=== PATIENT | male | born 1975 | race Two or more races ===

== ENCOUNTER 2023-06-09 07:21 | Inpatient (IN) | payer BC, OTHER ==
[2023-06-09] MEDS ORDERED: VANCOMYCIN PREMIX 1.75 GM 1,750 MG/350 ML PIGGYBACK IVPB ONE (08:20)
[2023-06-09] MEDS ORDERED: IMIPENEM/CILASTATIN SODIUM 500 MG in SODIUM CHLORIDE 100 ML IV ONE (08:21)
[2023-06-09 10:06] LABS: BASO % 0.5 % (0-2.0); EOS % 0.7 % (0-4.5); HEMATOCRIT 17.7 % (35.4-49); LYMPH % 12.8 % (8-40); MCH 27.6 pg (25.7-33.7); MCHC 35.7 g/dl (32.0-35.9); MEAN CELL VOLUME 77.2 fl (80-96); MEAN PLT VOLUME 7.9 fl (7.5-11.1); MONO % 6.1 % (3.8-10.2); NEUT % 79.9 % (42.8-82.8); PLATELET COUNT 166 10^3/uL (134-434); RBC 2.29 M/mm3 (4.00-5.60); RDW 20.8 % (11.9-15.9); WHITE BLOOD COUNT 8.1 K/mm3 (4.0-10.0)
[2023-06-09 10:11] LABS: HEMOGLOBIN 6.3 GM/dL (11.7-16.9)
[2023-06-09 10:13] LABS: INR 1.22 (0.83-1.09); PROTHROMBIN TIME (PATIENT) 14.1 SEC (9.7-13.0)
[2023-06-09 10:19] LABS: RETICULOCYTES 0.24 % (0.5-1.5)
[2023-06-09 10:46] LABS: ANISOCYTOSIS 3+; MACROCYTOSIS 0
[2023-06-09 10:49] LABS: POTASSIUM 4.4 mmol/L (3.5-5.1)
[2023-06-09 10:54] LABS: ALBUMIN 2.9 g/dl (3.4-5.0); BLOOD UREA NITROGEN 29.8 mg/dL (7-18); CALCIUM 8.6 mg/dL (8.5-10.1)
[2023-06-09 10:56] LABS: ERYTHROCYTE SEDIMENTATION RATE 105 mm/hr (0-20)
[2023-06-09 10:57] LABS: CREATININE 1.2 mg/dL (0.55-1.3)
[2023-06-09 10:58] LABS: TOT PROT 5.9 g/dl (6.4-8.2)
[2023-06-09 10:59] LABS: BILIRUBIN,TOTAL 1.8 mg/dL (0.2-1)
[2023-06-09 12:19] LABS: BILIRUBIN,DIRECT 0.5 mg/dL (0.0-0.2)
[2023-06-09] MEDS: CEFEPIME 1 GM in DEXTROSE 5%-WATER - 50 ML IVPB SCH (17:45)
[2023-06-09] MEDS ORDERED: CEFEPIME 1 GM/100 ML BAG IVPB ONE (17:46)
[2023-06-09] MEDS ORDERED: ACETAMINOPHEN 325 MG TABLET (FP) PO ONE (20:30)
[2023-06-09] MEDS ORDERED: ACETAMINOPHEN 325 MG TABLET (FP) ONE (20:45)
[2023-06-09 23:57] VITALS: BMI 27.8
[2023-06-10] MEDS: CEFEPIME 1 GM in DEXTROSE 5%-WATER - 50 ML IVPB SCH ×3 (01:53→21:32)
[2023-06-10] MEDS: INSULIN SLIDING SCALE (NOVOLOG) 1 VIAL SQ SCH ×3 (06:34→18:32)
[2023-06-10 08:42] LABS: BASO % 0.8 % (0-2.0); EOS % 1.3 % (0-4.5); LYMPH % 14.4 % (8-40); MCHC 36.9 g/dl (32.0-35.9); MONO % 6.5 % (3.8-10.2); PLATELET COUNT 148 10^3/uL (134-434); RBC 2.49 M/mm3 (4.00-5.60); RDW 20.3 % (11.9-15.9)
[2023-06-10 08:52] LABS: POTASSIUM 4.6 mmol/L (3.5-5.1)
[2023-06-10 08:57] LABS: BLOOD UREA NITROGEN 29.2 mg/dL (7-18); CALCIUM 8.3 mg/dL (8.5-10.1)
[2023-06-10 09:01] LABS: CREATININE 1.1 mg/dL (0.55-1.3)
[2023-06-10] MEDS ORDERED: VANCOMYCIN 1 GRAM (PRE-DOCKED) 1,000 MG/250 ML BAG IVPB SCH (10:00)
[2023-06-10 10:25] LABS: ALBUMIN 2.6 g/dl (3.4-5.0)
[2023-06-10 10:27] LABS: BILIRUBIN,DIRECT 0.4 mg/dL (0.0-0.2)
[2023-06-10 10:29] LABS: BILIRUBIN,TOTAL 1.2 mg/dL (0.2-1); TOT PROT 5.5 g/dl (6.4-8.2)
[2023-06-10] MEDS: ACETAMINOPHEN 1000 MG/100 ML BAG IVPB PRN (11:22)
[2023-06-10] MEDS: SODIUM CHLORIDE 0.45% 1,000 ML IV SCH (11:24)
[2023-06-10] MEDS ORDERED: INSULIN (NOVOLOG) ASPART 100 UNITS/ML 10ML VIAL ONE (12:28)
[2023-06-10 12:50] LABS: BILIRUBIN,DIRECT 0.4 mg/dL (0.0-0.2)
[2023-06-10 12:52] LABS: BILIRUBIN,TOTAL 1.8 mg/dL (0.2-1)
[2023-06-10] MEDS ORDERED: BISACODYL 5 MG TABLET.DR (FP) PO ONE (16:00)
[2023-06-10] MEDS: VANCOMYCIN/WATER FOR INJ (PEG) 1,000 MG/200 ML BAG IVPB SCH ×2 (16:55→23:08)
[2023-06-10] MEDS ORDERED: PEG 3350/NA SULF BICARB CL/KCL 4000 ML SOLN.RECON PO ONE (17:00)
[2023-06-10 17:26] LABS: EPI CELLS 2 /uL (0-25.1); HYALINE CASTS 1 /uL (0-3.1); PH,URINE 5.5 (5.0-8.0); URINE APPEARANCE CLEAR; URINE BACTERIA 0 /uL (0-1359); URINE BILIRUBIN NEGATIVE (NEGATIVE); URINE COLOR YELLOW; URINE GLUCOSE (UA) NEGATIVE (NEGATIVE); URINE KETONE NEGATIVE (NEGATIVE); URINE LEUK ESTERASE NEGATIVE (NEGATIVE); URINE NITRITE NEGATIVE (NEGATIVE); URINE PROTEIN 3+ (NEGATIVE); URINE RBC 50 /uL (0-23.9); URINE UROBILINOGEN 0.2 mg/dL (0.2-1.0); URINE WBC 10 /uL (0-25.8)
[2023-06-10 22:21] LABS: HEMATOCRIT 21.5 % (35.4-49); HEMOGLOBIN 7.7 GM/dL (11.7-16.9); MCH 27.6 pg (25.7-33.7); MCHC 35.7 g/dl (32.0-35.9); MEAN CELL VOLUME 77.3 fl (80-96); MEAN PLT VOLUME 7.9 fl (7.5-11.1); PLATELET COUNT 147 10^3/uL (134-434); RBC 2.78 M/mm3 (4.00-5.60); RDW 19.8 % (11.9-15.9); WHITE BLOOD COUNT 6.7 K/mm3 (4.0-10.0)
[2023-06-11] MEDS ORDERED: MELATONIN 5 MG TABLETS PO ONE (01:25)
[2023-06-11] MEDS: ACETAMINOPHEN 1000 MG/100 ML BAG IVPB PRN (01:44)
[2023-06-11] MEDS: CEFEPIME 1 GM in DEXTROSE 5%-WATER - 50 ML IVPB SCH ×3 (01:48→17:19)
[2023-06-11] MEDS ORDERED: INSULIN (NOVOLOG) ASPART 100 UNITS/ML 10ML VIAL ONE ×3 (06:41→17:08)
[2023-06-11] MEDS: INSULIN SLIDING SCALE (NOVOLOG) 1 VIAL SQ SCH ×3 (06:42→17:19)
[2023-06-11 12:41] LABS: BASO % 0.8 % (0-2.0); EOS % 1.4 % (0-4.5); HEMATOCRIT 24.6 % (35.4-49); HEMOGLOBIN 8.6 GM/dL (11.7-16.9); LYMPH % 11.1 % (8-40); MEAN CELL VOLUME 77.1 fl (80-96); MEAN PLT VOLUME 7.8 fl (7.5-11.1); NEUT % 81.7 % (42.8-82.8); PLATELET COUNT 162 10^3/uL (134-434); RBC 3.19 M/mm3 (4.00-5.60); RDW 19.5 % (11.9-15.9); WHITE BLOOD COUNT 8.1 K/mm3 (4.0-10.0)
[2023-06-11] MEDS: COLLAGENASE CLOSTRIDIUM HIST. 30 GRAMS TUBE TP SCH (12:55)
[2023-06-11] MEDS: SODIUM CHLORIDE 0.45% 1,000 ML IV SCH ×2 (12:56→17:26)
[2023-06-11] MEDS: VANCOMYCIN/WATER FOR INJ (PEG) 1,000 MG/200 ML BAG IVPB SCH ×2 (12:57→23:04)
[2023-06-11 13:15] LABS: POTASSIUM 4.3 mmol/L (3.5-5.1)
[2023-06-11 13:19] LABS: CALCIUM 7.9 mg/dL (8.5-10.1)
[2023-06-11 13:20] LABS: ALBUMIN 2.5 g/dl (3.4-5.0); BLOOD UREA NITROGEN 20.5 mg/dL (7-18)
[2023-06-11 13:24] LABS: BILIRUBIN,TOTAL 3.5 mg/dL (0.2-1); CREATININE 0.8 mg/dL (0.55-1.3); TOT PROT 5.2 g/dl (6.4-8.2)
[2023-06-11 15:24] LABS: BILIRUBIN,DIRECT 0.5 mg/dL (0.0-0.2)
[2023-06-12] MEDS: CEFEPIME 1 GM in DEXTROSE 5%-WATER - 50 ML IVPB SCH ×3 (01:45→17:48)
[2023-06-12] MEDS: INSULIN SLIDING SCALE (NOVOLOG) 1 VIAL SQ SCH ×3 (06:26→17:16)
[2023-06-12 09:03] LABS: BASO % 0.8 % (0-2.0); HEMATOCRIT 24.2 % (35.4-49); HEMOGLOBIN 8.8 GM/dL (11.7-16.9); LYMPH % 14.7 % (8-40); MCH 27.5 pg (25.7-33.7); MCHC 36.3 g/dl (32.0-35.9); MEAN CELL VOLUME 75.9 fl (80-96); MONO % 7.3 % (3.8-10.2); NEUT % 74.2 % (42.8-82.8); PLATELET COUNT 166 10^3/uL (134-434); RBC 3.19 M/mm3 (4.00-5.60); RDW 19.8 % (11.9-15.9); WHITE BLOOD COUNT 7.4 K/mm3 (4.0-10.0)
[2023-06-12 09:47] LABS: POTASSIUM 4.2 mmol/L (3.5-5.1)
[2023-06-12 10:19] LABS: CALCIUM 8.1 mg/dL (8.5-10.1)
[2023-06-12 10:35] LABS: CREATININE 0.9 mg/dL (0.55-1.3)
[2023-06-12] MEDS: MULTIVITAMINS THER W-MINERALS COMBO TABLET (FP) PO SCH (10:57)
[2023-06-12] MEDS: VANCOMYCIN/WATER FOR INJ (PEG) 1,000 MG/200 ML BAG IVPB SCH ×2 (10:57→23:35)
[2023-06-12] MEDS: COLLAGENASE CLOSTRIDIUM HIST. 30 GRAMS TUBE TP SCH (10:57)
[2023-06-12] MEDS: SODIUM CHLORIDE 0.45% 1,000 ML IV SCH (11:25)
[2023-06-12] MEDS ORDERED: INSULIN (NOVOLOG) ASPART 100 UNITS/ML 10ML VIAL ONE (12:20)
[2023-06-12] MEDS ORDERED: ACETAMINOPHEN 1000 MG/100 ML BAG IVPB ONE (21:41)
[2023-06-13] MEDS: SODIUM CHLORIDE 0.45% 1,000 ML IV SCH ×3 (02:29→16:57)
[2023-06-13] MEDS: CEFEPIME 1 GM in DEXTROSE 5%-WATER - 50 ML IVPB SCH ×3 (02:30→18:26)
[2023-06-13] MEDS: INSULIN SLIDING SCALE (NOVOLOG) 1 VIAL SQ SCH ×3 (06:19→17:34)
[2023-06-13] MEDS: MULTIVITAMINS THER W-MINERALS COMBO TABLET (FP) PO SCH (11:06)
[2023-06-13] MEDS: VANCOMYCIN/WATER FOR INJ (PEG) 1,000 MG/200 ML BAG IVPB SCH ×2 (11:07→23:48)
[2023-06-13] MEDS: COLLAGENASE CLOSTRIDIUM HIST. 30 GRAMS TUBE TP SCH (11:09)
[2023-06-13] MEDS ORDERED: BISACODYL 5 MG TABLET.DR (FP) PO ONE (16:00)
[2023-06-13] MEDS ORDERED: PEG 3350/NA SULF BICARB CL/KCL 4000 ML SOLN.RECON PO ONE (17:00)
[2023-06-14] MEDS: CEFEPIME 1 GM in DEXTROSE 5%-WATER - 50 ML IVPB SCH ×3 (01:32→17:00)
[2023-06-14] MEDS: INSULIN SLIDING SCALE (NOVOLOG) 1 VIAL SQ SCH ×3 (06:24→17:03)
[2023-06-14] MEDS: SODIUM CHLORIDE 0.45% 1,000 ML IV SCH ×3 (07:10→19:02)
[2023-06-14 10:17] LABS: BASO % 1.4 % (0-2.0); EOS % 2.1 % (0-4.5); HEMATOCRIT 26.6 % (35.4-49); HEMOGLOBIN 9.7 GM/dL (11.7-16.9); LYMPH % 12.8 % (8-40); MCH 28.3 pg (25.7-33.7); MCHC 36.3 g/dl (32.0-35.9); MEAN CELL VOLUME 77.9 fl (80-96); MEAN PLT VOLUME 8.2 fl (7.5-11.1); MONO % 4.8 % (3.8-10.2); NEUT % 78.9 % (42.8-82.8); PLATELET COUNT 195 10^3/uL (134-434); RBC 3.42 M/mm3 (4.00-5.60); RDW 20.9 % (11.9-15.9); WHITE BLOOD COUNT 9.9 K/mm3 (4.0-10.0)
[2023-06-14] MEDS: COLLAGENASE CLOSTRIDIUM HIST. 30 GRAMS TUBE TP SCH (10:24)
[2023-06-14] MEDS: MULTIVITAMINS THER W-MINERALS COMBO TABLET (FP) PO SCH ×2 (10:26→19:03)
[2023-06-14 10:36] LABS: CALCIUM 8.5 mg/dL (8.5-10.1)
[2023-06-14 10:37] LABS: BLOOD UREA NITROGEN 15.2 mg/dL (7-18)
[2023-06-14 10:38] LABS: CREATININE 0.8 mg/dL (0.55-1.3)
[2023-06-14 10:47] LABS: BILIRUBIN,DIRECT 0.6 mg/dL (0.0-0.2)
[2023-06-14 10:48] LABS: BILIRUBIN,TOTAL 2.8 mg/dL (0.2-1)
[2023-06-14] MEDS ORDERED: ACETAMINOPHEN 1000 MG/100 ML BAG IVPB ONE (11:00)
[2023-06-14] MEDS: VANCOMYCIN/WATER FOR INJ (PEG) 1,000 MG/200 ML BAG IVPB SCH ×2 (12:25→23:00)
[2023-06-14] MEDS ORDERED: INSULIN (NOVOLOG) ASPART 100 UNITS/ML 10ML VIAL ONE (16:56)
[2023-06-14] MEDS ORDERED: ONDANSETRON 4 MG/2 ML VIAL IVPUSH ONE (18:49)
[2023-06-15] MEDS: CEFEPIME 1 GM in DEXTROSE 5%-WATER - 50 ML IVPB SCH ×2 (02:40→10:51)
[2023-06-15] MEDS: INSULIN SLIDING SCALE (NOVOLOG) 1 VIAL SQ SCH ×3 (08:02→17:42)
[2023-06-15 09:33] LABS: BASO % 1.2 % (0-2.0); HEMATOCRIT 26.2 % (35.4-49); HEMOGLOBIN 9.3 GM/dL (11.7-16.9); LYMPH % 11.6 % (8-40); MCH 27.8 pg (25.7-33.7); MCHC 35.6 g/dl (32.0-35.9); MEAN CELL VOLUME 78.2 fl (80-96); MEAN PLT VOLUME 7.9 fl (7.5-11.1); MONO % 5.7 % (3.8-10.2); NEUT % 79.5 % (42.8-82.8); PLATELET COUNT 193 10^3/uL (134-434); RBC 3.35 M/mm3 (4.00-5.60); RDW 20.9 % (11.9-15.9); WHITE BLOOD COUNT 7.7 K/mm3 (4.0-10.0)
[2023-06-15 09:57] LABS: POTASSIUM 3.7 mmol/L (3.5-5.1)
[2023-06-15 10:01] LABS: BLOOD UREA NITROGEN 16.3 mg/dL (7-18); CALCIUM 8.4 mg/dL (8.5-10.1)
[2023-06-15 10:04] LABS: CREATININE 0.9 mg/dL (0.55-1.3)
[2023-06-15 10:06] LABS: TOT PROT 5.8 g/dl (6.4-8.2)
[2023-06-15 10:38] LABS: BILIRUBIN,TOTAL 2.1 mg/dL (0.2-1)
[2023-06-15] MEDS: MULTIVITAMINS THER W-MINERALS COMBO TABLET (FP) PO SCH (10:54)
[2023-06-15] MEDS: COLLAGENASE CLOSTRIDIUM HIST. 30 GRAMS TUBE TP SCH (10:54)
[2023-06-15] MEDS: PANTOPRAZOLE 40 MG TABLET PO SCH (10:54)
[2023-06-15] MEDS: VANCOMYCIN/WATER FOR INJ (PEG) 1,000 MG/200 ML BAG IVPB SCH ×2 (12:12→23:16)
[2023-06-15] MEDS: SODIUM CHLORIDE 0.45% 1,000 ML IV SCH (12:18)
[2023-06-16] MEDS: INSULIN SLIDING SCALE (NOVOLOG) 1 VIAL SQ SCH ×3 (07:08→18:33)
[2023-06-16] MEDS ORDERED: INSULIN (NOVOLOG) ASPART 100 UNITS/ML 10ML VIAL ONE ×2 (07:26→19:52)
[2023-06-16] MEDS: MULTIVITAMINS THER W-MINERALS COMBO TABLET (FP) PO SCH (10:21)
[2023-06-16] MEDS: PANTOPRAZOLE 40 MG TABLET PO SCH (10:21)
[2023-06-16] MEDS ORDERED: PROPOFOL 20 ML ONE (11:45)
[2023-06-16] MEDS ORDERED: FENTANYL CITRATE/PF 50 MCG/ML VIAL ONE (11:45)
[2023-06-16] MEDS ORDERED: MIDAZOLAM HCL 2 MG/2 ML SINGLE DOSE VIAL ONE ×2 (11:46→12:42)
[2023-06-16] MEDS ORDERED: LIDOCAINE HCL 2% (20ML MULTI-DOSE VIAL) ONE (12:14)
[2023-06-16] MEDS ORDERED: BUPIVACAINE HCL/PF 0.5% (5MG/ML) 10 ML VIAL ONE (12:14)
[2023-06-16] MEDS ORDERED: LIDOCAINE HCL 2% (50ML VIAL) INF ONE (12:40)
[2023-06-16] MEDS ORDERED: VANCOMYCIN 1,000 MG VIAL (RESTRICTED TO ID ONLY) ONE (13:00)
[2023-06-16] MEDS ORDERED: BUPIVACAINE HCL/PF 0.5% (5 MG/ML) 30 ML VIAL IJ ONE (13:07)
[2023-06-16] MEDS: SODIUM CHLORIDE 0.45% 1,000 ML IV SCH (13:20)
[2023-06-16] MEDS ORDERED: LACTATED RINGERS SOLUTION 1,000 ML IV SCH (13:30)
[2023-06-16] MEDS: COLLAGENASE CLOSTRIDIUM HIST. 30 GRAMS TUBE TP SCH (15:17)
[2023-06-16] MEDS: VANCOMYCIN/WATER FOR INJ (PEG) 1,000 MG/200 ML BAG IVPB SCH (18:32)
[2023-06-17] MEDS: VANCOMYCIN/WATER FOR INJ (PEG) 1,000 MG/200 ML BAG IVPB SCH ×3 (00:08→22:46)
[2023-06-17] MEDS: INSULIN SLIDING SCALE (NOVOLOG) 1 VIAL SQ SCH ×3 (06:55→17:41)
[2023-06-17 08:49] LABS: POTASSIUM 4.1 mmol/L (3.5-5.1)
[2023-06-17 08:49] LABS: BASO % 1.2 % (0-2.0); EOS % 1.9 % (0-4.5); HEMATOCRIT 26.3 % (35.4-49); HEMOGLOBIN 9.5 GM/dL (11.7-16.9); LYMPH % 10.8 % (8-40); MCH 28.1 pg (25.7-33.7); MEAN CELL VOLUME 77.9 fl (80-96); MEAN PLT VOLUME 7.8 fl (7.5-11.1); MONO % 6.8 % (3.8-10.2); NEUT % 79.3 % (42.8-82.8); PLATELET COUNT 200 10^3/uL (134-434); RBC 3.38 M/mm3 (4.00-5.60); RDW 21.7 % (11.9-15.9); WHITE BLOOD COUNT 9.8 K/mm3 (4.0-10.0)
[2023-06-17 08:51] LABS: CALCIUM 8.3 mg/dL (8.5-10.1)
[2023-06-17 08:52] LABS: ALBUMIN 3.1 g/dl (3.4-5.0); BLOOD UREA NITROGEN 18.3 mg/dL (7-18)
[2023-06-17 08:59] LABS: BILIRUBIN,TOTAL 2.4 mg/dL (0.2-1); TOT PROT 6.3 g/dl (6.4-8.2)
[2023-06-17] MEDS: SODIUM CHLORIDE 0.45% 1,000 ML IV SCH (09:52)
[2023-06-17] MEDS: MULTIVITAMINS THER W-MINERALS COMBO TABLET (FP) PO SCH (10:41)
[2023-06-17] MEDS: PANTOPRAZOLE 40 MG TABLET PO SCH (10:41)
[2023-06-17] MEDS ORDERED: ONDANSETRON *ODT* 4 MG TABLET SL PRN (11:43)
[2023-06-17] MEDS ORDERED: ACETAMINOPHEN 325 MG TABLET (FP) PO ONE (19:46)
[2023-06-17] MEDS ORDERED: INSULIN (NOVOLOG) ASPART 100 UNITS/ML 10ML VIAL ONE (21:10)
[2023-06-17] MEDS: INSULIN (LEVEMIR) 100 UNITS/ML UNITS SQ SCH (21:49)
[2023-06-18] MEDS: INSULIN SLIDING SCALE (NOVOLOG) 1 VIAL SQ SCH ×3 (06:14→17:06)
[2023-06-18] MEDS: MULTIVITAMINS THER W-MINERALS COMBO TABLET (FP) PO SCH (10:17)
[2023-06-18] MEDS: PANTOPRAZOLE 40 MG TABLET PO SCH (10:17)
[2023-06-18] MEDS: VANCOMYCIN/WATER FOR INJ (PEG) 1,000 MG/200 ML BAG IVPB SCH ×2 (11:05→23:37)
[2023-06-18] MEDS ORDERED: traMADol HCL 50 MG TABLET PO PRN (11:22)
[2023-06-18] MEDS: CEFEPIME 1 GM in DEXTROSE 5%-WATER 100 ML IVPB SCH ×2 (11:55→17:51)
[2023-06-18] MEDS ORDERED: FENTANYL CITRATE/PF 50 MCG/ML VIAL ONE (12:52)
[2023-06-18] MEDS ORDERED: SODIUM CHLORIDE 500 ML IV SCH (13:15)
[2023-06-18] MEDS ORDERED: FENTANYL CITRATE/PF 50 MCG/ML VIAL IVPUSH ONE ×2 (13:20→13:30)
[2023-06-18] MEDS ORDERED: INSULIN (NOVOLOG) ASPART 100 UNITS/ML 10ML VIAL ONE (16:58)
[2023-06-18] MEDS: INSULIN (LEVEMIR) 100 UNITS/ML UNITS SQ SCH (22:48)
[2023-06-19] MEDS: CEFEPIME 1 GM in DEXTROSE 5%-WATER 100 ML IVPB SCH ×2 (02:12→10:23)
[2023-06-19] MEDS: INSULIN SLIDING SCALE (NOVOLOG) 1 VIAL SQ SCH ×3 (07:01→17:22)
[2023-06-19] MEDS: PANTOPRAZOLE 40 MG TABLET PO SCH (10:23)
[2023-06-19] MEDS: MULTIVITAMINS THER W-MINERALS COMBO TABLET (FP) PO SCH (10:23)
[2023-06-19] MEDS: VANCOMYCIN/WATER FOR INJ (PEG) 1,000 MG/200 ML BAG IVPB SCH (13:50)
[2023-06-19] MEDS: INSULIN (LEVEMIR) 100 UNITS/ML UNITS SQ SCH (22:44)
[2023-06-20] MEDS: INSULIN SLIDING SCALE (NOVOLOG) 1 VIAL SQ SCH ×3 (07:28→17:14)
[2023-06-20] MEDS: PANTOPRAZOLE 40 MG TABLET PO SCH (09:20)
[2023-06-20] MEDS: MULTIVITAMINS THER W-MINERALS COMBO TABLET (FP) PO SCH (09:20)
[2023-06-20] MEDS: HEPARIN NA (PORCINE) 5,000 UNITS/ML 1ML VIAL SQ SCH ×2 (12:32→22:20)
[2023-06-20] MEDS: INSULIN (LEVEMIR) 100 UNITS/ML UNITS SQ SCH (22:20)
[2023-06-21] MEDS: INSULIN SLIDING SCALE (NOVOLOG) 1 VIAL SQ SCH ×2 (07:27→12:23)
[2023-06-21] MEDS: PANTOPRAZOLE 40 MG TABLET PO SCH (10:17)
[2023-06-21] MEDS: MULTIVITAMINS THER W-MINERALS COMBO TABLET (FP) PO SCH (10:17)
[2023-06-21] MEDS: HEPARIN NA (PORCINE) 5,000 UNITS/ML 1ML VIAL SQ SCH (10:17)
[2023-06-21 10:28] VITALS: BP 134/66; PULSE 77; RESP 18; TEMP 97.9
[2023-06-21] MEDS ORDERED: INSULIN (NOVOLOG) ASPART 100 UNITS/ML 10ML VIAL ONE (12:20)
== END 2023-06-21 15:32 | disposition home or self-care (01) | DRG 617 ==
LOC: JER 07:21 → JERBED 11:29 → J8W 22:06
PROVIDERS: ADMIT Internal Medicine; ATTEND Internal Medicine
PROC: 30233N1 Transfusion of Nonautologous Red Blood Cells into Peripheral Vein, Percutaneous Approach (ICD-10-PCS; 2023-06-09)
PROC: 0DB98ZX Excision of Duodenum, Via Natural or Artificial Opening Endoscopic, Diagnostic (ICD-10-PCS; 2023-06-14)
PROC: 0DB58ZX Excision of Esophagus, Via Natural or Artificial Opening Endoscopic, Diagnostic (ICD-10-PCS; 2023-06-14)
PROC: 0DBN8ZX Excision of Sigmoid Colon, Via Natural or Artificial Opening Endoscopic, Diagnostic (ICD-10-PCS; 2023-06-14)
PROC: 0DBP8ZX Excision of Rectum, Via Natural or Artificial Opening Endoscopic, Diagnostic (ICD-10-PCS; 2023-06-14)
PROC: 0Y6Q0Z1 Detachment at Left 1st Toe, High, Open Approach (ICD-10-PCS; principal; 2023-06-16 12:00)
PROC: 07BH3ZX Excision of Right Inguinal Lymphatic, Percutaneous Approach, Diagnostic (ICD-10-PCS; 2023-06-17)
PROC: 07DR3ZX Extraction of Iliac Bone Marrow, Percutaneous Approach, Diagnostic (ICD-10-PCS; 2023-06-18)
DX: E11.69 Type 2 diabetes mellitus with other specified complication (principal); M86.172 Other acute osteomyelitis, left ankle and foot; E11.621 Type 2 diabetes mellitus with foot ulcer; L97.529 Non-pressure chronic ulcer of other part of left foot with unspecified severity; L03.032 Cellulitis of left toe; Z88.0 Allergy status to penicillin; D64.9 Anemia, unspecified; D55.0 Anemia due to glucose-6-phosphate dehydrogenase [G6PD] deficiency; E11.65 Type 2 diabetes mellitus with hyperglycemia; K44.9 Diaphragmatic hernia without obstruction or gangrene; K64.8 Other hemorrhoids; K57.90 Diverticulosis of intestine, part unspecified, without perforation or abscess without bleeding; K63.5 Polyp of colon; K62.1 Rectal polyp; K21.00 Gastro-esophageal reflux disease with esophagitis, without bleeding
CPT/HCPCS: 20225; 36415; 36430; 38505; 71045-TC-FY; 71250-TC; 73630-TC-LT; 73723-LT; 74176-TC; 76705-TC; 80048; 80053; 80076; 81003; 82247; 82248; 82550; 82728; 82955; 82962; 83010; 83021; 83036; 83051; 83540; 83550; 83615; 84155; 84165; 85025; 85027; 85041; 85045; 85610; 85651; 85660; 86140; 86704; 86803; 86850; 86880; 86900; 86901; 86922; 87040; 87070; 87075; 87086; 87205; 87340; 87517; 88300-TC; 88305-TC; 88311-TC; 93005; 93010; 93970-TC; 94760; 99285-25; G0480; J1644; J3370; P9058

== ENCOUNTER 2023-07-21 07:27 | Inpatient (IN) | payer BC, OTHER ==
[2023-07-21 07:35] VITALS: BMI 31.6
[2023-07-21 09:54] LABS: EOS % 0.8 % (0-4.5); HEMATOCRIT 25.2 % (35.4-49); HEMOGLOBIN 9.1 GM/dL (11.7-16.9); LYMPH % 10.9 % (8-40); MCH 28.8 pg (25.7-33.7); MCHC 36.2 g/dl (32.0-35.9); MEAN CELL VOLUME 79.6 fl (80-96); MEAN PLT VOLUME 7.8 fl (7.5-11.1); NEUT % 80.3 % (42.8-82.8); PLATELET COUNT 187 10^3/uL (134-434); RBC 3.17 M/mm3 (4.00-5.60); RDW 20.8 % (11.9-15.9); WHITE BLOOD COUNT 8.9 K/mm3 (4.0-10.0)
[2023-07-21 09:56] LABS: EPI CELLS 1 /uL (0-25.1); HYALINE CASTS 0 /uL (0-3.1); PH,URINE 5.5 (5.0-8.0); URINE APPEARANCE CLEAR; URINE BACTERIA 5 /uL (0-1359); URINE BILIRUBIN NEGATIVE (NEGATIVE); URINE COLOR YELLOW; URINE GLUCOSE (UA) NEGATIVE (NEGATIVE); URINE KETONE NEGATIVE (NEGATIVE); URINE LEUK ESTERASE NEGATIVE (NEGATIVE); URINE NITRITE NEGATIVE (NEGATIVE); URINE PROTEIN 3+ (NEGATIVE); URINE RBC 161 /uL (0-23.9); URINE WBC 7 /uL (0-25.8)
[2023-07-21 09:57] LABS: INR 1.22 (0.83-1.09); PROTHROMBIN TIME (PATIENT) 14.1 SEC (9.7-13.0)
[2023-07-21 10:00] LABS: ACTIVATED PTT 34.3 SECONDS (25.2-36.5)
[2023-07-21 10:17] LABS: ANISOCYTOSIS 2+; MACROCYTOSIS 1+
[2023-07-21 10:19] LABS: POTASSIUM 4.4 mmol/L (3.5-5.1)
[2023-07-21 10:21] LABS: ALBUMIN 3.2 g/dl (3.4-5.0); BLOOD UREA NITROGEN 23.8 mg/dL (7-18); CALCIUM 8.4 mg/dL (8.5-10.1)
[2023-07-21 10:25] LABS: CREATININE 1.1 mg/dL (0.55-1.3)
[2023-07-21 10:26] LABS: BILIRUBIN,TOTAL 2.4 mg/dL (0.2-1); TOT PROT 6.2 g/dl (6.4-8.2)
[2023-07-21] MEDS ORDERED: FUROSEMIDE 40 MG/4 ML INJECTABLE VIAL IVPUSH ONE (10:47)
[2023-07-21] MEDS ORDERED: CEFTRIAXONE 1,000 MG in DEXTROSE 5%-WATER - 50 ML IVPB ONE (10:47)
[2023-07-21] MEDS ORDERED: AZITHROMYCIN 250 MG TABLET PO ONE (10:48)
[2023-07-21] MEDS ORDERED: FUROSEMIDE 40 MG/4 ML INJECTABLE VIAL ONE (11:14)
[2023-07-21] MEDS ORDERED: CEFTRIAXONE 1 GM/50 ML BAG ONE (11:16)
[2023-07-21] MEDS ORDERED: AZITHROMYCIN 500 MG TABLET ONE (11:40)
[2023-07-21 11:45] LABS: BILIRUBIN,DIRECT 0.8 mg/dL (0.0-0.2)
[2023-07-21] MEDS ORDERED: ACETAMINOPHEN 1000 MG/100 ML BAG IVPB PRN (14:23)
[2023-07-21] MEDS ORDERED: TRIMETHOBENZAMIDE HCL 200MG/2ML INJ IM PRN (14:24)
[2023-07-21] MEDS ORDERED: ACETAMINOPHEN INJECTION 100 ML IVPB ONE (16:28)
[2023-07-22] MEDS: FUROSEMIDE 40 MG/4 ML INJECTABLE VIAL IVPUSH SCH ×2 (05:32→13:28)
[2023-07-22 08:28] LABS: BASO % 1.2 % (0-2.0); HEMATOCRIT 27.8 % (35.4-49); LYMPH % 14.7 % (8-40); MCH 28.6 pg (25.7-33.7); MEAN CELL VOLUME 79.4 fl (80-96); MEAN PLT VOLUME 7.9 fl (7.5-11.1); MONO % 6.9 % (3.8-10.2); NEUT % 76.2 % (42.8-82.8); PLATELET COUNT 206 10^3/uL (134-434); RDW 20.7 % (11.9-15.9)
[2023-07-22 09:02] LABS: ALBUMIN 3.1 g/dl (3.4-5.0); BLOOD UREA NITROGEN 28.2 mg/dL (7-18); CALCIUM 8.5 mg/dL (8.5-10.1)
[2023-07-22 09:06] LABS: CREATININE 1.2 mg/dL (0.55-1.3)
[2023-07-22 09:07] LABS: BILIRUBIN,TOTAL 2.1 mg/dL (0.2-1)
[2023-07-22 09:08] LABS: TOT PROT 6.2 g/dl (6.4-8.2)
[2023-07-22] MEDS ORDERED: AZITHROMYCIN IVPB 500 MG/250 ML BAG IVPB SCH (10:00)
[2023-07-22] MEDS: PANTOPRAZOLE 40 MG TABLET PO SCH (17:02)
[2023-07-22] MEDS: LISINOPRIL 5 MG TABLET PO SCH (17:03)
[2023-07-23] MEDS: FUROSEMIDE 40 MG/4 ML INJECTABLE VIAL IVPUSH SCH ×2 (05:42→13:52)
[2023-07-23 09:27] LABS: BASO % 0.7 % (0-2.0); EOS % 0.7 % (0-4.5); HEMATOCRIT 25.7 % (35.4-49); HEMOGLOBIN 9.3 GM/dL (11.7-16.9); LYMPH % 12.8 % (8-40); MCH 28.6 pg (25.7-33.7); MCHC 36.3 g/dl (32.0-35.9); MEAN CELL VOLUME 78.7 fl (80-96); MEAN PLT VOLUME 7.9 fl (7.5-11.1); NEUT % 78.8 % (42.8-82.8); PLATELET COUNT 183 10^3/uL (134-434); RBC 3.26 M/mm3 (4.00-5.60); RDW 20.1 % (11.9-15.9); WHITE BLOOD COUNT 7.5 K/mm3 (4.0-10.0)
[2023-07-23 09:56] LABS: ALBUMIN 3.2 g/dl (3.4-5.0); BLOOD UREA NITROGEN 25.3 mg/dL (7-18); CREATININE 1.2 mg/dL (0.55-1.3)
[2023-07-23 09:58] LABS: BILIRUBIN,TOTAL 2.4 mg/dL (0.2-1); CALCIUM 8.9 mg/dL (8.5-10.1)
[2023-07-23] MEDS: PANTOPRAZOLE 40 MG TABLET PO SCH (10:17)
[2023-07-23] MEDS: LISINOPRIL 5 MG TABLET PO SCH (10:17)
[2023-07-23 21:06] LABS: ANTIGLOMERULAR BASEMENT MEN.AB <0.2 units (0.0-0.9)
[2023-07-24] MEDS ORDERED: FUROSEMIDE 40 MG TABLET (FP) PO ONE (06:00)
[2023-07-24] MEDS: FUROSEMIDE 40 MG/4 ML INJECTABLE VIAL IVPUSH SCH ×2 (06:39→18:13)
[2023-07-24] MEDS: PANTOPRAZOLE 40 MG TABLET PO SCH (09:02)
[2023-07-24] MEDS: metoPROLOL SUCCINATE 25 MG TAB.SR.24H (FP) PO SCH (09:02)
[2023-07-24] MEDS ORDERED: ALBUTEROL SO4 2.5/IPRATROPIUM 0.5 INH SOL 3 ML VIAL.NEB. NEB PRN (09:32)
[2023-07-24] MEDS: INSULIN ASPART SLIDING SCALE (NOVOLOG) 1 VIAL SQ SCH ×2 (11:33→16:35)
[2023-07-24] MEDS: INSULIN (LEVEMIR) 100 UNITS/ML UNITS SQ SCH (21:25)
[2023-07-25] MEDS: FUROSEMIDE 40 MG/4 ML INJECTABLE VIAL IVPUSH SCH ×2 (05:55→13:14)
[2023-07-25] MEDS: INSULIN ASPART SLIDING SCALE (NOVOLOG) 1 VIAL SQ SCH ×3 (06:40→16:56)
[2023-07-25] MEDS: metoPROLOL SUCCINATE 25 MG TAB.SR.24H (FP) PO SCH (09:25)
[2023-07-25] MEDS: PANTOPRAZOLE 40 MG TABLET PO SCH (09:25)
[2023-07-25] MEDS: SACUBITRIL/VALSARTAN 24 MG-26 MG TABLET PO SCH ×2 (09:25→21:25)
[2023-07-25] MEDS ORDERED: INSULIN ASPART SLIDING SCALE (NOVOLOG) 1 VIAL SQ ONE (11:31)
[2023-07-25] MEDS: INSULIN (LEVEMIR) 100 UNITS/ML UNITS SQ SCH (21:25)
[2023-07-26] MEDS: INSULIN ASPART SLIDING SCALE (NOVOLOG) 1 VIAL SQ SCH ×3 (05:59→17:10)
[2023-07-26] MEDS: FUROSEMIDE 40 MG/4 ML INJECTABLE VIAL IVPUSH SCH ×2 (05:59→13:56)
[2023-07-26] MEDS ORDERED: INSULIN (LEVEMIR) 100 UNITS/ML UNITS SQ ONE (07:19)
[2023-07-26] MEDS ORDERED: INSULIN ASPART SLIDING SCALE (NOVOLOG) 1 VIAL SQ ONE (07:19)
[2023-07-26] MEDS: SACUBITRIL/VALSARTAN 24 MG-26 MG TABLET PO SCH ×2 (09:10→21:34)
[2023-07-26] MEDS: PANTOPRAZOLE 40 MG TABLET PO SCH (09:11)
[2023-07-26] MEDS: metoPROLOL SUCCINATE 25 MG TAB.SR.24H (FP) PO SCH (09:11)
[2023-07-26 09:23] LABS: BASO % 1.1 % (0-2.0); EOS % 1.5 % (0-4.5); HEMATOCRIT 26.8 % (35.4-49); HEMOGLOBIN 9.5 GM/dL (11.7-16.9); LYMPH % 14.6 % (8-40); MCH 27.8 pg (25.7-33.7); MCHC 35.5 g/dl (32.0-35.9); MEAN CELL VOLUME 78.4 fl (80-96); MONO % 5.9 % (3.8-10.2); NEUT % 76.9 % (42.8-82.8); PLATELET COUNT 216 10^3/uL (134-434); RBC 3.41 M/mm3 (4.00-5.60); RDW 20.7 % (11.9-15.9); WHITE BLOOD COUNT 8.4 K/mm3 (4.0-10.0)
[2023-07-26 09:40] LABS: POTASSIUM 4.5 mmol/L (3.5-5.1)
[2023-07-26 09:43] LABS: CALCIUM 8.3 mg/dL (8.5-10.1)
[2023-07-26 09:44] LABS: ALBUMIN 3.2 g/dl (3.4-5.0); BLOOD UREA NITROGEN 36.4 mg/dL (7-18)
[2023-07-26 09:47] LABS: CREATININE 1.2 mg/dL (0.55-1.3)
[2023-07-26 09:48] LABS: TOT PROT 6.2 g/dl (6.4-8.2)
[2023-07-26 09:49] LABS: BILIRUBIN,TOTAL 2.3 mg/dL (0.2-1)
[2023-07-26] MEDS ORDERED: FENTANYL CITRATE/PF 50 MCG/ML VIAL ONE (10:36)
[2023-07-26] MEDS ORDERED: MIDAZOLAM HCL 2 MG/2 ML SINGLE DOSE VIAL ONE (10:36)
[2023-07-26] MEDS ORDERED: SODIUM CHLORIDE 500 ML IV ONE (11:30)
[2023-07-26] MEDS ORDERED: FENTANYL CITRATE/PF 50 MCG/ML VIAL IVPUSH ONE (11:48)
[2023-07-26] MEDS ORDERED: MIDAZOLAM HCL 2 MG/2 ML SINGLE DOSE VIAL IVPUSH ONE (11:48)
[2023-07-26 12:49] LABS: ANISOCYTOSIS 2+; MACROCYTOSIS 0
[2023-07-26 16:08] LABS: ATYPICAL pANCA <1:20 titer (Neg:<1:20); C-ANCA <1:20 titer (Neg:<1:20)
[2023-07-26 16:08] LABS: ATYPICAL pANCA <1:20 titer (Neg:<1:20); C-ANCA <1:20 titer (Neg:<1:20)
[2023-07-26] MEDS: INSULIN (LEVEMIR) 100 UNITS/ML UNITS SQ SCH (21:39)
[2023-07-27] MEDS: FUROSEMIDE 40 MG/4 ML INJECTABLE VIAL IVPUSH SCH ×2 (06:18→13:01)
[2023-07-27] MEDS: INSULIN ASPART SLIDING SCALE (NOVOLOG) 1 VIAL SQ SCH ×3 (06:23→16:58)
[2023-07-27 08:49] LABS: HEMATOCRIT 30.4 % (35.4-49); HEMOGLOBIN 10.6 GM/dL (11.7-16.9); MCH 27.5 pg (25.7-33.7); MCHC 34.9 g/dl (32.0-35.9); MEAN CELL VOLUME 78.6 fl (80-96); PLATELET COUNT 271 10^3/uL (134-434); RBC 3.87 M/mm3 (4.00-5.60); RDW 20.8 % (11.9-15.9)
[2023-07-27] MEDS: PANTOPRAZOLE 40 MG TABLET PO SCH (09:03)
[2023-07-27] MEDS: SACUBITRIL/VALSARTAN 24 MG-26 MG TABLET PO SCH ×2 (09:03→21:24)
[2023-07-27] MEDS: metoPROLOL SUCCINATE 25 MG TAB.SR.24H (FP) PO SCH (09:03)
[2023-07-27 09:12] LABS: CALCIUM 8.8 mg/dL (8.5-10.1)
[2023-07-27 09:13] LABS: ALBUMIN 3.4 g/dl (3.4-5.0); BLOOD UREA NITROGEN 32.9 mg/dL (7-18)
[2023-07-27 09:16] LABS: CREATININE 1.2 mg/dL (0.55-1.3)
[2023-07-27 09:18] LABS: BILIRUBIN,TOTAL 2.7 mg/dL (0.2-1); TOT PROT 6.7 g/dl (6.4-8.2)
[2023-07-27] MEDS: INSULIN (LEVEMIR) 100 UNITS/ML UNITS SQ SCH (21:30)
[2023-07-28] MEDS: FUROSEMIDE 40 MG/4 ML INJECTABLE VIAL IVPUSH SCH ×2 (06:09→13:06)
[2023-07-28] MEDS: INSULIN ASPART SLIDING SCALE (NOVOLOG) 1 VIAL SQ SCH ×3 (06:15→16:39)
[2023-07-28] MEDS ORDERED: REGADENOSON 0.4 MG/5 ML PRE-FILLED SYRINGE IVPUSH ONE ×2 (09:29→10:00)
[2023-07-28] MEDS ORDERED: AMINOPHYLLINE 250 MG/10 ML VIAL IVPUSH ONE (11:25)
[2023-07-28] MEDS ORDERED: AMINOPHYLLINE 250 MG/10 ML VIAL ONE (11:48)
[2023-07-28] MEDS: PANTOPRAZOLE 40 MG TABLET PO SCH (12:32)
[2023-07-28] MEDS: SACUBITRIL/VALSARTAN 24 MG-26 MG TABLET PO SCH ×2 (12:32→21:28)
[2023-07-28] MEDS: metoPROLOL SUCCINATE 25 MG TAB.SR.24H (FP) PO SCH (12:33)
[2023-07-28] MEDS: INSULIN (LEVEMIR) 100 UNITS/ML UNITS SQ SCH (21:27)
[2023-07-29] MEDS: FUROSEMIDE 40 MG/4 ML INJECTABLE VIAL IVPUSH SCH ×2 (06:11→13:24)
[2023-07-29] MEDS: INSULIN ASPART SLIDING SCALE (NOVOLOG) 1 VIAL SQ SCH ×3 (06:11→16:54)
[2023-07-29 08:40] LABS: HEMATOCRIT 23.2 % (35.4-49); HEMOGLOBIN 8.6 GM/dL (11.7-16.9); MCH 28.5 pg (25.7-33.7); MCHC 37.3 g/dl (32.0-35.9); MEAN CELL VOLUME 76.5 fl (80-96); PLATELET COUNT 198 10^3/uL (134-434); RBC 3.03 M/mm3 (4.00-5.60); RDW 20.8 % (11.9-15.9); WHITE BLOOD COUNT 7.8 K/mm3 (4.0-10.0)
[2023-07-29 09:18] LABS: POTASSIUM 4.3 mmol/L (3.5-5.1)
[2023-07-29 09:20] LABS: BLOOD UREA NITROGEN 39.2 mg/dL (7-18); CALCIUM 8.4 mg/dL (8.5-10.1)
[2023-07-29 09:23] LABS: CREATININE 1.2 mg/dL (0.55-1.3)
[2023-07-29 09:25] LABS: TOT PROT 5.9 g/dl (6.4-8.2)
[2023-07-29 09:26] LABS: BILIRUBIN,TOTAL 3.6 mg/dL (0.2-1)
[2023-07-29] MEDS: SACUBITRIL/VALSARTAN 24 MG-26 MG TABLET PO SCH ×2 (09:53→21:24)
[2023-07-29] MEDS: PANTOPRAZOLE 40 MG TABLET PO SCH (09:54)
[2023-07-29] MEDS: metoPROLOL SUCCINATE 25 MG TAB.SR.24H (FP) PO SCH (09:54)
[2023-07-29] MEDS ORDERED: BUPIVACAINE HCL/PF 0.5% (5MG/ML) 10 ML VIAL ONE ×2 (13:03→13:09)
[2023-07-29] MEDS ORDERED: ceFAZolin 2 GRAM PREMIX BAG IVPB ONE (14:12)
[2023-07-29] MEDS ORDERED: PROPOFOL 20 ML ONE ×2 (14:52→16:02)
[2023-07-29] MEDS ORDERED: LIDOCAINE HCL/PF 2% SDV 5ML VIAL ONE (14:52)
[2023-07-29] MEDS ORDERED: MIDAZOLAM HCL 2 MG/2 ML SINGLE DOSE VIAL ONE (14:52)
[2023-07-29] MEDS ORDERED: ceFAZolin SODIUM 1 GM VIAL ONE (16:12)
[2023-07-29] MEDS ORDERED: LIDOCAINE HCL 1%, 10 MG/ML (50 mL VIAL) INF ONE ×2 (16:32)
[2023-07-29] MEDS ORDERED: BUPIVACAINE HCL/PF 0.5% (5MG/ML) 10 ML VIAL IJ ONE ×2 (16:32)
[2023-07-29] MEDS ORDERED: LACTATED RINGERS SOLUTION 1,000 ML IV SCH (17:00)
[2023-07-29] MEDS ORDERED: TRIMETHOBENZAMIDE HCL 200MG/2ML INJ IM PRN (17:02)
[2023-07-29] MEDS: ACETAMINOPHEN 1000 MG/100 ML BAG IVPB SCH (21:36)
[2023-07-29] MEDS ORDERED: INSULIN (LEVEMIR) 100 UNITS/ML UNITS SQ SCH (22:00)
[2023-07-29 23:16] VITALS: RESP 18
[2023-07-30] MEDS: FUROSEMIDE 40 MG TABLET (FP) PO SCH ×2 (05:29→13:24)
[2023-07-30] MEDS: ACETAMINOPHEN 1000 MG/100 ML BAG IVPB SCH ×2 (05:33→10:21)
[2023-07-30] MEDS ORDERED: FUROSEMIDE 40 MG/4 ML INJECTABLE VIAL IVPUSH SCH (06:00)
[2023-07-30] MEDS ORDERED: FUROSEMIDE 40 MG TABLET (FP) PO SCH (06:00)
[2023-07-30] MEDS: INSULIN ASPART SLIDING SCALE (NOVOLOG) 1 VIAL SQ SCH ×2 (06:03→10:42)
[2023-07-30 08:48] VITALS: BP 119/60; PULSE 80; TEMP 97.7
[2023-07-30] MEDS ORDERED: PANTOPRAZOLE 40 MG TABLET PO SCH (10:00)
[2023-07-30] MEDS ORDERED: metoPROLOL SUCCINATE 25 MG TAB.SR.24H (FP) PO SCH (10:00)
[2023-07-30] MEDS: SACUBITRIL/VALSARTAN 24 MG-26 MG TABLET PO SCH (10:16)
== END 2023-07-30 14:00 | disposition home or self-care (01) | DRG 264 ==
LOC: JER 07:27 → JERBED 10:53 → J6S 19:26
PROVIDERS: ADMIT Internal Medicine; ATTEND Internal Medicine
PROC: 0TB13ZX Excision of Left Kidney, Percutaneous Approach, Diagnostic (ICD-10-PCS; 2023-07-26)
PROC: 07BJ0ZX Excision of Left Inguinal Lymphatic, Open Approach, Diagnostic (ICD-10-PCS; principal; 2023-07-29 14:30)
DX: I50.23 Acute on chronic systolic (congestive) heart failure (principal); J18.9 Pneumonia, unspecified organism; L03.116 Cellulitis of left lower limb; E87.70 Fluid overload, unspecified; R59.1 Generalized enlarged lymph nodes; D55.0 Anemia due to glucose-6-phosphate dehydrogenase [G6PD] deficiency; E11.621 Type 2 diabetes mellitus with foot ulcer; L97.529 Non-pressure chronic ulcer of other part of left foot with unspecified severity; R80.9 Proteinuria, unspecified
CPT/HCPCS: 0241U-QW; 36415; 50200; 71046-TC-FY; 76775-TC; 76942-TC; 78452-TC; 80053; 80076; 81003; 82570; 82962; 83010; 83036; 83516; 83520; 83615; 83880; 84155; 84156; 84165; 84484; 85025; 85027; 85610; 85730; 86038; 86160; 86225; 86256; 86850; 86880; 86900; 86901; 87086; 88300-TC; 88307-TC; 88329; 93005; 93010; 93017; 93306-TC; 94010; 94760; 99285-25; A9502; J2785

== ENCOUNTER 2023-09-27 07:36 | Inpatient (IN) | payer BC ==
[2023-09-27] MEDS ORDERED: ACETAMINOPHEN INJECTION 100 ML IVPB ONE (09:29)
[2023-09-27] MEDS ORDERED: FUROSEMIDE 40 MG/4 ML INJECTABLE VIAL ONE (09:29)
[2023-09-27] MEDS: ACETAMINOPHEN 1000 MG/100 ML BAG IVPB ONE (09:33)
[2023-09-27] MEDS: FUROSEMIDE 40 MG/4 ML INJECTABLE VIAL IVPUSH ONE (09:43)
[2023-09-27] MEDS ORDERED: CEFEPIME HCL 2 GM VIAL (RESTRICTED TO ID) IVPB ONE (09:45)
[2023-09-27 09:48] LABS: INR 1.31 (0.83-1.09); PROTHROMBIN TIME (PATIENT) 15.1 SEC (9.7-13.0)
[2023-09-27] MEDS: VANCOMYCIN 1,000 MG in DEXTROSE 5%-WATER - 250 ML IVPB ONE (09:48)
[2023-09-27 09:49] LABS: BASO % 0.9 % (0-2.0); EOS % 0.6 % (0-4.5); HEMATOCRIT 19.3 % (35.4-49); MCH 28.1 pg (25.7-33.7); MCHC 35.9 g/dl (32.0-35.9); MEAN CELL VOLUME 78.3 fl (80-96); MEAN PLT VOLUME 7.8 fl (7.5-11.1); MONO % 6.8 % (3.8-10.2); NEUT % 82.7 % (42.8-82.8); PLATELET COUNT 216 10^3/uL (134-434); RBC 2.46 M/mm3 (4.00-5.60); RDW 20.7 % (11.9-15.9)
[2023-09-27 09:51] LABS: ACTIVATED PTT 33.4 SECONDS (25.2-36.5)
[2023-09-27 09:58] LABS: HEMOGLOBIN 6.9 GM/dL (11.7-16.9)
[2023-09-27 10:05] LABS: POTASSIUM 4.5 mmol/L (3.5-5.1)
[2023-09-27 10:06] LABS: MAGNESIUM 2.1 mg/dL (1.8-2.4)
[2023-09-27 10:07] LABS: ALBUMIN 2.8 g/dl (3.4-5.0); BLOOD UREA NITROGEN 26.7 mg/dL (7-18); CALCIUM 8.7 mg/dL (8.5-10.1)
[2023-09-27 10:10] LABS: CREATININE 1.2 mg/dL (0.55-1.3)
[2023-09-27 10:12] LABS: BILIRUBIN,TOTAL 2.1 mg/dL (0.2-1); TOT PROT 6.5 g/dl (6.4-8.2)
[2023-09-27 10:14] LABS: N-TERMINAL BNP 7800.4 pg/ml (5-125)
[2023-09-27 10:31] LABS: ANISOCYTOSIS 2+; MACROCYTOSIS 1+
[2023-09-27 10:42] LABS: ERYTHROCYTE SEDIMENTATION RATE 119 mm/hr (0-20)
[2023-09-27 16:11] LABS: BASO % 0.6 % (0-2.0); HEMATOCRIT 17.2 % (35.4-49); LYMPH % 13.2 % (8-40); MCH 28.5 pg (25.7-33.7); MCHC 36.2 g/dl (32.0-35.9); MEAN CELL VOLUME 78.7 fl (80-96); MEAN PLT VOLUME 7.1 fl (7.5-11.1); MONO % 6.9 % (3.8-10.2); NEUT % 78.3 % (42.8-82.8); PLATELET COUNT 162 10^3/uL (134-434); RBC 2.19 M/mm3 (4.00-5.60); RDW 20.3 % (11.9-15.9); WHITE BLOOD COUNT 7.8 K/mm3 (4.0-10.0)
[2023-09-27 16:31] LABS: HEMOGLOBIN 6.2 GM/dL (11.7-16.9)
[2023-09-27] MEDS: ACETAMINOPHEN 325 MG TABLET (FP) PO PRN (21:41)
[2023-09-27] MEDS: INSULIN (LEVEMIR) 100 UNITS/ML UNITS SQ SCH (21:43)
[2023-09-27] MEDS: SACUBITRIL/VALSARTAN 24 MG-26 MG TABLET PO SCH (21:43)
[2023-09-27] MEDS: oxyCODONE HCL 5 MG TABLET PO PRN (21:43)
[2023-09-27] MEDS ORDERED: HEPARIN NA (PORCINE) 5,000 UNITS/ML 1ML VIAL SQ SCH (22:00)
[2023-09-28 00:56] VITALS: BMI 26.6
[2023-09-28 06:55] LABS: BASO % 1.1 % (0-2.0); EOS % 1.4 % (0-4.5); HEMATOCRIT 23.1 % (35.4-49); HEMOGLOBIN 8.5 GM/dL (11.7-16.9); LYMPH % 14.9 % (8-40); MCH 29.3 pg (25.7-33.7); MEAN CELL VOLUME 79.4 fl (80-96); MEAN PLT VOLUME 7.8 fl (7.5-11.1); NEUT % 75.6 % (42.8-82.8); PLATELET COUNT 158 10^3/uL (134-434); RBC 2.91 M/mm3 (4.00-5.60); RDW 18.8 % (11.9-15.9); WHITE BLOOD COUNT 7.7 K/mm3 (4.0-10.0)
[2023-09-28 07:10] LABS: POTASSIUM 4.2 mmol/L (3.5-5.1)
[2023-09-28 07:11] LABS: CALCIUM 7.7 mg/dL (8.5-10.1)
[2023-09-28 07:12] LABS: ALBUMIN 2.4 g/dl (3.4-5.0); BLOOD UREA NITROGEN 28.2 mg/dL (7-18); MAGNESIUM 2.1 mg/dL (1.8-2.4)
[2023-09-28 07:15] LABS: CREATININE 1.1 mg/dL (0.55-1.3)
[2023-09-28 07:17] LABS: BILIRUBIN,TOTAL 1.8 mg/dL (0.2-1); TOT PROT 5.4 g/dl (6.4-8.2)
[2023-09-28] MEDS: FUROSEMIDE 40 MG/4 ML INJECTABLE VIAL IVPUSH SCH ×2 (09:15→17:45)
[2023-09-28] MEDS: metoPROLOL SUCCINATE 25 MG TAB.SR.24H (FP) PO SCH (09:15)
[2023-09-29 07:21] LABS: BASO % 0.7 % (0-2.0); EOS % 1.7 % (0-4.5); HEMATOCRIT 23.6 % (35.4-49); HEMOGLOBIN 8.6 GM/dL (11.7-16.9); LYMPH % 9.9 % (8-40); MCH 28.7 pg (25.7-33.7); MCHC 36.7 g/dl (32.0-35.9); MEAN CELL VOLUME 78.3 fl (80-96); MONO % 6.8 % (3.8-10.2); NEUT % 80.9 % (42.8-82.8); PLATELET COUNT 177 10^3/uL (134-434); RBC 3.01 M/mm3 (4.00-5.60); RDW 19.4 % (11.9-15.9); WHITE BLOOD COUNT 8.9 K/mm3 (4.0-10.0)
[2023-09-29 07:37] LABS: POTASSIUM 3.9 mmol/L (3.5-5.1)
[2023-09-29 07:39] LABS: ALBUMIN 2.2 g/dl (3.4-5.0); BLOOD UREA NITROGEN 30.3 mg/dL (7-18); CALCIUM 7.7 mg/dL (8.5-10.1)
[2023-09-29 07:43] LABS: CREATININE 1.1 mg/dL (0.55-1.3)
[2023-09-29 07:44] LABS: BILIRUBIN,TOTAL 1.9 mg/dL (0.2-1); TOT PROT 5.1 g/dl (6.4-8.2)
[2023-09-29] MEDS ORDERED: BUPIVACAINE HCL/PF 0.5% (5MG/ML) 10 ML VIAL ONE ×2 (07:48→11:05)
[2023-09-29] MEDS ORDERED: LIDOCAINE HCL 2% (20ML MULTI-DOSE VIAL) ONE ×2 (07:48→11:06)
[2023-09-29] MEDS ORDERED: ALBUTEROL SO4 2.5/IPRATROPIUM 0.5 INH SOL 3 ML VIAL.NEB. NEB PRN (10:35)
[2023-09-29] MEDS: ALBUTEROL SO4 2.5/IPRATROPIUM 0.5 INH SOL 3 ML VIAL.NEB. NEB ONE (10:54)
[2023-09-29] MEDS ORDERED: MIDAZOLAM HCL 2 MG/2 ML SINGLE DOSE VIAL ONE (11:25)
[2023-09-29] MEDS: LIDOCAINE HCL 2% (50ML VIAL) INF ONE (11:36)
[2023-09-29] MEDS: BUPIVACAINE HCL/PF 0.5% (5MG/ML) 10 ML VIAL IJ ONE ×2 (12:02)
[2023-09-29] MEDS ORDERED: ONDANSETRON 4 MG/2 ML VIAL IVPUSH PRN (12:15)
[2023-09-29] MEDS: LACTATED RINGERS SOLUTION 1,000 ML IV SCH (12:15)
[2023-09-29] MEDS: CEFTRIAXONE 2 GM in DEXTROSE 5%-WATER 100 ML IVPB SCH (16:00)
[2023-09-30] MEDS: ceFAZolin SODIUM 1 GM VIAL IVPB ONE
[2023-09-30] MEDS: INSULIN (LEVEMIR) 100 UNITS/ML UNITS SQ SCH ×2 (00:05→21:24)
[2023-09-30 07:21] LABS: BASO % 0.5 % (0-2.0); EOS % 1.5 % (0-4.5); HEMATOCRIT 20.9 % (35.4-49); HEMOGLOBIN 7.5 GM/dL (11.7-16.9); LYMPH % 7.8 % (8-40); MCHC 35.7 g/dl (32.0-35.9); MEAN CELL VOLUME 78.3 fl (80-96); MEAN PLT VOLUME 7.5 fl (7.5-11.1); MONO % 8.3 % (3.8-10.2); NEUT % 81.9 % (42.8-82.8); PLATELET COUNT 167 10^3/uL (134-434); RBC 2.67 M/mm3 (4.00-5.60); RDW 20.2 % (11.9-15.9); WHITE BLOOD COUNT 7.1 K/mm3 (4.0-10.0)
[2023-09-30 07:40] LABS: POTASSIUM 4.1 mmol/L (3.5-5.1)
[2023-09-30 07:42] LABS: CALCIUM 7.6 mg/dL (8.5-10.1)
[2023-09-30 07:46] LABS: CREATININE 1.2 mg/dL (0.55-1.3)
[2023-09-30 07:48] LABS: BILIRUBIN,TOTAL 1.2 mg/dL (0.2-1); TOT PROT 5.2 g/dl (6.4-8.2)
[2023-09-30] MEDS ORDERED: ONDANSETRON 4 MG/2 ML VIAL IVPUSH PRN ×2 (13:09→14:25)
[2023-09-30] MEDS ORDERED: PROPOFOL 20 ML ONE (13:13)
[2023-09-30] MEDS ORDERED: MIDAZOLAM HCL 2 MG/2 ML SINGLE DOSE VIAL ONE (13:13)
[2023-09-30] MEDS ORDERED: LACTATED RINGERS SOLUTION 1,000 ML IV SCH ×2 (13:15→14:25)
[2023-09-30] MEDS: IOHEXOL 300 MG/ML INFUS..BTL IV ONE ×3 (13:48)
[2023-09-30] MEDS: LIDOCAINE HCL 1%, 10 MG/ML (50 mL VIAL) INF ONE ×3 (13:48)
[2023-09-30] MEDS: LACTATED RINGERS SOLUTION 1,000 ML IV SCH (14:15)
[2023-09-30] MEDS ORDERED: ALBUTEROL SO4 2.5/IPRATROPIUM 0.5 INH SOL 3 ML VIAL.NEB. NEB PRN (14:25)
[2023-09-30] MEDS: FUROSEMIDE 40 MG/4 ML INJECTABLE VIAL IVPUSH SCH (17:18)
[2023-09-30] MEDS: oxyCODONE HCL 5 MG TABLET PO PRN (18:32)
[2023-09-30] MEDS: SACUBITRIL/VALSARTAN 24 MG-26 MG TABLET PO SCH (21:29)
[2023-10-01] MEDS: ACETAMINOPHEN 325 MG TABLET (FP) PO PRN (06:30)
[2023-10-01 07:24] LABS: EOS % 3.2 % (0-4.5); HEMATOCRIT 20.6 % (35.4-49); HEMOGLOBIN 7.3 GM/dL (11.7-16.9); LYMPH % 14.9 % (8-40); MCHC 35.5 g/dl (32.0-35.9); MEAN CELL VOLUME 78.8 fl (80-96); MEAN PLT VOLUME 7.8 fl (7.5-11.1); MONO % 8.4 % (3.8-10.2); NEUT % 72.5 % (42.8-82.8); PLATELET COUNT 178 10^3/uL (134-434); RBC 2.62 M/mm3 (4.00-5.60); RDW 20.5 % (11.9-15.9); WHITE BLOOD COUNT 5.5 K/mm3 (4.0-10.0)
[2023-10-01 08:13] LABS: POTASSIUM 4.4 mmol/L (3.5-5.1)
[2023-10-01 08:25] LABS: CALCIUM 8.2 mg/dL (8.5-10.1)
[2023-10-01 08:26] LABS: ALBUMIN 2.2 g/dl (3.4-5.0)
[2023-10-01 08:28] LABS: CREATININE 1.3 mg/dL (0.55-1.3)
[2023-10-01 08:29] LABS: BLOOD UREA NITROGEN 38.7 mg/dL (7-18)
[2023-10-01 08:30] LABS: TOT PROT 5.6 g/dl (6.4-8.2)
[2023-10-01 08:32] LABS: BILIRUBIN,TOTAL 1.3 mg/dL (0.2-1)
[2023-10-01 08:35] LABS: ANISOCYTOSIS 1+; MACROCYTOSIS 1+
[2023-10-01] MEDS: CEFTRIAXONE 2 GM in DEXTROSE 5%-WATER 100 ML IVPB SCH (09:05)
[2023-10-01] MEDS: metoPROLOL SUCCINATE 25 MG TAB.SR.24H (FP) PO SCH (10:32)
[2023-10-01 11:02] VITALS: RESP 18
[2023-10-01] MEDS: FUROSEMIDE 40 MG TABLET (FP) PO SCH (14:47)
[2023-10-01 17:35] VITALS: BP 129/77; PULSE 74; TEMP 97.7
== END 2023-10-01 16:10 | disposition home or self-care (01) | DRG 622 ==
LOC: JER 07:36 → JERBED 11:16 → J4W 21:28
PROVIDERS: ADMIT Internal Medicine; ATTEND Internal Medicine
PROC: 0QBP0Z2 Excision of Left Metatarsal, Sesamoid Bone(s) 1st Toe, Open Approach (ICD-10-PCS; 2023-09-29)
PROC: 0JBR0ZZ Excision of Left Foot Subcutaneous Tissue and Fascia, Open Approach (ICD-10-PCS; principal; 2023-09-29 11:00)
PROC: B41DZZZ Fluoroscopy of Aorta and Bilateral Lower Extremity Arteries (ICD-10-PCS; 2023-09-30)
PROC: B40GYZZ Plain Radiography of Left Lower Extremity Arteries using Other Contrast (ICD-10-PCS; 2023-09-30)
PROC: 02HV33Z Insertion of Infusion Device into Superior Vena Cava, Percutaneous Approach (ICD-10-PCS; 2023-10-01)
PROC: B518ZZA Fluoroscopy of Superior Vena Cava, Guidance (ICD-10-PCS; 2023-10-01)
DX: E11.621 Type 2 diabetes mellitus with foot ulcer (principal); I50.23 Acute on chronic systolic (congestive) heart failure; L97.528 Non-pressure chronic ulcer of other part of left foot with other specified severity; M86.172 Other acute osteomyelitis, left ankle and foot; E11.69 Type 2 diabetes mellitus with other specified complication; K57.90 Diverticulosis of intestine, part unspecified, without perforation or abscess without bleeding; K59.00 Constipation, unspecified; R80.9 Proteinuria, unspecified; D55.0 Anemia due to glucose-6-phosphate dehydrogenase [G6PD] deficiency; I11.0 Hypertensive heart disease with heart failure; B95.1 Streptococcus, group B, as the cause of diseases classified elsewhere; B96.1 Klebsiella pneumoniae [K. pneumoniae] as the cause of diseases classified elsewhere; B95.2 Enterococcus as the cause of diseases classified elsewhere; Z88.0 Allergy status to penicillin; Z89.422 Acquired absence of other left toe(s)
CPT/HCPCS: 0241U-QW; 36415; 36430; 36569; 71046-TC-FY; 73630-TC-LT; 76000-TC-FY; 80053; 82962; 83036; 83735; 83880; 84484; 85025; 85610; 85651; 85730; 86140; 86850; 86900; 86901; 86922; 87040; 87070; 87075; 87076; 87077; 87186; 87205; 88307-TC; 88311-TC; 93005; 93010; 93926-TC; 94640; 94760; 99285-25; C1897; J0131; P9038; P9058

== ENCOUNTER 2023-11-23 16:21 | Inpatient (IN) | payer BC ==
[2023-11-23] MEDS: ACETAMINOPHEN 1000 MG/100 ML BAG IVPB ONE (17:40)
[2023-11-23 17:45] LABS: BASO % 0.5 % (0-2.0); EOS % 0.5 % (0-4.5); HEMATOCRIT 19.6 % (35.4-49); LYMPH % 6.6 % (8-40); MCH 27.4 pg (25.7-33.7); MEAN CELL VOLUME 76.2 fl (80-96); MEAN PLT VOLUME 7.7 fl (7.5-11.1); MONO % 8.2 % (3.8-10.2); NEUT % 84.2 % (42.8-82.8); PLATELET COUNT 230 10^3/uL (134-434); RBC 2.57 M/mm3 (4.00-5.60); RDW 21.2 % (11.9-15.9); WHITE BLOOD COUNT 10.2 K/mm3 (4.0-10.0)
[2023-11-23 17:51] LABS: INR 1.34 (0.83-1.09); PROTHROMBIN TIME (PATIENT) 15.5 SEC (9.7-13.0)
[2023-11-23 17:54] LABS: ACTIVATED PTT 32.1 SECONDS (25.2-36.5)
[2023-11-23 18:04] LABS: CHLORIDE 99 mmol/L (98-107); POTASSIUM 4.4 mmol/L (3.5-5.1); SODIUM 131 mmol/L (136-145)
[2023-11-23 18:06] LABS: CALCIUM 8.2 mg/dL (8.5-10.1)
[2023-11-23 18:07] LABS: ALBUMIN 2.4 g/dl (3.4-5.0); ANION GAP 2 mmol/L (4-13); BLOOD UREA NITROGEN 47.1 mg/dL (7-18); CO2 31 mmol/L (21-32); MAGNESIUM 2.2 mg/dL (1.8-2.4)
[2023-11-23 18:10] LABS: CREATININE 1.5 mg/dL (0.55-1.3); SGOT/AST 100 U/L (15-37); SGPT/ALT 42 U/L (13-61)
[2023-11-23 18:11] LABS: ANISOCYTOSIS 2+; BILIRUBIN,TOTAL 2.6 mg/dL (0.2-1); MACROCYTOSIS 0; OVALOCYTE 1+; TARGET CELLS 1+
[2023-11-23 18:13] LABS: ALK PHOS 323 U/L (45-117)
[2023-11-23 18:20] LABS: GLUCOSE,RANDOM 427 mg/dL (74-106)
[2023-11-23 18:23] LABS: ERYTHROCYTE SEDIMENTATION RATE > 140 mm/hr (0-20)
[2023-11-23] MEDS ORDERED: INSULIN REGULAR HUMAN 100 UNITS/ML *VIAL ONE (18:40)
[2023-11-23] MEDS: INSULIN REGULAR HUMAN 100 UNITS/ML *VIAL SQ ONE (18:44)
[2023-11-23 20:16] LABS: N-TERMINAL BNP 13665.2 pg/ml (5-125)
[2023-11-23] MEDS ORDERED: oxyCODONE HCL 5 MG TABLET ONE (20:18)
[2023-11-23] MEDS: oxyCODONE HCL 5 MG TABLET PO ONE (20:20)
[2023-11-23] MEDS: CEFTRIAXONE 1 GM in DEXTROSE 5%-WATER - 100 ML IVPB ONE (21:41)
[2023-11-23] MEDS ORDERED: CEFTRIAXONE 1 GM/50 ML BAG ONE (21:42)
[2023-11-23] MEDS: VANCOMYCIN 1,000 MG in DEXTROSE 5%-WATER - 250 ML IVPB ONE (22:55)
[2023-11-23] MEDS ORDERED: VANCOMYCIN 1 GRAM (PRE-DOCKED) 1,000 MG/250 ML BAG IVPB ONE (22:56)
[2023-11-24] MEDS: SACUBITRIL/VALSARTAN 24 MG-26 MG TABLET PO SCH (00:09)
[2023-11-24] MEDS: oxyCODONE HCL 5 MG TABLET PO PRN ×2 (00:13→16:31)
[2023-11-24] MEDS ORDERED: oxyCODONE HCL 5 MG TABLET ONE (00:13)
[2023-11-24] MEDS ORDERED: oxyCODONE HCL 5 MG TABLET PO PRN (02:00)
[2023-11-24] MEDS: ONDANSETRON 4 MG/2 ML VIAL IVPUSH ONE (02:14)
[2023-11-24] MEDS: diphenhydrAMINE HCL 25 MG CAPSULE (FP) PO ONE (05:24)
[2023-11-24] MEDS: TRIMETHOBENZAMIDE HCL 200MG/2ML INJ IM ONE (05:59)
[2023-11-24] MEDS: INSULIN ASPART SLIDING SCALE (NOVOLOG) 1 VIAL SQ SCH (06:44)
[2023-11-24] MEDS: metoPROLOL SUCCINATE 25 MG TAB.SR.24H (FP) PO SCH (09:11)
[2023-11-24 09:57] LABS: BASO % 0.7 % (0-2.0); EOS % 0.8 % (0-4.5); HEMATOCRIT 20.9 % (35.4-49); HEMOGLOBIN 7.3 GM/dL (11.7-16.9); LYMPH % 7.3 % (8-40); MCH 26.7 pg (25.7-33.7); MCHC 35.1 g/dl (32.0-35.9); MEAN PLT VOLUME 7.7 fl (7.5-11.1); MONO % 7.6 % (3.8-10.2); NEUT % 83.6 % (42.8-82.8); PLATELET COUNT 251 10^3/uL (134-434); RBC 2.74 M/mm3 (4.00-5.60); RDW 21.2 % (11.9-15.9); WHITE BLOOD COUNT 11.1 K/mm3 (4.0-10.0)
[2023-11-24] MEDS ORDERED: CEFTRIAXONE 2 GM-D5W BAG 2 GM/50 ML BAG IVPB SCH (10:00)
[2023-11-24 10:09] LABS: POTASSIUM 4.3 mmol/L (3.5-5.1)
[2023-11-24] MEDS: CEFTRIAXONE 2 GM in DEXTROSE 5%-WATER 100 ML IVPB SCH (10:12)
[2023-11-24] MEDS: DOCUSATE SODIUM 100 MG CAPSULE (FP) PO SCH (10:12)
[2023-11-24 10:20] LABS: CALCIUM 8.5 mg/dL (8.5-10.1)
[2023-11-24 10:21] LABS: BLOOD UREA NITROGEN 40.9 mg/dL (7-18)
[2023-11-24 10:24] LABS: CREATININE 1.3 mg/dL (0.55-1.3)
[2023-11-24] MEDS: FUROSEMIDE 40 MG/4 ML INJECTABLE VIAL IVPUSH SCH (11:06)
[2023-11-24 12:09] VITALS: BMI 28.5
[2023-11-24] MEDS: VANCOMYCIN/WATER FOR INJ (PEG) 1,000 MG/200 ML BAG IVPB SCH (13:43)
[2023-11-24] MEDS: VANCOMYCIN 1,000 MG in DEXTROSE 5%-WATER - 250 ML IVPB SCH (15:02)
[2023-11-24] MEDS: ACETAMINOPHEN 325 MG TABLET (FP) PO PRN (16:37)
[2023-11-24] MEDS: CEFEPIME 1 GM in DEXTROSE 5%-WATER 100 ML IVPB SCH (21:58)
[2023-11-24] MEDS: INSULIN (LEVEMIR) 100 UNITS/ML UNITS SQ SCH (22:06)
[2023-11-25] MEDS: VANCOMYCIN/WATER FOR INJ (PEG) 1,000 MG/200 ML BAG IVPB SCH (01:40)
[2023-11-25 07:52] LABS: EPI CELLS 4 /uL (0-25.1); HYALINE CASTS 1 /uL (0-3.1); URINE APPEARANCE CLEAR; URINE BACTERIA 12 /uL (0-1359); URINE BILIRUBIN NEGATIVE (NEGATIVE); URINE COLOR DK YELLOW; URINE GLUCOSE (UA) TRACE (NEGATIVE); URINE KETONE NEGATIVE (NEGATIVE); URINE LEUK ESTERASE NEGATIVE (NEGATIVE); URINE NITRITE NEGATIVE (NEGATIVE); URINE PROTEIN 3+ (NEGATIVE); URINE RBC 127 /uL (0-23.9); URINE WBC 15 /uL (0-25.8)
[2023-11-25 08:36] LABS: POTASSIUM 4.1 mmol/L (3.5-5.1)
[2023-11-25 08:43] LABS: CALCIUM 7.8 mg/dL (8.5-10.1)
[2023-11-25 08:44] LABS: BLOOD UREA NITROGEN 39.8 mg/dL (7-18)
[2023-11-25 08:47] LABS: CREATININE 1.3 mg/dL (0.55-1.3)
[2023-11-25 08:48] LABS: BILIRUBIN,TOTAL 1.7 mg/dL (0.2-1)
[2023-11-25 08:49] LABS: TOT PROT 5.3 g/dl (6.4-8.2)
[2023-11-25 08:51] LABS: BASO % 0.8 % (0-2.0); EOS % 0.9 % (0-4.5); HEMATOCRIT 19.1 % (35.4-49); LYMPH % 6.4 % (8-40); MCH 27.1 pg (25.7-33.7); MCHC 36.2 g/dl (32.0-35.9); MEAN PLT VOLUME 7.6 fl (7.5-11.1); MONO % 8.4 % (3.8-10.2); NEUT % 83.5 % (42.8-82.8); PLATELET COUNT 234 10^3/uL (134-434); RBC 2.55 M/mm3 (4.00-5.60); RDW 20.7 % (11.9-15.9); WHITE BLOOD COUNT 10.4 K/mm3 (4.0-10.0)
[2023-11-25 08:55] LABS: ALBUMIN 1.9 g/dl (3.4-5.0)
[2023-11-25 08:59] LABS: HEMOGLOBIN 6.9 GM/dL (11.7-16.9)
[2023-11-25] MEDS: DOCUSATE SODIUM 100 MG CAPSULE (FP) PO SCH (14:54)
[2023-11-25] MEDS: POLYETHYLENE GLYCOL (HEALTHYLAX) 3350 17 GM PACKET PO SCH (14:54)
[2023-11-25] MEDS: oxyCODONE HCL 5 MG TABLET PO PRN (14:55)
[2023-11-25 15:55] LABS: POTASSIUM 4.3 mmol/L (3.5-5.1)
[2023-11-25 15:57] LABS: CALCIUM 7.7 mg/dL (8.5-10.1)
[2023-11-25 15:58] LABS: BLOOD UREA NITROGEN 41.9 mg/dL (7-18)
[2023-11-25 16:01] LABS: CREATININE 1.4 mg/dL (0.55-1.3)
[2023-11-25 16:02] LABS: BILIRUBIN,TOTAL 2.5 mg/dL (0.2-1); TOT PROT 5.4 g/dl (6.4-8.2)
[2023-11-25] MEDS: SERTRALINE HCL 25 MG TABLET (FP) PO SCH (19:17)
[2023-11-26] MEDS: POLYETHYLENE GLYCOL (HEALTHYLAX) 3350 17 GM PACKET PO SCH (10:15)
[2023-11-26 10:59] LABS: BASO % 0.6 % (0-2.0); EOS % 0.8 % (0-4.5); HEMATOCRIT 23.8 % (35.4-49); HEMOGLOBIN 8.4 GM/dL (11.7-16.9); LYMPH % 4.8 % (8-40); MCH 26.6 pg (25.7-33.7); MCHC 35.2 g/dl (32.0-35.9); MEAN CELL VOLUME 75.7 fl (80-96); MEAN PLT VOLUME 7.4 fl (7.5-11.1); MONO % 8.2 % (3.8-10.2); NEUT % 85.6 % (42.8-82.8); PLATELET COUNT 276 10^3/uL (134-434); RBC 3.15 M/mm3 (4.00-5.60); WHITE BLOOD COUNT 14.2 K/mm3 (4.0-10.0)
[2023-11-26] MEDS: VANCOMYCIN/WATER 1250 MG 1,250 MG/250 ML BAG IVPB SCH (16:38)
[2023-11-26] MEDS: CEFEPIME 1 GM in DEXTROSE 5%-WATER 100 ML IVPB SCH (23:02)
[2023-11-27 08:19] LABS: BASO % 0.3 % (0-2.0); EOS % 0.8 % (0-4.5); HEMATOCRIT 22.1 % (35.4-49); HEMOGLOBIN 7.6 GM/dL (11.7-16.9); LYMPH % 6.1 % (8-40); MCH 26.1 pg (25.7-33.7); MCHC 34.4 g/dl (32.0-35.9); MEAN CELL VOLUME 75.9 fl (80-96); MEAN PLT VOLUME 7.4 fl (7.5-11.1); MONO % 8.9 % (3.8-10.2); NEUT % 83.9 % (42.8-82.8); PLATELET COUNT 296 10^3/uL (134-434); RBC 2.91 M/mm3 (4.00-5.60); RDW 20.8 % (11.9-15.9); WHITE BLOOD COUNT 16.4 K/mm3 (4.0-10.0)
[2023-11-27 09:23] LABS: ANISOCYTOSIS 2+; MACROCYTOSIS 0
[2023-11-27] MEDS: SERTRALINE HCL 25 MG TABLET (FP) PO SCH (12:08)
[2023-11-27] MEDS: LIDOCAINE HCL 1%, 10 MG/ML (20ML VIAL) ID ONE (14:58)
[2023-11-27] MEDS: BISACODYL 5 MG TABLET.DR (FP) PO ONE (17:28)
[2023-11-27] MEDS: FUROSEMIDE 40 MG/4 ML INJECTABLE VIAL IVPUSH SCH (17:29)
[2023-11-27] MEDS: ACETAMINOPHEN 325 MG TABLET (FP) PO PRN (17:30)
[2023-11-27] MEDS: SENNOSIDES 8.6MG TABLET (FP) PO PRN (21:55)
[2023-11-27] MEDS: POLYETHYLENE GLYCOL (HEALTHYLAX) 3350 17 GM PACKET PO SCH (21:56)
[2023-11-27] MEDS: INSULIN (LEVEMIR) 100 UNITS/ML UNITS SQ SCH (21:56)
[2023-11-28] MEDS: FUROSEMIDE 40 MG TABLET (FP) PO ONE (06:33)
[2023-11-28 09:23] LABS: BASO % 0.8 % (0-2.0); EOS % 1.3 % (0-4.5); HEMATOCRIT 20.3 % (35.4-49); HEMOGLOBIN 7.2 GM/dL (11.7-16.9); LYMPH % 6.7 % (8-40); MCH 26.8 pg (25.7-33.7); MCHC 35.5 g/dl (32.0-35.9); MEAN CELL VOLUME 75.5 fl (80-96); MEAN PLT VOLUME 7.4 fl (7.5-11.1); MONO % 8.4 % (3.8-10.2); NEUT % 82.8 % (42.8-82.8); PLATELET COUNT 298 10^3/uL (134-434); RBC 2.68 M/mm3 (4.00-5.60); WHITE BLOOD COUNT 14.9 K/mm3 (4.0-10.0)
[2023-11-28 10:00] LABS: POTASSIUM 4.2 mmol/L (3.5-5.1)
[2023-11-28 10:44] LABS: ALBUMIN 2.1 g/dl (3.4-5.0)
[2023-11-28 10:46] LABS: BLOOD UREA NITROGEN 57.6 mg/dL (7-18)
[2023-11-28 10:47] LABS: CREATININE 1.6 mg/dL (0.55-1.3)
[2023-11-28 10:49] LABS: BILIRUBIN,TOTAL 2.4 mg/dL (0.2-1); TOT PROT 6.5 g/dl (6.4-8.2)
[2023-11-28] MEDS: SERTRALINE HCL 25 MG TABLET (FP) PO SCH (10:55)
[2023-11-28] MEDS: TORSEMIDE 100 MG TABLET PO SCH (10:55)
[2023-11-28 10:59] LABS: CALCIUM 8.2 mg/dL (8.5-10.1)
[2023-11-28] MEDS: BISACODYL 5 MG TABLET.DR (FP) PO ONE (11:35)
[2023-11-29 08:42] LABS: BASO % 0.7 % (0-2.0); EOS % 1.3 % (0-4.5); HEMATOCRIT 16.5 % (35.4-49); LYMPH % 7.1 % (8-40); MCH 26.2 pg (25.7-33.7); MEAN CELL VOLUME 74.9 fl (80-96); MEAN PLT VOLUME 7.3 fl (7.5-11.1); MONO % 8.2 % (3.8-10.2); NEUT % 82.7 % (42.8-82.8); PLATELET COUNT 267 10^3/uL (134-434); RDW 21.5 % (11.9-15.9); WHITE BLOOD COUNT 13.5 K/mm3 (4.0-10.0)
[2023-11-29 08:46] LABS: POTASSIUM 4.2 mmol/L (3.5-5.1)
[2023-11-29 08:51] LABS: HEMOGLOBIN 5.8 GM/dL (11.7-16.9)
[2023-11-29 09:05] LABS: ALBUMIN 1.8 g/dl (3.4-5.0); BLOOD UREA NITROGEN 60.4 mg/dL (7-18)
[2023-11-29 09:06] LABS: BILIRUBIN,TOTAL 2.1 mg/dL (0.2-1); CALCIUM 7.9 mg/dL (8.5-10.1); TOT PROT 5.8 g/dl (6.4-8.2)
[2023-11-29 09:08] LABS: CREATININE 1.6 mg/dL (0.55-1.3)
[2023-11-29 09:56] LABS: BASO % 1.2 % (0-2.0); EOS % 1.4 % (0-4.5); HEMATOCRIT 17.9 % (35.4-49); LYMPH % 7.9 % (8-40); MCHC 34.4 g/dl (32.0-35.9); MEAN CELL VOLUME 75.5 fl (80-96); MEAN PLT VOLUME 7.3 fl (7.5-11.1); NEUT % 81.5 % (42.8-82.8); PLATELET COUNT 264 10^3/uL (134-434); RBC 2.37 M/mm3 (4.00-5.60); RDW 21.7 % (11.9-15.9); WHITE BLOOD COUNT 13.2 K/mm3 (4.0-10.0)
[2023-11-29 10:00] LABS: HEMOGLOBIN 6.2 GM/dL (11.7-16.9)
[2023-11-29] MEDS ORDERED: FUROSEMIDE 40 MG/4 ML INJECTABLE VIAL IVPUSH ONE (11:22)
[2023-11-29] MEDS: DAPTOMYCIN 900 MG in SODIUM CHLORIDE 100 ML IVPB SCH (14:09)
[2023-11-29] MEDS: FUROSEMIDE 40 MG/4 ML INJECTABLE VIAL IVPUSH ONE (20:38)
[2023-11-30 09:34] LABS: BASO % 0.7 % (0-2.0); EOS % 1.2 % (0-4.5); HEMATOCRIT 20.7 % (35.4-49); HEMOGLOBIN 7.3 GM/dL (11.7-16.9); LYMPH % 6.8 % (8-40); MCH 27.4 pg (25.7-33.7); MCHC 35.4 g/dl (32.0-35.9); MEAN CELL VOLUME 77.6 fl (80-96); MEAN PLT VOLUME 7.5 fl (7.5-11.1); MONO % 7.8 % (3.8-10.2); NEUT % 83.5 % (42.8-82.8); PLATELET COUNT 256 10^3/uL (134-434); RBC 2.67 M/mm3 (4.00-5.60); RDW 20.3 % (11.9-15.9); WHITE BLOOD COUNT 12.8 K/mm3 (4.0-10.0)
[2023-11-30 09:56] LABS: POTASSIUM 4.4 mmol/L (3.5-5.1)
[2023-11-30 10:04] LABS: ALBUMIN 1.9 g/dl (3.4-5.0); BLOOD UREA NITROGEN 60.6 mg/dL (7-18)
[2023-11-30 10:07] LABS: CREATININE 1.7 mg/dL (0.55-1.3)
[2023-11-30 10:08] LABS: BILIRUBIN,TOTAL 2.6 mg/dL (0.2-1)
[2023-11-30 10:09] LABS: TOT PROT 6.4 g/dl (6.4-8.2)
[2023-11-30] MEDS ORDERED: LIDOCAINE HCL 2% (20ML MULTI-DOSE VIAL) ONE (13:31)
[2023-11-30] MEDS ORDERED: VANCOMYCIN 1,000 MG VIAL (RESTRICTED TO ID ONLY) ONE (14:02)
[2023-11-30] MEDS ORDERED: FENTANYL CITRATE/PF 50 MCG/ML VIAL ONE (14:36)
[2023-11-30] MEDS ORDERED: MIDAZOLAM HCL 2 MG/2 ML SINGLE DOSE VIAL ONE (14:36)
[2023-11-30] MEDS ORDERED: SODIUM CHLORIDE 0.9% P/F 10 ML VIAL IJ ONE (14:58)
[2023-11-30] MEDS ORDERED: ONDANSETRON 4 MG/2 ML VIAL ONE (14:59)
[2023-11-30] MEDS: LIDOCAINE HCL 2% (50ML VIAL) INF ONE (15:04)
[2023-11-30] MEDS ORDERED: SENNOSIDES 8.6MG TABLET (FP) PO PRN (16:28)
[2023-11-30] MEDS: INSULIN ASPART SLIDING SCALE (NOVOLOG) 1 VIAL SQ SCH (17:44)
[2023-11-30] MEDS: oxyCODONE HCL 5 MG TABLET PO PRN (17:57)
[2023-11-30] MEDS: INSULIN (LEVEMIR) 100 UNITS/ML UNITS SQ SCH (21:30)
[2023-11-30] MEDS: CEFEPIME 1 GM in DEXTROSE 5%-WATER 100 ML IVPB SCH (21:31)
[2023-11-30] MEDS: SACUBITRIL/VALSARTAN 24 MG-26 MG TABLET PO SCH (21:31)
[2023-12-01] MEDS: POLYETHYLENE GLYCOL (HEALTHYLAX) 3350 17 GM PACKET PO SCH (03:04)
[2023-12-01] MEDS: DOCUSATE SODIUM 100 MG CAPSULE (FP) PO SCH (03:04)
[2023-12-01 07:55] LABS: POTASSIUM 4.1 mmol/L (3.5-5.1)
[2023-12-01 08:01] LABS: CALCIUM 8.2 mg/dL (8.5-10.1)
[2023-12-01 08:02] LABS: ALBUMIN 1.9 g/dl (3.4-5.0); BLOOD UREA NITROGEN 56.8 mg/dL (7-18)
[2023-12-01 08:05] LABS: CREATININE 1.5 mg/dL (0.55-1.3)
[2023-12-01 08:06] LABS: BILIRUBIN,TOTAL 2.2 mg/dL (0.2-1)
[2023-12-01 08:07] LABS: TOT PROT 6.7 g/dl (6.4-8.2)
[2023-12-01] MEDS: TORSEMIDE 100 MG TABLET PO SCH (11:14)
[2023-12-01] MEDS: metoPROLOL SUCCINATE 25 MG TAB.SR.24H (FP) PO SCH (11:15)
[2023-12-01] MEDS: SERTRALINE HCL 25 MG TABLET (FP) PO SCH (11:15)
[2023-12-01] MEDS: DAPTOMYCIN 900 MG in SODIUM CHLORIDE 100 ML IVPB SCH (12:04)
[2023-12-02 09:19] LABS: EOS % 2.1 % (0-4.5); HEMATOCRIT 26.9 % (35.4-49); HEMOGLOBIN 9.3 GM/dL (11.7-16.9); LYMPH % 13.8 % (8-40); MCH 27.1 pg (25.7-33.7); MCHC 34.6 g/dl (32.0-35.9); MEAN CELL VOLUME 78.3 fl (80-96); MEAN PLT VOLUME 7.2 fl (7.5-11.1); MONO % 6.5 % (3.8-10.2); NEUT % 76.6 % (42.8-82.8); PLATELET COUNT 287 10^3/uL (134-434); RBC 3.43 M/mm3 (4.00-5.60); RDW 21.1 % (11.9-15.9); WHITE BLOOD COUNT 9.7 K/mm3 (4.0-10.0)
[2023-12-02 09:38] LABS: ANISOCYTOSIS 3+; MACROCYTOSIS 0
[2023-12-02 09:46] LABS: POTASSIUM 4.5 mmol/L (3.5-5.1)
[2023-12-02 09:53] LABS: CALCIUM 8.8 mg/dL (8.5-10.1)
[2023-12-02 09:57] LABS: CREATININE 1.2 mg/dL (0.55-1.3)
[2023-12-02 10:01] LABS: BILIRUBIN,TOTAL 2.1 mg/dL (0.2-1)
[2023-12-02] MEDS: ACETAMINOPHEN 325 MG TABLET (FP) PO PRN (18:31)
[2023-12-02] MEDS: ONDANSETRON 4 MG/2 ML VIAL IVPUSH ONE (19:49)
[2023-12-03 08:29] LABS: BASO % 1.1 % (0-2.0); EOS % 1.4 % (0-4.5); HEMATOCRIT 34.6 % (35.4-49); HEMOGLOBIN 11.8 GM/dL (11.7-16.9); LYMPH % 11.2 % (8-40); MCH 26.6 pg (25.7-33.7); MCHC 34.2 g/dl (32.0-35.9); MEAN CELL VOLUME 77.7 fl (80-96); MEAN PLT VOLUME 7.3 fl (7.5-11.1); MONO % 5.9 % (3.8-10.2); NEUT % 80.4 % (42.8-82.8); PLATELET COUNT 379 10^3/uL (134-434); RBC 4.46 M/mm3 (4.00-5.60); RDW 22.5 % (11.9-15.9); WHITE BLOOD COUNT 15.6 K/mm3 (4.0-10.0)
[2023-12-03 08:44] LABS: POTASSIUM 4.1 mmol/L (3.5-5.1)
[2023-12-03 08:48] LABS: ALBUMIN 2.5 g/dl (3.4-5.0); BLOOD UREA NITROGEN 50.1 mg/dL (7-18)
[2023-12-03 08:51] LABS: CREATININE 1.5 mg/dL (0.55-1.3)
[2023-12-03 08:53] LABS: BILIRUBIN,TOTAL 2.6 mg/dL (0.2-1); TOT PROT 8.3 g/dl (6.4-8.2)
[2023-12-03] MEDS: COLLAGENASE CLOSTRIDIUM HIST. 30 GRAMS TUBE TP SCH (12:19)
[2023-12-03] MEDS ORDERED: metroNIDAZOLE 500 MG TABLET PO SCH (22:00)
[2023-12-03] MEDS: metroNIDAZOLE 250 MG TABLET PO SCH (22:10)
[2023-12-05 09:14] LABS: BASO % 0.9 % (0-2.0); EOS % 1.3 % (0-4.5); HEMATOCRIT 24.9 % (35.4-49); HEMOGLOBIN 8.8 GM/dL (11.7-16.9); MCH 27.7 pg (25.7-33.7); MCHC 35.2 g/dl (32.0-35.9); MEAN CELL VOLUME 78.8 fl (80-96); MEAN PLT VOLUME 7.1 fl (7.5-11.1); MONO % 7.1 % (3.8-10.2); NEUT % 76.7 % (42.8-82.8); PLATELET COUNT 248 10^3/uL (134-434); RBC 3.16 M/mm3 (4.00-5.60); RDW 22.1 % (11.9-15.9); WHITE BLOOD COUNT 8.7 K/mm3 (4.0-10.0)
[2023-12-05 09:42] LABS: POTASSIUM 4.7 mmol/L (3.5-5.1)
[2023-12-05 09:46] LABS: ALBUMIN 2.2 g/dl (3.4-5.0); BLOOD UREA NITROGEN 59.1 mg/dL (7-18)
[2023-12-05 09:51] LABS: TOT PROT 6.5 g/dl (6.4-8.2)
[2023-12-05 09:52] LABS: CREATININE 1.4 mg/dL (0.55-1.3)
[2023-12-05 09:53] LABS: BILIRUBIN,TOTAL 1.5 mg/dL (0.2-1)
[2023-12-06 08:47] LABS: EOS % 1.4 % (0-4.5); HEMATOCRIT 23.2 % (35.4-49); HEMOGLOBIN 8.2 GM/dL (11.7-16.9); LYMPH % 11.6 % (8-40); MCH 27.7 pg (25.7-33.7); MCHC 35.4 g/dl (32.0-35.9); MEAN CELL VOLUME 78.1 fl (80-96); MEAN PLT VOLUME 6.9 fl (7.5-11.1); PLATELET COUNT 223 10^3/uL (134-434); RBC 2.97 M/mm3 (4.00-5.60); WHITE BLOOD COUNT 8.3 K/mm3 (4.0-10.0)
[2023-12-06 09:02] LABS: POTASSIUM 4.8 mmol/L (3.5-5.1)
[2023-12-06 09:03] LABS: CALCIUM 8.5 mg/dL (8.5-10.1)
[2023-12-06 09:05] LABS: ALBUMIN 2.3 g/dl (3.4-5.0); BLOOD UREA NITROGEN 73.3 mg/dL (7-18)
[2023-12-06 09:07] LABS: CREATININE 1.6 mg/dL (0.55-1.3)
[2023-12-06 09:09] LABS: BILIRUBIN,TOTAL 1.6 mg/dL (0.2-1); TOT PROT 6.7 g/dl (6.4-8.2)
[2023-12-06] MEDS: FERROUS SO4 325 MG TABLET (FP) PO SCH (09:57)
[2023-12-07] MEDS: ACETAMINOPHEN 325 MG TABLET (FP) PO PRN (11:21)
[2023-12-07 12:00] LABS: BASO % 1.1 % (0-2.0); EOS % 0.6 % (0-4.5); HEMATOCRIT 29.4 % (35.4-49); HEMOGLOBIN 10.1 GM/dL (11.7-16.9); LYMPH % 8.2 % (8-40); MCH 27.3 pg (25.7-33.7); MCHC 34.5 g/dl (32.0-35.9); MEAN CELL VOLUME 79.1 fl (80-96); MEAN PLT VOLUME 7.4 fl (7.5-11.1); NEUT % 85.1 % (42.8-82.8); PLATELET COUNT 254 10^3/uL (134-434); RBC 3.71 M/mm3 (4.00-5.60); RDW 22.1 % (11.9-15.9); WHITE BLOOD COUNT 10.4 K/mm3 (4.0-10.0)
[2023-12-08] MEDS: DAPTOMYCIN 800 MG in SODIUM CHLORIDE 50 ML IVPB SCH (11:03)
[2023-12-08] MEDS: oxyCODONE HCL 5 MG TABLET PO ONE (21:53)
[2023-12-09] MEDS: oxyCODONE HCL 5 MG TABLET PO ONE (10:28)
[2023-12-09 14:31] VITALS: BP 118/72; PULSE 70; RESP 19; TEMP 97.6
== END 2023-12-09 17:01 | disposition home health service (06) | DRG 617 ==
LOC: JER 16:21 → JERBED 20:38 → J5S 11-24 01:34
PROVIDERS: ADMIT Internal Medicine; ATTEND Internal Medicine
PROC: 30233N1 Transfusion of Nonautologous Red Blood Cells into Peripheral Vein, Percutaneous Approach (ICD-10-PCS; 2023-11-25)
PROC: 0Y6N0Z9 Detachment at Left Foot, Partial 1st Ray, Open Approach (ICD-10-PCS; principal; 2023-11-30 15:00)
PROC: 05HY33Z Insertion of Infusion Device into Upper Vein, Percutaneous Approach (ICD-10-PCS; 2023-12-08)
DX: E11.69 Type 2 diabetes mellitus with other specified complication (principal); I42.9 Cardiomyopathy, unspecified; I50.22 Chronic systolic (congestive) heart failure; L97.528 Non-pressure chronic ulcer of other part of left foot with other specified severity; M86.172 Other acute osteomyelitis, left ankle and foot; K62.5 Hemorrhage of anus and rectum; E11.621 Type 2 diabetes mellitus with foot ulcer; N17.9 Acute kidney failure, unspecified; D64.9 Anemia, unspecified; A49.02 Methicillin resistant Staphylococcus aureus infection, unspecified site; Z88.0 Allergy status to penicillin; N18.9 Chronic kidney disease, unspecified; E87.70 Fluid overload, unspecified; K21.9 Gastro-esophageal reflux disease without esophagitis
CPT/HCPCS: 36415; 36430; 36569; 71045-TC-FY; 73590-TC-LT-FY; 73610-TC-LT-FY; 73630-TC-LT; 73718-TC-LT; 80048; 80053; 81003; 82272; 82550; 82962; 83735; 83880; 85025; 85610; 85651; 85730; 86140; 86850; 86900; 86901; 86922; 87040; 87070; 87075; 87076; 87086; 87186; 87205; 87633; 88305-TC; 88311-TC; 93005; 93010; 93971-TC; 94760; 99285-25; C1713; G0480; J0131; J0878; P9058

== ENCOUNTER 2023-12-10 18:58 | Inpatient (IN) | payer BC ==
[2023-12-10] MEDS ORDERED: ONDANSETRON 4 MG/2 ML VIAL ONE ×2 (20:14→23:04)
[2023-12-10] MEDS ORDERED: FAMOTIDINE 20 MG/50 ML IVPB 20 MG/50 ML MG IVPB ONE (20:14)
[2023-12-10] MEDS ORDERED: ACETAMINOPHEN INJECTION 100 ML IVPB ONE (20:30)
[2023-12-10 20:35] LABS: VENOUS BASE EXCESS 5.3 mmol/L (-2-2); VENOUS O2 SATURATION 71.6 % (70-80); VENOUS PCO2 37.5 mmHg (38-52); VENOUS PH 7.501 (7.310-7.410)
[2023-12-10] MEDS: FAMOTIDINE 20 MG/50 ML IVPB 20 MG/50 ML MG IVPB ONE (20:36)
[2023-12-10] MEDS: LACTATED RINGERS SOLUTION 500 ML IV STA (20:37)
[2023-12-10] MEDS: ONDANSETRON 4 MG/2 ML VIAL IVPUSH ONE ×2 (20:37→23:12)
[2023-12-10] MEDS: ACETAMINOPHEN 1000 MG/100 ML BAG IVPB ONE (20:37)
[2023-12-10 20:38] LABS: HEMATOCRIT 28.3 % (35.4-49); HEMOGLOBIN 9.6 GM/dL (11.7-16.9); MCH 26.8 pg (25.7-33.7); MCHC 33.9 g/dl (32.0-35.9); MEAN CELL VOLUME 79.2 fl (80-96); MEAN PLT VOLUME 7.6 fl (7.5-11.1); PLATELET COUNT 259 10^3/uL (134-434); RBC 3.57 M/mm3 (4.00-5.60); RDW 22.9 % (11.9-15.9); WHITE BLOOD COUNT 12.8 K/mm3 (4.0-10.0)
[2023-12-10 20:46] LABS: INR 1.29 (0.83-1.09); PROTHROMBIN TIME (PATIENT) 14.5 SEC (9.7-13.0)
[2023-12-10 20:49] LABS: ACTIVATED PTT 36.1 SECONDS (25.2-36.5)
[2023-12-10] MEDS: LACTATED RINGERS SOLUTION 1,000 ML IV STA (20:54)
[2023-12-10 20:56] LABS: POTASSIUM 3.9 mmol/L (3.5-5.1)
[2023-12-10 20:58] LABS: BLOOD UREA NITROGEN 86.6 mg/dL (7-18); CALCIUM 9.5 mg/dL (8.5-10.1)
[2023-12-10 21:01] LABS: CREATININE 1.7 mg/dL (0.55-1.3)
[2023-12-10 21:03] LABS: BILIRUBIN,TOTAL 2.4 mg/dL (0.2-1); TOT PROT 8.4 g/dl (6.4-8.2)
[2023-12-10 21:05] LABS: ALBUMIN 3.3 g/dl (3.4-5.0)
[2023-12-10] MEDS ORDERED: METOCLOPRAMIDE HCL INJECTION 10 MG/2 ML VIAL ONE (21:28)
[2023-12-10] MEDS: METOCLOPRAMIDE HCL INJECTION 10 MG/2 ML VIAL IVPUSH ONE (21:29)
[2023-12-10 21:30] LABS: ANISOCYTOSIS 2+; MACROCYTOSIS 1+; OVALOCYTE 1+
[2023-12-10 21:40] LABS: PLATELET ESTIMATE ADEQUATE
[2023-12-10] MEDS ORDERED: morphine SULFATE 4 MG/ML VIAL ONE (22:34)
[2023-12-10] MEDS: morphine CARPU-JECT 4 MG/1 ML DISP.SYRIN IVPUSH ONE (22:45)
[2023-12-10] MEDS ORDERED: HYDROmorphone HCl 2 MG/ML VIAL ONE (23:03)
[2023-12-10] MEDS ORDERED: PANTOPRAZOLE SODIUM 40 MG/100 ML BAG IVPB ONE (23:04)
[2023-12-10] MEDS: PANTOPRAZOLE SODIUM 40 MG VIAL IVPUSH ONE (23:12)
[2023-12-10] MEDS: HYDROmorphone HCl 2 MG/ML VIAL IVPUSH ONE (23:12)
[2023-12-11] MEDS: SODIUM CHLORIDE 0.45% 1,000 ML IV SCH (01:00)
[2023-12-11 06:43] LABS: BASO % 0.4 % (0-2.0); EOS % 0.2 % (0-4.5); HEMATOCRIT 22.7 % (35.4-49); HEMOGLOBIN 8.1 GM/dL (11.7-16.9); LYMPH % 10.4 % (8-40); MCH 28.1 pg (25.7-33.7); MCHC 35.6 g/dl (32.0-35.9); MEAN CELL VOLUME 78.8 fl (80-96); MEAN PLT VOLUME 7.7 fl (7.5-11.1); MONO % 4.8 % (3.8-10.2); NEUT % 84.2 % (42.8-82.8); PLATELET COUNT 192 10^3/uL (134-434); RBC 2.87 M/mm3 (4.00-5.60); RDW 22.1 % (11.9-15.9); WHITE BLOOD COUNT 10.2 K/mm3 (4.0-10.0)
[2023-12-11] MEDS ORDERED: SENNOSIDES 8.6MG TABLET (FP) PO PRN (07:09)
[2023-12-11 07:19] LABS: POTASSIUM 4.5 mmol/L (3.5-5.1)
[2023-12-11 07:24] LABS: ALBUMIN 2.8 g/dl (3.4-5.0); BLOOD UREA NITROGEN 81.1 mg/dL (7-18); MAGNESIUM 2.7 mg/dL (1.8-2.4)
[2023-12-11 07:27] LABS: CREATININE 1.8 mg/dL (0.55-1.3)
[2023-12-11 07:28] LABS: BILIRUBIN,TOTAL 1.3 mg/dL (0.2-1); TOT PROT 7.3 g/dl (6.4-8.2)
[2023-12-11] MEDS ORDERED: metoPROLOL SUCCINATE 25 MG TAB.SR.24H (FP) PO ONE (09:07)
[2023-12-11] MEDS ORDERED: FERROUS SO4 325 MG TABLET (FP) ONE (09:07)
[2023-12-11] MEDS ORDERED: SACUBITRIL/VALSARTAN 24 MG-26 MG TABLET ONE (09:07)
[2023-12-11] MEDS ORDERED: oxyCODONE HCL 5 MG TABLET ONE (10:14)
[2023-12-11] MEDS ORDERED: ONDANSETRON 4 MG/2 ML VIAL ONE (10:16)
[2023-12-11] MEDS: SERTRALINE HCL 25 MG TABLET (FP) PO SCH (10:29)
[2023-12-11] MEDS: oxyCODONE HCL 5 MG TABLET PO PRN (10:29)
[2023-12-11] MEDS: SACUBITRIL/VALSARTAN 24 MG-26 MG TABLET PO SCH (10:29)
[2023-12-11] MEDS: TORSEMIDE 100 MG TABLET PO SCH (10:29)
[2023-12-11] MEDS: FERROUS SO4 325 MG TABLET (FP) PO SCH (10:29)
[2023-12-11] MEDS: metoPROLOL SUCCINATE 25 MG TAB.SR.24H (FP) PO SCH (10:29)
[2023-12-11] MEDS: HEPARIN NA (PORCINE) 5,000 UNITS/ML 1ML VIAL SQ SCH (13:45)
[2023-12-11] MEDS: DOCUSATE SODIUM 100 MG CAPSULE (FP) PO SCH (13:45)
[2023-12-11] MEDS: VANCOMYCIN/WATER FOR INJ (PEG) 1,000 MG/200 ML BAG IVPB ONE (14:52)
[2023-12-11] MEDS ORDERED: INSULIN ASPART SLIDING SCALE (NOVOLOG) 1 VIAL SQ SCH (16:30)
[2023-12-11] MEDS: ONDANSETRON 4 MG/2 ML VIAL IVPUSH PRN (17:15)
[2023-12-11] MEDS: INSULIN ASPART SLIDING SCALE (NOVOLOG) 1 VIAL SQ SCH (17:22)
[2023-12-11] MEDS: POLYETHYLENE GLYCOL (HEALTHYLAX) 3350 17 GM PACKET PO SCH (21:27)
[2023-12-11] MEDS: SENNOSIDES 8.6MG TABLET (FP) PO SCH (21:27)
[2023-12-12 07:35] LABS: BASO % 0.8 % (0-2.0); EOS % 0.2 % (0-4.5); HEMATOCRIT 25.7 % (35.4-49); HEMOGLOBIN 9.1 GM/dL (11.7-16.9); LYMPH % 8.8 % (8-40); MCH 27.8 pg (25.7-33.7); MCHC 35.3 g/dl (32.0-35.9); MEAN CELL VOLUME 78.7 fl (80-96); MEAN PLT VOLUME 7.5 fl (7.5-11.1); MONO % 3.9 % (3.8-10.2); NEUT % 86.3 % (42.8-82.8); PLATELET COUNT 215 10^3/uL (134-434); RBC 3.26 M/mm3 (4.00-5.60); RDW 22.4 % (11.9-15.9); WHITE BLOOD COUNT 11.9 K/mm3 (4.0-10.0)
[2023-12-12 07:53] LABS: POTASSIUM 4.2 mmol/L (3.5-5.1)
[2023-12-12 07:56] LABS: CALCIUM 8.8 mg/dL (8.5-10.1)
[2023-12-12 07:57] LABS: ALBUMIN 2.8 g/dl (3.4-5.0)
[2023-12-12 08:00] LABS: CREATININE 1.6 mg/dL (0.55-1.3)
[2023-12-12 08:01] LABS: BILIRUBIN,TOTAL 1.7 mg/dL (0.2-1)
[2023-12-12 08:02] LABS: TOT PROT 7.3 g/dl (6.4-8.2)
[2023-12-12] MEDS: PANTOPRAZOLE SODIUM 40 MG VIAL IVPUSH SCH (09:00)
[2023-12-12] MEDS: MINERAL OIL ENEMA 133 ML ENEMA RC ONE (13:37)
[2023-12-12] MEDS: VANCOMYCIN/WATER FOR INJ (PEG) 1,000 MG/200 ML BAG IVPB ONE (15:29)
[2023-12-12] MEDS: BISACODYL 10 MG SUPP.RECT PR ONE (16:59)
[2023-12-13 08:42] LABS: EPI CELLS 12 /uL (0-25.1); HYALINE CASTS 1 /uL (0-3.1); URINE APPEARANCE CLEAR; URINE BACTERIA 19 /uL (0-1359); URINE BILIRUBIN NEGATIVE (NEGATIVE); URINE COLOR DK YELLOW; URINE GLUCOSE (UA) NEGATIVE (NEGATIVE); URINE KETONE NEGATIVE (NEGATIVE); URINE LEUK ESTERASE NEGATIVE (NEGATIVE); URINE NITRITE NEGATIVE (NEGATIVE); URINE PROTEIN 4+ (NEGATIVE); URINE RBC 284 /uL (0-23.9); URINE WBC 24 /uL (0-25.8)
[2023-12-13 10:25] LABS: BILIRUBIN,DIRECT 0.6 mg/dL (0.0-0.2)
[2023-12-13 10:27] LABS: BILIRUBIN,TOTAL 1.8 mg/dL (0.2-1)
[2023-12-13] MEDS: BISACODYL 10 MG SUPP.RECT PR PRN (14:48)
[2023-12-13] MEDS: VANCOMYCIN/WATER FOR INJ (PEG) 1,000 MG/200 ML BAG IVPB ONE (14:48)
[2023-12-13] MEDS: TRIMETHOBENZAMIDE HCL 200MG/2ML INJ IM ONE (17:23)
[2023-12-13] MEDS: INSULIN (LEVEMIR) 100 UNITS/ML UNITS SQ SCH (22:08)
[2023-12-13] MEDS: MINERAL OIL ENEMA 133 ML ENEMA RC ONE (23:22)
[2023-12-14 08:38] LABS: POTASSIUM 3.9 mmol/L (3.5-5.1)
[2023-12-14 08:42] LABS: ALBUMIN 2.6 g/dl (3.4-5.0); CALCIUM 8.7 mg/dL (8.5-10.1)
[2023-12-14 08:45] LABS: CREATININE 1.3 mg/dL (0.55-1.3)
[2023-12-14 08:47] LABS: BILIRUBIN,TOTAL 1.6 mg/dL (0.2-1); TOT PROT 6.7 g/dl (6.4-8.2)
[2023-12-14 08:48] LABS: ALBUMIN 2.7 g/dl (3.4-5.0)
[2023-12-14 08:49] LABS: BLOOD UREA NITROGEN 24.8 mg/dL (7-18)
[2023-12-14 08:50] LABS: BASO % 0.8 % (0-2.0); EOS % 0.6 % (0-4.5); HEMATOCRIT 24.9 % (35.4-49); HEMOGLOBIN 8.7 GM/dL (11.7-16.9); LYMPH % 9.7 % (8-40); MCH 27.8 pg (25.7-33.7); MEAN CELL VOLUME 79.5 fl (80-96); MEAN PLT VOLUME 7.4 fl (7.5-11.1); MONO % 5.5 % (3.8-10.2); NEUT % 83.4 % (42.8-82.8); PLATELET COUNT 177 10^3/uL (134-434); RBC 3.13 M/mm3 (4.00-5.60); RDW 22.3 % (11.9-15.9); WHITE BLOOD COUNT 7.8 K/mm3 (4.0-10.0)
[2023-12-14 08:51] LABS: BILIRUBIN,DIRECT 0.5 mg/dL (0.0-0.2)
[2023-12-14 08:53] LABS: BILIRUBIN,TOTAL 1.6 mg/dL (0.2-1); TOT PROT 6.7 g/dl (6.4-8.2)
[2023-12-14 10:19] LABS: ANISOCYTOSIS 3+; MACROCYTOSIS 0
[2023-12-14] MEDS: VANCOMYCIN/WATER 1250 MG 1,250 MG/250 ML BAG IVPB ONE (16:44)
[2023-12-15] MEDS: VANCOMYCIN/WATER 1250 MG 1,250 MG/250 ML BAG IVPB ONE (22:26)
[2023-12-15] MEDS: morphine SO4 SUSTAINED ACTING 15 MG TABLET.SA PO SCH (22:27)
[2023-12-16] MEDS ORDERED: NITROGLYCERIN SUBLINGUAL 1/200 0.3 MG BTL SL PRN ×3 (06:50→10:59)
[2023-12-16] MEDS ORDERED: NITROGLYCERIN SUBLINGUAL 1/150 0.4 MG TAB ONE (06:51)
[2023-12-16 07:19] LABS: BASO % 1.3 % (0-2.0); EOS % 1.6 % (0-4.5); HEMATOCRIT 26.4 % (35.4-49); HEMOGLOBIN 9.4 GM/dL (11.7-16.9); LYMPH % 23.7 % (8-40); MCH 28.2 pg (25.7-33.7); MCHC 35.6 g/dl (32.0-35.9); MEAN CELL VOLUME 79.1 fl (80-96); MEAN PLT VOLUME 7.3 fl (7.5-11.1); MONO % 7.3 % (3.8-10.2); NEUT % 66.1 % (42.8-82.8); PLATELET COUNT 187 10^3/uL (134-434); RBC 3.33 M/mm3 (4.00-5.60); WHITE BLOOD COUNT 6.2 K/mm3 (4.0-10.0)
[2023-12-16] MEDS ORDERED: HEPARIN NA (PORCINE) 5,000 UNITS/ML 1ML VIAL IVPUSH PRN ×2 (07:21)
[2023-12-16 07:36] LABS: POTASSIUM 3.4 mmol/L (3.5-5.1)
[2023-12-16 07:39] LABS: CALCIUM 8.7 mg/dL (8.5-10.1)
[2023-12-16 07:40] LABS: BLOOD UREA NITROGEN 22.4 mg/dL (7-18)
[2023-12-16 07:43] LABS: CREATININE 1.3 mg/dL (0.55-1.3)
[2023-12-16 07:44] LABS: TOT PROT 7.1 g/dl (6.4-8.2)
[2023-12-16 07:45] LABS: BILIRUBIN,TOTAL 2.1 mg/dL (0.2-1)
[2023-12-16] MEDS: SIMETHICONE 80 MG TAB.CHEW (FP) PO ONE (09:12)
[2023-12-16 09:39] LABS: BILIRUBIN,DIRECT 0.6 mg/dL (0.0-0.2)
[2023-12-16] MEDS ORDERED: BISACODYL 10 MG SUPP.RECT PR PRN (09:50)
[2023-12-16] MEDS: MAG HYDROX/AL HYDROX/SIMETH -MYLANTA- ORAL SUSPENSION PO ONE ×2 (09:53→21:48)
[2023-12-16] MEDS: TORSEMIDE 100 MG TABLET PO SCH (10:00)
[2023-12-16] MEDS: HEPARIN NA (PORCINE) 5,000 UNITS/ML 1ML VIAL IVPUSH ONE (11:23)
[2023-12-16] MEDS: POLYETHYLENE GLYCOL (HEALTHYLAX) 3350 17 GM PACKET PO SCH (11:24)
[2023-12-16] MEDS: morphine SO4 SUSTAINED ACTING 15 MG TABLET.SA PO SCH (11:24)
[2023-12-16] MEDS: INSULIN ASPART SLIDING SCALE (NOVOLOG) 1 VIAL SQ SCH (11:33)
[2023-12-16] MEDS ORDERED: INSULIN (NOVOLOG) ASPART 100 UNITS/ML 10ML VIAL ONE ×2 (11:42→17:05)
[2023-12-16] MEDS: DOCUSATE SODIUM 100 MG CAPSULE (FP) PO SCH (15:08)
[2023-12-16] MEDS: TICAGRELOR 90 MG TABLET PO ONE (16:58)
[2023-12-16] MEDS: oxyCODONE HCL 5 MG TABLET PO PRN (17:08)
[2023-12-16] MEDS: ONDANSETRON 4 MG/2 ML VIAL IVPUSH PRN (17:08)
[2023-12-16] MEDS: DAPTOMYCIN 750 MG in SODIUM CHLORIDE 50 ML IVPB SCH (18:59)
[2023-12-16] MEDS: metoPROLOL SUCCINATE 25 MG TAB.SR.24H (FP) PO SCH (21:44)
[2023-12-16] MEDS: SACUBITRIL/VALSARTAN 24 MG-26 MG TABLET PO SCH (21:44)
[2023-12-16] MEDS: SERTRALINE HCL 25 MG TABLET (FP) PO SCH (21:44)
[2023-12-16] MEDS: PANTOPRAZOLE SODIUM 40 MG VIAL IVPUSH SCH (21:48)
[2023-12-16] MEDS: HEPARIN INFUSION - 25,000 UNITS/500 ML INFUS.BAG IVPB SCH (21:48)
[2023-12-16] MEDS: INSULIN (LEVEMIR) 100 UNITS/ML UNITS SQ SCH (21:53)
[2023-12-16] MEDS: SENNOSIDES 8.6MG TABLET (FP) PO SCH (21:55)
[2023-12-16] MEDS: PANTOPRAZOLE 40 MG TABLET PO SCH (21:55)
[2023-12-16] MEDS ORDERED: ATORVASTATIN CA 40 MG TABLET (FP) PO SCH (22:00)
[2023-12-17] MEDS ORDERED: PANTOPRAZOLE 40 MG TABLET PO SCH (10:00)
[2023-12-17] MEDS ORDERED: REGADENOSON 0.4 MG/5 ML PRE-FILLED SYRINGE IVPUSH ONE ×2 (11:40→12:31)
[2023-12-17] MEDS ORDERED: AMINOPHYLLINE 250 MG/10 ML VIAL ONE (12:32)
[2023-12-17 12:43] VITALS: BMI 24.0
[2023-12-17] MEDS: REGADENOSON 0.4 MG/5 ML PRE-FILLED SYRINGE IVPUSH ONE (12:45)
[2023-12-17] MEDS: AMINOPHYLLINE 250 MG/10 ML VIAL IVPUSH ONE (13:39)
[2023-12-17] MEDS: PANTOPRAZOLE SODIUM 40 MG VIAL IVPUSH SCH (14:08)
[2023-12-18 06:59] LABS: EOS % 2.2 % (0-4.5); HEMATOCRIT 21.8 % (35.4-49); HEMOGLOBIN 7.7 GM/dL (11.7-16.9); LYMPH % 23.3 % (8-40); MCHC 35.6 g/dl (32.0-35.9); MEAN CELL VOLUME 78.8 fl (80-96); MEAN PLT VOLUME 7.8 fl (7.5-11.1); MONO % 7.2 % (3.8-10.2); NEUT % 66.3 % (42.8-82.8); PLATELET COUNT 155 10^3/uL (134-434); RBC 2.77 M/mm3 (4.00-5.60); RDW 22.5 % (11.9-15.9); WHITE BLOOD COUNT 6.6 K/mm3 (4.0-10.0)
[2023-12-18 07:15] LABS: POTASSIUM 3.6 mmol/L (3.5-5.1)
[2023-12-18 07:18] LABS: CALCIUM 8.2 mg/dL (8.5-10.1)
[2023-12-18 07:19] LABS: ALBUMIN 2.6 g/dl (3.4-5.0); BLOOD UREA NITROGEN 29.6 mg/dL (7-18)
[2023-12-18 07:22] LABS: CREATININE 1.3 mg/dL (0.55-1.3)
[2023-12-18 07:23] LABS: BILIRUBIN,TOTAL 1.5 mg/dL (0.2-1)
[2023-12-18 07:25] LABS: TOT PROT 6.1 g/dl (6.4-8.2)
[2023-12-18 11:41] LABS: ANISOCYTOSIS 3+; MACROCYTOSIS 0
[2023-12-18] MEDS ORDERED: INSULIN (NOVOLOG) ASPART 100 UNITS/ML 10ML VIAL ONE ×2 (17:25→21:50)
[2023-12-18] MEDS ORDERED: NITROGLYCERIN SUBLINGUAL 1/150 0.4 MG TAB SL PRN (18:17)
[2023-12-18] MEDS: oxyCODONE HCL 5 MG TABLET PO PRN (21:08)
[2023-12-18] MEDS: INSULIN ASPART SLIDING SCALE (NOVOLOG) 1 VIAL SQ SCH (22:50)
[2023-12-18] MEDS: POLYETHYLENE GLYCOL (HEALTHYLAX) 3350 17 GM PACKET PO SCH (22:50)
[2023-12-18] MEDS: SACUBITRIL/VALSARTAN 24 MG-26 MG TABLET PO SCH (22:50)
[2023-12-18] MEDS: FERROUS SO4 325 MG TABLET (FP) PO SCH (22:50)
[2023-12-19] MEDS: INSULIN (LEVEMIR) 100 UNITS/ML UNITS SQ SCH (01:05)
[2023-12-19] MEDS: morphine SO4 SUSTAINED ACTING 15 MG TABLET.SA PO SCH (01:06)
[2023-12-19 08:55] LABS: BASO % 1.1 % (0-2.0); HEMATOCRIT 19.9 % (35.4-49); LYMPH % 17.2 % (8-40); MCH 28.3 pg (25.7-33.7); MCHC 35.2 g/dl (32.0-35.9); MEAN CELL VOLUME 80.3 fl (80-96); MEAN PLT VOLUME 7.8 fl (7.5-11.1); MONO % 6.8 % (3.8-10.2); NEUT % 71.9 % (42.8-82.8); PLATELET COUNT 145 10^3/uL (134-434); RBC 2.48 M/mm3 (4.00-5.60); RDW 22.3 % (11.9-15.9); WHITE BLOOD COUNT 5.4 K/mm3 (4.0-10.0)
[2023-12-19 09:15] LABS: POTASSIUM 4.3 mmol/L (3.5-5.1)
[2023-12-19 09:21] LABS: CALCIUM 8.7 mg/dL (8.5-10.1)
[2023-12-19 09:22] LABS: ALBUMIN 2.7 g/dl (3.4-5.0); BLOOD UREA NITROGEN 47.8 mg/dL (7-18)
[2023-12-19 09:23] LABS: CREATININE 1.8 mg/dL (0.55-1.3)
[2023-12-19 09:25] LABS: BILIRUBIN,TOTAL 1.4 mg/dL (0.2-1); TOT PROT 6.2 g/dl (6.4-8.2)
[2023-12-19] MEDS: metoPROLOL SUCCINATE 25 MG TAB.SR.24H (FP) PO SCH (10:17)
[2023-12-19] MEDS: PANTOPRAZOLE 40 MG TABLET PO SCH (10:17)
[2023-12-19] MEDS: SERTRALINE HCL 25 MG TABLET (FP) PO SCH (10:18)
[2023-12-19] MEDS ORDERED: INSULIN (NOVOLOG) ASPART 100 UNITS/ML 10ML VIAL ONE ×2 (11:45→21:35)
[2023-12-19] MEDS: TORSEMIDE 100 MG TABLET PO SCH (12:49)
[2023-12-19] MEDS: ONDANSETRON 4 MG/2 ML VIAL IVPUSH PRN (18:27)
[2023-12-19] MEDS: DAPTOMYCIN 750 MG in SODIUM CHLORIDE 50 ML IVPB SCH (19:14)
[2023-12-20 06:38] VITALS: TEMP 98.1
[2023-12-20 11:04] LABS: BASO % 1.4 % (0-2.0); EOS % 4.3 % (0-4.5); HEMATOCRIT 25.8 % (35.4-49); HEMOGLOBIN 9.1 GM/dL (11.7-16.9); LYMPH % 10.7 % (8-40); MCH 29.1 pg (25.7-33.7); MCHC 35.3 g/dl (32.0-35.9); MEAN CELL VOLUME 82.4 fl (80-96); MEAN PLT VOLUME 7.8 fl (7.5-11.1); MONO % 6.9 % (3.8-10.2); NEUT % 76.7 % (42.8-82.8); PLATELET COUNT 145 10^3/uL (134-434); RBC 3.13 M/mm3 (4.00-5.60); RDW 21.4 % (11.9-15.9)
[2023-12-20] MEDS ORDERED: INSULIN (NOVOLOG) ASPART 100 UNITS/ML 10ML VIAL ONE (11:41)
[2023-12-20] MEDS: metroNIDAZOLE 250 MG TABLET PO SCH (14:25)
[2023-12-20 15:37] VITALS: BP 121/77; PULSE 78; RESP 18
[2023-12-20] MEDS: DAPTOMYCIN 750 MG in SODIUM CHLORIDE 50 ML IVPB SCH (16:12)
== END 2023-12-20 17:26 | disposition home health service (06) | DRG 811 ==
LOC: JER 18:58 → JERBED 12-11 00:49 → J5S 12-11 10:42 → J2W 12-16 08:32 → J8W 12-18 18:14
PROVIDERS: ADMIT Internal Medicine; ATTEND Internal Medicine
PROC: 30233N1 Transfusion of Nonautologous Red Blood Cells into Peripheral Vein, Percutaneous Approach (ICD-10-PCS; principal; 2023-12-19)
DX: D55.0 Anemia due to glucose-6-phosphate dehydrogenase [G6PD] deficiency (principal); I50.23 Acute on chronic systolic (congestive) heart failure; M62.82 Rhabdomyolysis; I13.0 Hypertensive heart and chronic kidney disease with heart failure and stage 1 through stage 4 chronic kidney disease, or unspecified chronic kidney disease; L97.518 Non-pressure chronic ulcer of other part of right foot with other specified severity; M86.671 Other chronic osteomyelitis, right ankle and foot; L97.528 Non-pressure chronic ulcer of other part of left foot with other specified severity; K21.9 Gastro-esophageal reflux disease without esophagitis; K44.9 Diaphragmatic hernia without obstruction or gangrene; K57.90 Diverticulosis of intestine, part unspecified, without perforation or abscess without bleeding; L03.032 Cellulitis of left toe; R11.2 Nausea with vomiting, unspecified; R74.01 Elevation of levels of liver transaminase levels; T36.8X5A Adverse effect of other systemic antibiotics, initial encounter; R10.13 Epigastric pain; E11.69 Type 2 diabetes mellitus with other specified complication; E11.621 Type 2 diabetes mellitus with foot ulcer; E11.51 Type 2 diabetes mellitus with diabetic peripheral angiopathy without gangrene; E11.22 Type 2 diabetes mellitus with diabetic chronic kidney disease; N18.9 Chronic kidney disease, unspecified; K59.00 Constipation, unspecified; D63.1 Anemia in chronic kidney disease
CPT/HCPCS: 36415; 36430; 71045-TC-FY; 74176-TC; 74181-TC; 76705-TC; 78452-TC; 80053; 80076; 81003; 82103; 82247; 82248; 82550; 82553; 82803; 82962; 82977; 83516; 83605; 83690; 83735; 83874; 83880; 84100; 84484; 85025; 85610; 85730; 86038; 86705; 86708; 86850; 86900; 86901; 86922; 87340; 87517; 87522; 93005; 93010; 93017; 93306-TC; 97116-GP; 97161-GP; 99285-25; A9502; G0480; J0131; J0878; J1644; J2785; P9038; P9058

== ENCOUNTER 2023-12-28 15:44 | Inpatient (IN) | payer BC ==
[2023-12-28 17:00] LABS: HEMATOCRIT 21.1 % (35.4-49); HEMOGLOBIN 7.5 GM/dL (11.7-16.9); MCH 29.9 pg (25.7-33.7); MCHC 35.4 g/dl (32.0-35.9); MEAN CELL VOLUME 84.5 fl (80-96); MEAN PLT VOLUME 7.4 fl (7.5-11.1); PLATELET COUNT 135 10^3/uL (134-434); RDW 19.9 % (11.9-15.9); WHITE BLOOD COUNT 12.4 K/mm3 (4.0-10.0)
[2023-12-28 17:08] LABS: INR 1.1 (0.83-1.09); PROTHROMBIN TIME (PATIENT) 12.4 SEC (9.7-13.0)
[2023-12-28 17:30] LABS: POTASSIUM 4.8 mmol/L (3.5-5.1)
[2023-12-28 17:31] LABS: CALCIUM 8.9 mg/dL (8.5-10.1)
[2023-12-28 17:32] LABS: ALBUMIN 2.8 g/dl (3.4-5.0); BLOOD UREA NITROGEN 32.8 mg/dL (7-18)
[2023-12-28 17:35] LABS: CREATININE 1.2 mg/dL (0.55-1.3)
[2023-12-28 17:37] LABS: TOT PROT 6.2 g/dl (6.4-8.2)
[2023-12-28 17:41] LABS: BILIRUBIN,TOTAL 2.2 mg/dL (0.2-1)
[2023-12-28] MEDS ORDERED: ACETAMINOPHEN INJECTION 100 ML IVPB ONE (20:06)
[2023-12-28] MEDS ORDERED: oxyCODONE HCL 5 MG TABLET ONE (20:17)
[2023-12-28] MEDS: oxyCODONE HCL 5 MG TABLET PO ONE (20:40)
[2023-12-28] MEDS: ACETAMINOPHEN 1000 MG/100 ML BAG IVPB ONE (20:44)
[2023-12-28] MEDS: INSULIN ASPART SLIDING SCALE (NOVOLOG) 1 VIAL SQ SCH (20:56)
[2023-12-28] MEDS ORDERED: SENNOSIDES 8.6MG TABLET (FP) PO PRN (21:02)
[2023-12-28] MEDS ORDERED: CEFEPIME HCL 2 GM VIAL (RESTRICTED TO ID) IVPB SCH ×2 (21:15→21:30)
[2023-12-28] MEDS: SACUBITRIL/VALSARTAN 24 MG-26 MG TABLET PO SCH (22:44)
[2023-12-28] MEDS: CEFEPIME 2 GM in DEXTROSE 5%-WATER 100 ML IVPB SCH (22:44)
[2023-12-28] MEDS: FERROUS SO4 325 MG TABLET (FP) PO SCH (22:44)
[2023-12-28] MEDS: DOCUSATE SODIUM 100 MG CAPSULE (FP) PO SCH (22:49)
[2023-12-28] MEDS: INSULIN (LEVEMIR) 100 UNITS/ML UNITS SQ SCH (22:50)
[2023-12-29] MEDS: PANTOPRAZOLE SODIUM 40 MG VIAL IVPUSH SCH (00:25)
[2023-12-29] MEDS: ONDANSETRON 4 MG/2 ML VIAL IVPUSH PRN (00:25)
[2023-12-29] MEDS: metroNIDAZOLE 500 MG TABLET PO SCH ×2 (00:39→15:00)
[2023-12-29] MEDS: POLYETHYLENE GLYCOL (HEALTHYLAX) 3350 17 GM PACKET PO SCH ×2 (00:46→21:05)
[2023-12-29] MEDS ORDERED: ACETAMINOPHEN 325 MG TABLET (FP) PO PRN (04:00)
[2023-12-29] MEDS: oxyCODONE HCL 5 MG TABLET PO PRN ×2 (06:29→21:05)
[2023-12-29 08:09] LABS: HEMATOCRIT 21.6 % (35.4-49); HEMOGLOBIN 7.8 GM/dL (11.7-16.9); MCH 30.5 pg (25.7-33.7); MCHC 36.3 g/dl (32.0-35.9); MEAN PLT VOLUME 7.5 fl (7.5-11.1); PLATELET COUNT 127 10^3/uL (134-434); RBC 2.57 M/mm3 (4.00-5.60); RDW 19.8 % (11.9-15.9); WHITE BLOOD COUNT 8.8 K/mm3 (4.0-10.0)
[2023-12-29 08:19] LABS: POTASSIUM 4.7 mmol/L (3.5-5.1)
[2023-12-29 08:24] LABS: BLOOD UREA NITROGEN 30.8 mg/dL (7-18)
[2023-12-29 08:25] LABS: CALCIUM 8.4 mg/dL (8.5-10.1)
[2023-12-29 08:26] LABS: ALBUMIN 2.6 g/dl (3.4-5.0)
[2023-12-29 08:28] LABS: BILIRUBIN,DIRECT 0.5 mg/dL (0.0-0.2); PHOSPHOROUS 3.9 mg/dL (2.5-4.9)
[2023-12-29 08:29] LABS: IRON SERUM 54 ug/dL (50-175); TOT PROT 6.1 g/dl (6.4-8.2)
[2023-12-29 08:30] LABS: TOTAL IRON BINDING CAPACITY 190 ug/dL (250-450)
[2023-12-29] MEDS ORDERED: oxyCODONE HCL 5 MG TABLET PO PRN (10:00)
[2023-12-29] MEDS ORDERED: PROPOFOL 20 ML ONE (11:36)
[2023-12-29] MEDS ORDERED: FENTANYL CITRATE/PF 50 MCG/ML VIAL ONE (11:36)
[2023-12-29] MEDS ORDERED: LIDOCAINE HCL/PF 2% SDV 5ML VIAL ONE (11:36)
[2023-12-29] MEDS ORDERED: MIDAZOLAM HCL 2 MG/2 ML SINGLE DOSE VIAL ONE (11:37)
[2023-12-29] MEDS: LIDOCAINE HCL 2% (50ML VIAL) NR ONE (12:02)
[2023-12-29] MEDS ORDERED: GENTAMICIN SO4 80 MG/2 ML VIAL ONE (12:07)
[2023-12-29] MEDS ORDERED: LIDOCAINE HCL 2% (20ML MULTI-DOSE VIAL) ONE (12:07)
[2023-12-29] MEDS ORDERED: PROPOFOL 40 ML ONE (12:18)
[2023-12-29] MEDS ORDERED: PROMETHAZINE HCL 25 MG/1 ML VIAL IVPB PRN (12:51)
[2023-12-29] MEDS ORDERED: ACETAMINOPHEN INJECTION 100 ML IVPB ONE (13:22)
[2023-12-29] MEDS: ACETAMINOPHEN 1000 MG/100 ML BAG IVPB ONE (13:27)
[2023-12-29] MEDS ORDERED: KETOROLAC TROMETHAMINE 30 MG/1 ML VIAL ONE (14:21)
[2023-12-29] MEDS: KETOROLAC TROMETHAMINE 30 MG/1 ML VIAL IVPUSH ONE (14:22)
[2023-12-29] MEDS: DOCUSATE SODIUM 100 MG CAPSULE (FP) PO SCH (15:26)
[2023-12-29] MEDS: TORSEMIDE 100 MG TABLET PO SCH (15:27)
[2023-12-29] MEDS: SERTRALINE HCL 25 MG TABLET (FP) PO SCH (15:28)
[2023-12-29] MEDS: metoPROLOL SUCCINATE 25 MG TAB.SR.24H (FP) PO SCH (15:28)
[2023-12-29 15:51] VITALS: BMI 24.5
[2023-12-29] MEDS: INSULIN ASPART SLIDING SCALE (NOVOLOG) 1 VIAL SQ SCH (16:43)
[2023-12-29] MEDS: MULTIVITAMINS (DAILY MVI) TABLET (FP) PO SCH (16:43)
[2023-12-29] MEDS: CEFEPIME 2 GM in DEXTROSE 5%-WATER 100 ML IVPB SCH (18:00)
[2023-12-29] MEDS ORDERED: CEFEPIME 2 GM in DEXTROSE 5%-WATER 100 ML IVPB SCH (18:00)
[2023-12-29] MEDS ORDERED: DAPTOmycin 500 MG VIAL (RESTRICTED TO ID) IVPB SCH (18:00)
[2023-12-29] MEDS ORDERED: DAPTOMYCIN 750 MG in SODIUM CHLORIDE 50 ML IVPB SCH (18:00)
[2023-12-29] MEDS: SACUBITRIL/VALSARTAN 24 MG-26 MG TABLET PO SCH (21:04)
[2023-12-29] MEDS: ASCORBIC ACID 500 MG TABLET (FP) PO SCH (21:05)
[2023-12-29] MEDS: FERROUS SO4 325 MG TABLET (FP) PO SCH (21:05)
[2023-12-29] MEDS: DAPTOMYCIN 750 MG in SODIUM CHLORIDE 50 ML IVPB SCH (21:05)
[2023-12-29] MEDS: INSULIN (LEVEMIR) 100 UNITS/ML UNITS SQ SCH (22:41)
[2023-12-30] MEDS: ACETAMINOPHEN 325 MG TABLET (FP) PO PRN (02:27)
[2023-12-30] MEDS: CEFEPIME 2 GM in DEXTROSE 5%-WATER 100 ML IVPB SCH (08:49)
[2023-12-30] MEDS: LACTATED RINGERS SOLUTION 1,000 ML IV SCH (08:49)
[2023-12-30] MEDS: ONDANSETRON 4 MG/2 ML VIAL IVPUSH PRN (08:57)
[2023-12-30 09:35] LABS: BASO % 0.9 % (0-2.0); EOS % 1.7 % (0-4.5); HEMATOCRIT 22.2 % (35.4-49); HEMOGLOBIN 7.9 GM/dL (11.7-16.9); LYMPH % 9.6 % (8-40); MCH 29.6 pg (25.7-33.7); MCHC 35.6 g/dl (32.0-35.9); MEAN CELL VOLUME 83.1 fl (80-96); MEAN PLT VOLUME 7.1 fl (7.5-11.1); MONO % 4.9 % (3.8-10.2); NEUT % 82.9 % (42.8-82.8); PLATELET COUNT 143 10^3/uL (134-434); RBC 2.68 M/mm3 (4.00-5.60); WHITE BLOOD COUNT 8.8 K/mm3 (4.0-10.0)
[2023-12-30 09:43] LABS: POTASSIUM 4.7 mmol/L (3.5-5.1)
[2023-12-30 09:49] LABS: CALCIUM 8.5 mg/dL (8.5-10.1)
[2023-12-30 09:50] LABS: ALBUMIN 2.7 g/dl (3.4-5.0)
[2023-12-30 09:54] LABS: BILIRUBIN,TOTAL 2.1 mg/dL (0.2-1)
[2023-12-30 09:55] LABS: TOT PROT 6.5 g/dl (6.4-8.2)
[2023-12-30] MEDS: TORSEMIDE 100 MG TABLET PO SCH (09:56)
[2023-12-30] MEDS: metoPROLOL SUCCINATE 25 MG TAB.SR.24H (FP) PO SCH (09:57)
[2023-12-30] MEDS: SERTRALINE HCL 25 MG TABLET (FP) PO SCH (09:57)
[2023-12-30] MEDS: PANTOPRAZOLE SODIUM 40 MG VIAL IVPUSH SCH (10:15)
[2023-12-30] MEDS: BISACODYL 5 MG TABLET.DR (FP) PO SCH (11:00)
[2023-12-30] MEDS ORDERED: ONDANSETRON *ODT* 4 MG TABLET SL PRN (16:12)
[2023-12-30] MEDS: SENNOSIDES 8.6MG TABLET (FP) PO PRN (21:27)
[2023-12-31 09:12] LABS: BASO % 1.1 % (0-2.0); EOS % 2.5 % (0-4.5); HEMATOCRIT 20.9 % (35.4-49); HEMOGLOBIN 7.5 GM/dL (11.7-16.9); LYMPH % 14.6 % (8-40); MCH 29.4 pg (25.7-33.7); MCHC 35.9 g/dl (32.0-35.9); MEAN CELL VOLUME 81.9 fl (80-96); MEAN PLT VOLUME 7.5 fl (7.5-11.1); MONO % 6.4 % (3.8-10.2); NEUT % 75.4 % (42.8-82.8); PLATELET COUNT 146 10^3/uL (134-434); RBC 2.55 M/mm3 (4.00-5.60); RDW 19.6 % (11.9-15.9); WHITE BLOOD COUNT 6.6 K/mm3 (4.0-10.0)
[2023-12-31 09:31] LABS: POTASSIUM 4.6 mmol/L (3.5-5.1)
[2023-12-31 09:38] LABS: ALBUMIN 2.6 g/dl (3.4-5.0); BLOOD UREA NITROGEN 35.5 mg/dL (7-18); CALCIUM 8.7 mg/dL (8.5-10.1)
[2023-12-31 09:41] LABS: CREATININE 1.1 mg/dL (0.55-1.3)
[2023-12-31 09:43] LABS: BILIRUBIN,TOTAL 1.8 mg/dL (0.2-1)
[2023-12-31] MEDS ORDERED: BISACODYL 10 MG SUPP.RECT PR PRN (10:27)
[2023-12-31] MEDS: ACETAMINOPHEN 1000 MG/100 ML BAG IVPB PRN (12:08)
[2023-12-31] MEDS: SERTRALINE HCL 25 MG TABLET (FP) PO ONE (14:23)
[2023-12-31] MEDS: SODIUM PHOSPHATE/NA BIPHOS 133 ML ENEMA RC ONE (17:45)
[2023-12-31] MEDS: INSULIN (LEVEMIR) 100 UNITS/ML UNITS SQ SCH (22:00)
[2024-01-01 08:38] LABS: HEMOGLOBIN 8.4 GM/dL (11.7-16.9); MCH 29.8 pg (25.7-33.7); MCHC 36.8 g/dl (32.0-35.9); MEAN CELL VOLUME 81.1 fl (80-96); MEAN PLT VOLUME 7.1 fl (7.5-11.1); PLATELET COUNT 166 10^3/uL (134-434); RBC 2.84 M/mm3 (4.00-5.60); RDW 19.8 % (11.9-15.9); WHITE BLOOD COUNT 8.9 K/mm3 (4.0-10.0)
[2024-01-01] MEDS: SERTRALINE HCL 50 MG TABLET (FP) PO SCH (10:18)
[2024-01-01] MEDS ORDERED: INSULIN (NOVOLOG) ASPART 100 UNITS/ML 10ML VIAL ONE (21:26)
[2024-01-02 08:54] LABS: HEMATOCRIT 21.6 % (35.4-49); HEMOGLOBIN 7.9 GM/dL (11.7-16.9); MCH 29.8 pg (25.7-33.7); MCHC 36.7 g/dl (32.0-35.9); MEAN CELL VOLUME 81.4 fl (80-96); MEAN PLT VOLUME 7.5 fl (7.5-11.1); PLATELET COUNT 181 10^3/uL (134-434); RBC 2.66 M/mm3 (4.00-5.60); RDW 19.5 % (11.9-15.9)
[2024-01-02 09:09] LABS: POTASSIUM 4.6 mmol/L (3.5-5.1)
[2024-01-02 09:13] LABS: ALBUMIN 3.1 g/dl (3.4-5.0)
[2024-01-02 09:16] LABS: CREATININE 1.5 mg/dL (0.55-1.3)
[2024-01-02 09:17] LABS: TOT PROT 6.9 g/dl (6.4-8.2)
[2024-01-02 09:18] LABS: BILIRUBIN,TOTAL 1.6 mg/dL (0.2-1)
[2024-01-02] MEDS ORDERED: INSULIN (NOVOLOG) ASPART 100 UNITS/ML 10ML VIAL ONE (11:09)
[2024-01-02] MEDS: traMADol HCL 50 MG TABLET PO PRN (11:16)
[2024-01-02] MEDS: INSULIN (LEVEMIR) 100 UNITS/ML UNITS SQ SCH (23:13)
[2024-01-02 23:38] VITALS: RESP 20
[2024-01-03 08:58] LABS: BASO % 1.1 % (0-2.0); EOS % 1.8 % (0-4.5); HEMATOCRIT 23.5 % (35.4-49); HEMOGLOBIN 8.5 GM/dL (11.7-16.9); LYMPH % 18.1 % (8-40); MCH 29.6 pg (25.7-33.7); MCHC 36.1 g/dl (32.0-35.9); MEAN CELL VOLUME 82.1 fl (80-96); MEAN PLT VOLUME 7.4 fl (7.5-11.1); MONO % 5.9 % (3.8-10.2); NEUT % 73.1 % (42.8-82.8); PLATELET COUNT 210 10^3/uL (134-434); RBC 2.86 M/mm3 (4.00-5.60); RDW 19.7 % (11.9-15.9); WHITE BLOOD COUNT 8.5 K/mm3 (4.0-10.0)
[2024-01-03 09:16] LABS: POTASSIUM 5.1 mmol/L (3.5-5.1)
[2024-01-03 09:26] LABS: ALBUMIN 3.3 g/dl (3.4-5.0); BLOOD UREA NITROGEN 74.2 mg/dL (7-18); CALCIUM 9.3 mg/dL (8.5-10.1)
[2024-01-03 09:30] LABS: BILIRUBIN,TOTAL 1.4 mg/dL (0.2-1); TOT PROT 7.2 g/dl (6.4-8.2)
[2024-01-03] MEDS ORDERED: EMPAGLIFLOZIN (JARDIANCE) 25 MG TABLET PO SCH (10:00)
[2024-01-04 08:51] LABS: BASO % 1.1 % (0-2.0); EOS % 1.5 % (0-4.5); HEMOGLOBIN 8.2 GM/dL (11.7-16.9); LYMPH % 16.4 % (8-40); MCH 29.4 pg (25.7-33.7); MCHC 35.7 g/dl (32.0-35.9); MEAN CELL VOLUME 82.5 fl (80-96); MEAN PLT VOLUME 7.5 fl (7.5-11.1); MONO % 5.3 % (3.8-10.2); NEUT % 75.7 % (42.8-82.8); PLATELET COUNT 200 10^3/uL (134-434); RBC 2.78 M/mm3 (4.00-5.60); RDW 20.3 % (11.9-15.9); WHITE BLOOD COUNT 7.2 K/mm3 (4.0-10.0)
[2024-01-04 08:53] LABS: POTASSIUM 4.8 mmol/L (3.5-5.1)
[2024-01-04 09:01] LABS: CALCIUM 8.9 mg/dL (8.5-10.1)
[2024-01-04 09:02] LABS: ALBUMIN 3.3 g/dl (3.4-5.0); BLOOD UREA NITROGEN 92.8 mg/dL (7-18)
[2024-01-04 09:05] LABS: CREATININE 2.2 mg/dL (0.55-1.3)
[2024-01-04 09:07] LABS: BILIRUBIN,TOTAL 1.4 mg/dL (0.2-1); TOT PROT 7.1 g/dl (6.4-8.2)
[2024-01-04] MEDS: PANTOPRAZOLE 40 MG TABLET PO SCH (10:35)
[2024-01-04] MEDS ORDERED: INSULIN (NOVOLOG) ASPART 100 UNITS/ML 10ML VIAL ONE (12:11)
[2024-01-04 14:12] VITALS: BP 106/52; PULSE 77; TEMP 98.1
== END 2024-01-04 16:05 | disposition home or self-care (01) | DRG 580 ==
LOC: JER 15:44 → JERBED 17:49 → J5S 22:16 → J8W 12-31 20:45
PROVIDERS: ADMIT Student in an Organized Health Care Education/Training Program; ATTEND Internal Medicine
PROC: 0KBW0ZZ Excision of Left Foot Muscle, Open Approach (ICD-10-PCS; 2023-12-29)
PROC: 0LBW0ZZ Excision of Left Foot Tendon, Open Approach (ICD-10-PCS; 2023-12-29)
PROC: 0J9R0ZZ Drainage of Left Foot Subcutaneous Tissue and Fascia, Open Approach (ICD-10-PCS; principal; 2023-12-29 11:00)
PROC: 02HV33Z Insertion of Infusion Device into Superior Vena Cava, Percutaneous Approach (ICD-10-PCS; 2023-12-30)
PROC: B518ZZA Fluoroscopy of Superior Vena Cava, Guidance (ICD-10-PCS; 2023-12-30)
DX: L02.612 Cutaneous abscess of left foot (principal); I50.22 Chronic systolic (congestive) heart failure; L97.528 Non-pressure chronic ulcer of other part of left foot with other specified severity; E11.9 Type 2 diabetes mellitus without complications; D55.0 Anemia due to glucose-6-phosphate dehydrogenase [G6PD] deficiency; E11.22 Type 2 diabetes mellitus with diabetic chronic kidney disease; N18.9 Chronic kidney disease, unspecified; E11.621 Type 2 diabetes mellitus with foot ulcer; K59.03 Drug induced constipation; T40.2X5A Adverse effect of other opioids, initial encounter; Z89.422 Acquired absence of other left toe(s)
CPT/HCPCS: 10060; 11042; 36415; 36569; 73718-TC-LT; 74019-TC-FY; 75820-TC-FY; 76705-TC; 80053; 82248; 82550; 82962; 83010; 83540; 83550; 83615; 83735; 84100; 84484; 85025; 85027; 85045; 85610; 86140; 86850; 86900; 86901; 87040; 87070; 87102; 87116; 87205; 87206; 87210; 88304-TC; 93005; 93010; 94760; 99285-25; J0131; J0878

== ENCOUNTER 2024-10-17 11:32 | Inpatient (IN) | payer OTHER ==
[2024-10-17] MEDS ORDERED: morphine SULFATE 4 MG/ML VIAL ONE (12:44)
[2024-10-17] MEDS: morphine CARPU-JECT 4 MG/1 ML DISP.SYRIN IVPUSH ONE (13:11)
[2024-10-17 13:17] LABS: BASO % 0.7 % (0-2.0); EOS % 0.3 % (0-4.5); HEMATOCRIT 14.6 % (35.4-49); LYMPH % 8.6 % (8-40); MCH 28.9 pg (25.7-33.7); MCHC 36.6 g/dl (32.0-35.9); MEAN PLT VOLUME 7.7 fl (7.5-11.1); MONO % 6.5 % (3.8-10.2); NEUT % 83.9 % (42.8-82.8); PLATELET COUNT 191 10^3/uL (134-434); RBC 1.85 M/mm3 (4.00-5.60); RDW 20.2 % (11.9-15.9); WHITE BLOOD COUNT 10.7 K/mm3 (4.0-10.0)
[2024-10-17 13:20] LABS: HEMOGLOBIN 5.4 GM/dL (11.7-16.9)
[2024-10-17 13:27] LABS: INR 1.16 (0.83-1.09); PROTHROMBIN TIME (PATIENT) 12.8 SEC (9.7-13.0)
[2024-10-17 13:50] LABS: CHLORIDE 97 mmol/L (98-107); SODIUM 129 mmol/L (136-145)
[2024-10-17 13:57] LABS: ALBUMIN 2.5 g/dl (3.4-5.0); ANION GAP 7 mmol/L (4-13); BLOOD UREA NITROGEN 34.8 mg/dL (7-18); CALCIUM 8.1 mg/dL (8.5-10.1); CO2 25 mmol/L (21-32)
[2024-10-17 14:00] LABS: SGPT/ALT 13 U/L (13-61)
[2024-10-17 14:01] LABS: CREATININE 1.3 mg/dL (0.55-1.3); SGOT/AST 68 U/L (15-37)
[2024-10-17 14:02] LABS: BILIRUBIN,TOTAL 1.6 mg/dL (0.2-1); TOT PROT 5.7 g/dl (6.4-8.2)
[2024-10-17 14:03] LABS: ALK PHOS 118 U/L (45-117); GLUCOSE,RANDOM 534 mg/dL (74-106)
[2024-10-17] MEDS: SODIUM CHLORIDE 0.9% 500 ML INFUS.BAG IV ONE (14:15)
[2024-10-17 16:24] VITALS: BMI 28.5
[2024-10-17] MEDS: INSULIN ASPART SLIDING SCALE (NOVOLOG) 1 VIAL SQ SCH ×2 (17:23→22:00)
[2024-10-17] MEDS: FUROSEMIDE 40 MG/4 ML INJECTABLE VIAL IVPUSH ONE ×2 (17:32→22:00)
[2024-10-17] MEDS: FUROSEMIDE 40 MG TABLET (FP) PO SCH (18:41)
[2024-10-17] MEDS ORDERED: ACETAMINOPHEN INJECTION 100 ML ONE (21:38)
[2024-10-17] MEDS ORDERED: HEPARIN NA (PORCINE) 5,000 UNITS/ML 1ML VIAL SQ SCH (22:00)
[2024-10-17] MEDS: ACETAMINOPHEN 1000 MG/100 ML BAG IVPB ONE (22:00)
[2024-10-17] MEDS ORDERED: INSULIN (LEVEMIR) 100 UNITS/ML UNITS SQ SCH ×2 (22:00)
[2024-10-17] MEDS: SACUBITRIL/VALSARTAN 24 MG-26 MG TABLET PO SCH (22:18)
[2024-10-17] MEDS: INSULIN (LEVEMIR) 100 UNITS/ML UNITS SQ SCH (22:18)
[2024-10-17] MEDS: ATORVASTATIN CA 20 MG TABLET (FP) PO SCH (22:21)
[2024-10-17] MEDS ORDERED: ONDANSETRON 4 MG/2 ML VIAL IVPUSH PRN (22:21)
[2024-10-18] MEDS: LACTATED RINGERS SOLUTION 1000 ML INFUS.BAG IV ONE (03:15)
[2024-10-18] MEDS: oxyCODONE HCL 5 MG TABLET PO ONE (06:02)
[2024-10-18] MEDS: metoPROLOL SUCCINATE 25 MG TAB.SR.24H (FP) PO SCH (09:58)
[2024-10-18] MEDS: INSULIN ASPART SLIDING SCALE (NOVOLOG) 1 VIAL SQ SCH (11:52)
[2024-10-18 12:29] LABS: BASO % 0.3 % (0-2.0); EOS % 0.5 % (0-4.5); HEMATOCRIT 21.7 % (35.4-49); HEMOGLOBIN 7.7 GM/dL (11.7-16.9); LYMPH % 8.7 % (8-40); MCHC 35.5 g/dl (32.0-35.9); MEAN CELL VOLUME 78.9 fl (80-96); MEAN PLT VOLUME 7.5 fl (7.5-11.1); MONO % 5.2 % (3.8-10.2); NEUT % 85.3 % (42.8-82.8); PLATELET COUNT 195 10^3/uL (134-434); RBC 2.75 M/mm3 (4.00-5.60); RDW 18.2 % (11.9-15.9); WHITE BLOOD COUNT 10.1 K/mm3 (4.0-10.0)
[2024-10-18] MEDS ORDERED: ALBUTEROL SO4 2.5/IPRATROPIUM 0.5 INH SOL 3 ML VIAL.NEB. NEB PRN (13:09)
[2024-10-18 13:11] LABS: POTASSIUM 4.1 mmol/L (3.5-5.1)
[2024-10-18 13:15] LABS: ALBUMIN 2.2 g/dl (3.4-5.0); BLOOD UREA NITROGEN 29.2 mg/dL (7-18)
[2024-10-18 13:18] LABS: CREATININE 1.1 mg/dL (0.55-1.3)
[2024-10-18 13:20] LABS: BILIRUBIN,TOTAL 1.9 mg/dL (0.2-1); TOT PROT 5.4 g/dl (6.4-8.2)
[2024-10-18] MEDS: oxyCODONE HCL 5 MG TABLET PO PRN (17:56)
[2024-10-18] MEDS: INSULIN (LEVEMIR) 100 UNITS/ML UNITS SQ SCH (21:57)
[2024-10-19] MEDS: ACETAMINOPHEN 1000 MG/100 ML BAG IVPB ONE (04:33)
[2024-10-19 09:15] LABS: BASO % 0.4 % (0-2.0); EOS % 0.8 % (0-4.5); HEMOGLOBIN 7.8 GM/dL (11.7-16.9); LYMPH % 11.9 % (8-40); MCH 28.3 pg (25.7-33.7); MCHC 35.6 g/dl (32.0-35.9); MEAN CELL VOLUME 79.4 fl (80-96); MEAN PLT VOLUME 7.5 fl (7.5-11.1); MONO % 5.3 % (3.8-10.2); NEUT % 81.6 % (42.8-82.8); PLATELET COUNT 210 10^3/uL (134-434); RBC 2.78 M/mm3 (4.00-5.60); RDW 18.6 % (11.9-15.9); WHITE BLOOD COUNT 9.8 K/mm3 (4.0-10.0)
[2024-10-19 09:40] LABS: POTASSIUM 4.3 mmol/L (3.5-5.1)
[2024-10-19 09:45] LABS: ALBUMIN 2.2 g/dl (3.4-5.0); BLOOD UREA NITROGEN 34.7 mg/dL (7-18)
[2024-10-19 09:48] LABS: CREATININE 1.1 mg/dL (0.55-1.3)
[2024-10-19 09:49] LABS: TOT PROT 5.6 g/dl (6.4-8.2)
[2024-10-19] MEDS: VANCOMYCIN 1 GM PREMIX (F) 1 GM/200 ML BAG IVPB ONE (13:51)
[2024-10-19] MEDS: HEPARIN NA (PORCINE) 5,000 UNITS/ML 1ML VIAL SQ SCH (21:12)
[2024-10-19] MEDS: INSULIN (LEVEMIR) 100 UNITS/ML UNITS SQ SCH (21:13)
[2024-10-20] MEDS: ACETAMINOPHEN 1000 MG/100 ML BAG IVPB ONE (01:08)
[2024-10-20 10:07] LABS: BASO % 0.5 % (0-2.0); EOS % 1.3 % (0-4.5); HEMATOCRIT 20.2 % (35.4-49); HEMOGLOBIN 7.2 GM/dL (11.7-16.9); LYMPH % 12.1 % (8-40); MCH 28.2 pg (25.7-33.7); MCHC 35.9 g/dl (32.0-35.9); MEAN CELL VOLUME 78.4 fl (80-96); MEAN PLT VOLUME 7.4 fl (7.5-11.1); MONO % 7.1 % (3.8-10.2); PLATELET COUNT 200 10^3/uL (134-434); RBC 2.57 M/mm3 (4.00-5.60); RDW 18.8 % (11.9-15.9); WHITE BLOOD COUNT 8.1 K/mm3 (4.0-10.0)
[2024-10-20 10:24] LABS: POTASSIUM 4.4 mmol/L (3.5-5.1)
[2024-10-20 10:28] LABS: ALBUMIN 2.1 g/dl (3.4-5.0); BLOOD UREA NITROGEN 36.1 mg/dL (7-18)
[2024-10-20 10:31] LABS: CREATININE 1.1 mg/dL (0.55-1.3)
[2024-10-20 10:33] LABS: BILIRUBIN,TOTAL 1.5 mg/dL (0.2-1); TOT PROT 5.2 g/dl (6.4-8.2)
[2024-10-20] MEDS: CEFEPIME HCL/D5W 2 GM/50 ML BAG IVPB SCH (13:21)
[2024-10-20] MEDS ORDERED: CEFEPIME HCL 2 GM VIAL (RESTRICTED TO ID) IVPB SCH (18:00)
[2024-10-20] MEDS: VANCOMYCIN 1 GM PREMIX (F) 1 GM/200 ML BAG IVPB SCH (19:11)
[2024-10-21 09:33] LABS: BASO % 0.8 % (0-2.0); EOS % 1.5 % (0-4.5); HEMOGLOBIN 9.8 GM/dL (11.7-16.9); LYMPH % 16.1 % (8-40); MCH 26.7 pg (25.7-33.7); MCHC 33.6 g/dl (32.0-35.9); MEAN CELL VOLUME 79.6 fl (80-96); MEAN PLT VOLUME 7.6 fl (7.5-11.1); MONO % 6.2 % (3.8-10.2); NEUT % 75.4 % (42.8-82.8); PLATELET COUNT 259 10^3/uL (134-434); RBC 3.65 M/mm3 (4.00-5.60); RDW 18.9 % (11.9-15.9)
[2024-10-21 11:16] LABS: POTASSIUM 4.2 mmol/L (3.5-5.1)
[2024-10-21 11:26] LABS: CALCIUM 8.4 mg/dL (8.5-10.1)
[2024-10-21 11:30] LABS: CREATININE 1.1 mg/dL (0.55-1.3)
[2024-10-21 11:31] LABS: ALBUMIN 2.6 g/dl (3.4-5.0)
[2024-10-21 11:32] LABS: BILIRUBIN,TOTAL 1.6 mg/dL (0.2-1); TOT PROT 6.4 g/dl (6.4-8.2)
[2024-10-21] MEDS ORDERED: CEFEPIME HCL/D5W 2 GM/50 ML BAG IVPB SCH (18:00)
[2024-10-21] MEDS: CEFEPIME 1 GM in DEXTROSE 5%-WATER 100 ML IVPB SCH (18:12)
[2024-10-21] MEDS: oxyCODONE HCL 5 MG TABLET PO ONE (23:46)
[2024-10-22] MEDS: oxyCODONE HCL 5 MG TABLET PO ONE (06:20)
[2024-10-22] MEDS: INSULIN (LEVEMIR) 100 UNITS/ML UNITS SQ SCH (06:31)
[2024-10-22] MEDS: oxyCODONE HCL 5 MG TABLET PO PRN (09:59)
[2024-10-22] MEDS ORDERED: CEFEPIME HCL 1 GM VIAL (RESTRICTED TO ID) ONE (17:44)
[2024-10-23] MEDS: VANCOMYCIN/WATER FOR INJ (PEG) 1 GM/200 ML BAG IVPB SCH (05:51)
[2024-10-23] MEDS: INSULIN (LEVEMIR) 100 UNITS/ML UNITS SQ SCH (06:02)
[2024-10-23 08:41] LABS: BASO % 0.9 % (0-2.0); EOS % 1.9 % (0-4.5); HEMATOCRIT 23.3 % (35.4-49); LYMPH % 13.5 % (8-40); MCHC 34.2 g/dl (32.0-35.9); MEAN CELL VOLUME 78.8 fl (80-96); MEAN PLT VOLUME 7.2 fl (7.5-11.1); MONO % 6.7 % (3.8-10.2); PLATELET COUNT 211 10^3/uL (134-434); RBC 2.95 M/mm3 (4.00-5.60); RDW 18.8 % (11.9-15.9); WHITE BLOOD COUNT 8.5 K/mm3 (4.0-10.0)
[2024-10-23 08:55] LABS: POTASSIUM 4.7 mmol/L (3.5-5.1)
[2024-10-23 08:56] LABS: ALBUMIN 2.1 g/dl (3.4-5.0)
[2024-10-23 08:57] LABS: BLOOD UREA NITROGEN 35.2 mg/dL (7-18)
[2024-10-23 09:01] LABS: BILIRUBIN,TOTAL 1.2 mg/dL (0.2-1)
[2024-10-23 09:05] LABS: TOT PROT 5.5 g/dl (6.4-8.2)
[2024-10-23 09:06] LABS: CREATININE 1.1 mg/dL (0.55-1.3)
[2024-10-23] MEDS: CEFEPIME HCL/D5W 1 GM/50 ML BAG IVPB SCH (10:16)
[2024-10-23] MEDS ORDERED: ALPRAZolam 0.25 MG TABLET PO PRN (11:59)
[2024-10-24 11:07] LABS: BASO % 0.7 % (0-2.0); HEMATOCRIT 28.5 % (35.4-49); HEMOGLOBIN 9.8 GM/dL (11.7-16.9); LYMPH % 15.5 % (8-40); MCHC 34.3 g/dl (32.0-35.9); MEAN CELL VOLUME 78.8 fl (80-96); MEAN PLT VOLUME 7.4 fl (7.5-11.1); MONO % 6.2 % (3.8-10.2); NEUT % 75.6 % (42.8-82.8); PLATELET COUNT 236 10^3/uL (134-434); RBC 3.62 M/mm3 (4.00-5.60); WHITE BLOOD COUNT 10.7 K/mm3 (4.0-10.0)
[2024-10-24 11:18] LABS: POTASSIUM 4.7 mmol/L (3.5-5.1)
[2024-10-24 11:32] LABS: BLOOD UREA NITROGEN 39.6 mg/dL (7-18); CALCIUM 8.7 mg/dL (8.5-10.1)
[2024-10-24 11:35] LABS: CREATININE 1.2 mg/dL (0.55-1.3)
[2024-10-24 11:36] LABS: BILIRUBIN,TOTAL 1.5 mg/dL (0.2-1)
[2024-10-24 11:37] LABS: TOT PROT 6.6 g/dl (6.4-8.2)
[2024-10-24 11:39] LABS: ALBUMIN 2.6 g/dl (3.4-5.0)
[2024-10-24] MEDS ORDERED: LIDOCAINE HCL 2% (20ML MULTI-DOSE VIAL) ONE (15:22)
[2024-10-24] MEDS ORDERED: VANCOMYCIN 1,000 MG VIAL (RESTRICTED TO ID ONLY) ONE (15:46)
[2024-10-24] MEDS ORDERED: BACITRACIN ZINC 15 GM TUBE TOPICAL OINTMENT ONE (15:47)
[2024-10-24] MEDS ORDERED: GENTAMICIN SO4 80 MG/2 ML VIAL ONE (15:47)
[2024-10-24] MEDS ORDERED: MIDAZOLAM HCL 2 MG/2 ML SINGLE DOSE VIAL ONE (16:41)
[2024-10-24] MEDS ORDERED: PROPOFOL 40 ML ONE (16:41)
[2024-10-24] MEDS ORDERED: oxyCODONE HCL 5 MG TABLET PO PRN (16:46)
[2024-10-24] MEDS ORDERED: ONDANSETRON 4 MG/2 ML VIAL IVPUSH PRN ×2 (16:46→18:23)
[2024-10-24] MEDS ORDERED: LACTATED RINGERS SOLUTION 1,000 ML IV SCH ×2 (17:00→18:23)
[2024-10-24] MEDS: LIDOCAINE HCL 2% (50ML VIAL) NR ONE (17:05)
[2024-10-24] MEDS: CEFEPIME HCL/D5W 1 GM/50 ML BAG IVPB SCH (21:50)
[2024-10-24] MEDS: ATORVASTATIN CA 20 MG TABLET (FP) PO SCH (21:51)
[2024-10-24] MEDS: SACUBITRIL/VALSARTAN 24 MG-26 MG TABLET PO SCH (21:52)
[2024-10-24] MEDS: INSULIN (LEVEMIR) 100 UNITS/ML UNITS SQ SCH (22:41)
[2024-10-24] MEDS: INSULIN ASPART SLIDING SCALE (NOVOLOG) 1 VIAL SQ SCH (22:42)
[2024-10-24] MEDS: oxyCODONE HCL 5 MG TABLET PO PRN (23:25)
[2024-10-24] MEDS: VANCOMYCIN 1 GM PREMIX (F) 1 GM/200 ML BAG IVPB SCH (23:26)
[2024-10-25] MEDS: INSULIN (LEVEMIR) 100 UNITS/ML UNITS SQ SCH (06:36)
[2024-10-25] MEDS: metoPROLOL SUCCINATE 25 MG TAB.SR.24H (FP) PO SCH (10:15)
[2024-10-25] MEDS: FUROSEMIDE 40 MG TABLET (FP) PO SCH (10:15)
[2024-10-25] MEDS: HEPARIN NA (PORCINE) 5,000 UNITS/ML 1ML VIAL SQ SCH (10:15)
[2024-10-25] MEDS: ONDANSETRON 4 MG/2 ML VIAL IVPUSH PRN (17:52)
[2024-10-25] MEDS: DULoxetine HCL 30 MG CAPSULE.DR PO ONE (17:58)
[2024-10-25] MEDS: ONDANSETRON 4 MG/2 ML VIAL IVPUSH ONE (22:09)
[2024-10-25] MEDS: ALPRAZolam 0.25 MG TABLET PO PRN (22:10)
[2024-10-26] MEDS ORDERED: ONDANSETRON 4 MG/2 ML VIAL ONE (05:23)
[2024-10-26] MEDS: ONDANSETRON 4 MG/2 ML VIAL IVPUSH ONE (05:25)
[2024-10-26] MEDS ORDERED: SENNOSIDES 8.6MG TABLET (FP) PO PRN (09:46)
[2024-10-26 09:48] LABS: BASO % 1.2 % (0-2.0); EOS % 1.7 % (0-4.5); HEMATOCRIT 19.8 % (35.4-49); LYMPH % 8.6 % (8-40); MCH 26.9 pg (25.7-33.7); MCHC 34.6 g/dl (32.0-35.9); MEAN CELL VOLUME 77.8 fl (80-96); MEAN PLT VOLUME 7.6 fl (7.5-11.1); MONO % 11.4 % (3.8-10.2); NEUT % 77.1 % (42.8-82.8); PLATELET COUNT 180 10^3/uL (134-434); RBC 2.54 M/mm3 (4.00-5.60); RDW 18.9 % (11.9-15.9); WHITE BLOOD COUNT 4.5 K/mm3 (4.0-10.0)
[2024-10-26] MEDS: DULoxetine HCL 30 MG CAPSULE.DR PO SCH (09:51)
[2024-10-26 10:03] LABS: HEMOGLOBIN 6.8 GM/dL (11.7-16.9)
[2024-10-26 10:11] LABS: POTASSIUM 4.4 mmol/L (3.5-5.1)
[2024-10-26 10:15] LABS: ALBUMIN 2.2 g/dl (3.4-5.0); BLOOD UREA NITROGEN 29.8 mg/dL (7-18)
[2024-10-26 10:18] LABS: CREATININE 1.1 mg/dL (0.55-1.3)
[2024-10-26 10:20] LABS: BILIRUBIN,TOTAL 1.1 mg/dL (0.2-1); TOT PROT 5.8 g/dl (6.4-8.2)
[2024-10-26] MEDS: POLYETHYLENE GLYCOL (HEALTHYLAX) 3350 17 GM PACKET PO SCH (10:47)
[2024-10-26] MEDS: FUROSEMIDE 40 MG/4 ML INJECTABLE VIAL IVPUSH SCH (17:11)
[2024-10-26] MEDS: oxyCODONE HCL 5 MG TABLET PO PRN (18:21)
[2024-10-26] MEDS: ACETAMINOPHEN 325 MG TABLET (FP) PO PRN (21:25)
[2024-10-26] MEDS: FAMOTIDINE 20 MG/50 ML IVPB 20 MG/50 ML MG IVPB ONE (22:22)
[2024-10-27 08:43] LABS: BASO % 0.9 % (0-2.0); EOS % 1.1 % (0-4.5); HEMATOCRIT 28.3 % (35.4-49); HEMOGLOBIN 9.7 GM/dL (11.7-16.9); LYMPH % 12.2 % (8-40); MCH 27.3 pg (25.7-33.7); MCHC 34.4 g/dl (32.0-35.9); MEAN CELL VOLUME 79.5 fl (80-96); MEAN PLT VOLUME 7.4 fl (7.5-11.1); MONO % 11.1 % (3.8-10.2); NEUT % 74.7 % (42.8-82.8); PLATELET COUNT 190 10^3/uL (134-434); RBC 3.55 M/mm3 (4.00-5.60); RDW 19.2 % (11.9-15.9); WHITE BLOOD COUNT 5.4 K/mm3 (4.0-10.0)
[2024-10-27 08:51] LABS: POTASSIUM 4.5 mmol/L (3.5-5.1)
[2024-10-27 09:04] LABS: BLOOD UREA NITROGEN 27.4 mg/dL (7-18); CALCIUM 8.5 mg/dL (8.5-10.1)
[2024-10-27 09:05] LABS: ALBUMIN 2.4 g/dl (3.4-5.0)
[2024-10-27 09:08] LABS: CREATININE 1.1 mg/dL (0.55-1.3)
[2024-10-27 09:09] LABS: BILIRUBIN,TOTAL 1.8 mg/dL (0.2-1); TOT PROT 6.5 g/dl (6.4-8.2)
[2024-10-27] MEDS: DOCUSATE SODIUM 100 MG CAPSULE (FP) PO SCH (15:50)
[2024-10-27] MEDS: ALBUTEROL SO4 2.5/IPRATROPIUM 0.5 INH SOL 3 ML VIAL.NEB. NEB PRN (23:51)
[2024-10-28] MEDS: OXYMETAZOLINE 0.05% NASAL SOLUTION 15 ML BOTTLE NS SCH (00:16)
[2024-10-28 11:07] LABS: BASO % 0.8 % (0-2.0); EOS % 2.4 % (0-4.5); HEMATOCRIT 24.8 % (35.4-49); HEMOGLOBIN 8.7 GM/dL (11.7-16.9); LYMPH % 10.8 % (8-40); MCH 27.3 pg (25.7-33.7); MCHC 34.9 g/dl (32.0-35.9); MEAN CELL VOLUME 78.3 fl (80-96); MEAN PLT VOLUME 6.9 fl (7.5-11.1); MONO % 12.9 % (3.8-10.2); NEUT % 73.1 % (42.8-82.8); PLATELET COUNT 182 10^3/uL (134-434); RBC 3.17 M/mm3 (4.00-5.60); RDW 19.5 % (11.9-15.9)
[2024-10-28 11:27] LABS: POTASSIUM 4.4 mmol/L (3.5-5.1)
[2024-10-28 11:29] LABS: CALCIUM 7.9 mg/dL (8.5-10.1)
[2024-10-28 11:30] LABS: ALBUMIN 2.2 g/dl (3.4-5.0); BLOOD UREA NITROGEN 29.1 mg/dL (7-18)
[2024-10-28 11:35] LABS: BILIRUBIN,TOTAL 0.8 mg/dL (0.2-1); TOT PROT 5.9 g/dl (6.4-8.2)
[2024-10-28] MEDS: ONDANSETRON 4 MG/2 ML VIAL IVPUSH ONE (20:22)
[2024-10-28] MEDS: INSULIN GLARGINE (LANTUS) 100 UNITS/ML UNITS SQ SCH (22:43)
[2024-10-29] MEDS: INSULIN GLARGINE (LANTUS) 100 UNITS/ML UNITS SQ SCH (06:11)
[2024-10-29 06:55] VITALS: RESP 18
[2024-10-29 11:13] LABS: BASO % 0.7 % (0-2.0); HEMATOCRIT 28.6 % (35.4-49); HEMOGLOBIN 9.6 GM/dL (11.7-16.9); LYMPH % 8.1 % (8-40); MCH 26.9 pg (25.7-33.7); MCHC 33.6 g/dl (32.0-35.9); MEAN CELL VOLUME 80.1 fl (80-96); MEAN PLT VOLUME 7.2 fl (7.5-11.1); MONO % 8.8 % (3.8-10.2); NEUT % 81.4 % (42.8-82.8); PLATELET COUNT 207 10^3/uL (134-434); RBC 3.57 M/mm3 (4.00-5.60); RDW 19.7 % (11.9-15.9); WHITE BLOOD COUNT 5.9 K/mm3 (4.0-10.0)
[2024-10-30] MEDS: guaiFENesin/D-M SUGAR-FREE/ACLHOL-FREE 5 ML UNIT DOSE PO PRN (07:01)
[2024-10-30] MEDS ORDERED: INSULIN GLARGINE (LANTUS) 100 UNITS/ML UNITS SQ ONE (08:15)
[2024-10-30] MEDS ORDERED: VANCOMYCIN/WATER FOR INJ (PEG) 1 GM/200 ML BAG IVPB SCH (10:58)
[2024-10-30 11:29] LABS: BASO % 0.3 % (0-2.0); EOS % 1.1 % (0-4.5); HEMATOCRIT 26.2 % (35.4-49); HEMOGLOBIN 9.1 GM/dL (11.7-16.9); LYMPH % 16.5 % (8-40); MCH 27.2 pg (25.7-33.7); MCHC 34.6 g/dl (32.0-35.9); MEAN CELL VOLUME 78.7 fl (80-96); MONO % 8.9 % (3.8-10.2); NEUT % 73.2 % (42.8-82.8); PLATELET COUNT 176 10^3/uL (134-434); RBC 3.33 M/mm3 (4.00-5.60); RDW 20.5 % (11.9-15.9); WHITE BLOOD COUNT 4.1 K/mm3 (4.0-10.0)
[2024-10-30 11:49] LABS: POTASSIUM 4.1 mmol/L (3.5-5.1)
[2024-10-30 11:56] LABS: ALBUMIN 2.4 g/dl (3.4-5.0); BLOOD UREA NITROGEN 21.7 mg/dL (7-18); CALCIUM 8.2 mg/dL (8.5-10.1)
[2024-10-30 12:01] LABS: TOT PROT 6.4 g/dl (6.4-8.2)
[2024-10-30 12:16] LABS: ANISOCYTOSIS 2+; MACROCYTOSIS 1+
[2024-10-31 13:31] LABS: ABSOLUTE IMMATURE GRANULOCYTES 0.01 x10^3/uL (0.0-0.031); BASOPHILS # 0.02 x10^3/uL (0.01-0.08); EOSINOPHIL % 0.9 % (0.8-7.0); EOSINOPHILS # 0.03 x10^3/uL (0.04-0.54); HEMATOCRIT 24.6 % (40.1-51.0); HEMOGLOBIN 7.9 g/dL (13.7-17.5); MCHC 32.1 g/dl (32.3-36.5); MEAN PLT VOLUME 9.4 fl (9.4-12.4); MONOCYTE # 0.28 x10^3/uL (0.30-0.82); MONOCYTE % 8.4 % (5.3-12.2); PLATELET COUNT 166 x10^3/uL (163-337); RDW 20.1 % (12.2-16.1)
[2024-10-31] MEDS: DALBAVANCIN HCL 1,500 MG in DEXTROSE 5%-WATER - 500 ML IVPB ONE (15:04)
[2024-11-01] MEDS: FUROSEMIDE 40 MG/4 ML INJECTABLE VIAL IVPUSH ONE (00:16)
[2024-11-01 09:13] LABS: ABSOLUTE IMMATURE GRANULOCYTES 0.01 x10^3/uL (0.0-0.031); BASOPHILS # 0.02 x10^3/uL (0.01-0.08); EOSINOPHIL % 1.3 % (0.8-7.0); EOSINOPHILS # 0.05 x10^3/uL (0.04-0.54); HEMATOCRIT 27.2 % (40.1-51.0); HEMOGLOBIN 8.7 g/dL (13.7-17.5); MEAN CELL VOLUME 81.9 fl (79.0-92.2); MEAN PLT VOLUME 9.4 fl (9.4-12.4); MONOCYTE # 0.28 x10^3/uL (0.30-0.82); MONOCYTE % 7.5 % (5.3-12.2); PLATELET COUNT 149 x10^3/uL (163-337); RDW 19.9 % (12.2-16.1)
[2024-11-01] MEDS: ONDANSETRON 4 MG/2 ML VIAL IVPUSH ONE (09:18)
[2024-11-01] MEDS ORDERED: ONDANSETRON 4 MG/2 ML VIAL IVPUSH PRN (11:56)
[2024-11-01] MEDS: PANTOPRAZOLE SODIUM 40 MG VIAL IVPUSH ONE (12:07)
[2024-11-01 15:08] VITALS: BP 161/79; PULSE 74; TEMP 97.9
== END 2024-11-01 17:21 | disposition home health service (06) | DRG 305 ==
LOC: JER 11:32 → JERBED 13:39 → J8W 15:18
PROVIDERS: ADMIT Internal Medicine; ATTEND Internal Medicine
PROC: 30233N1 Transfusion of Nonautologous Red Blood Cells into Peripheral Vein, Percutaneous Approach (ICD-10-PCS; 2024-10-17)
PROC: 0KBW0ZZ Excision of Left Foot Muscle, Open Approach (ICD-10-PCS; principal; 2024-10-25)
PROC: 0Y6U0Z3 Detachment at Left 3rd Toe, Low, Open Approach (ICD-10-PCS; 2024-10-25)
PROC: 0Y6M0ZB Detachment at Right Foot, Partial 2nd Ray, Open Approach (ICD-10-PCS; 2024-10-25)
PROC: 0Y6M0ZC Detachment at Right Foot, Partial 3rd Ray, Open Approach (ICD-10-PCS; 2024-10-25)
PROC: 0Y6M0ZD Detachment at Right Foot, Partial 4th Ray, Open Approach (ICD-10-PCS; 2024-10-25)
PROC: 0Y6M0ZF Detachment at Right Foot, Partial 5th Ray, Open Approach (ICD-10-PCS; 2024-10-25)
DX: E11.69 Type 2 diabetes mellitus with other specified complication (principal); E11.621 Type 2 diabetes mellitus with foot ulcer; L97.528 Non-pressure chronic ulcer of other part of left foot with other specified severity; L97.518 Non-pressure chronic ulcer of other part of right foot with other specified severity; K59.00 Constipation, unspecified; K21.9 Gastro-esophageal reflux disease without esophagitis; K57.90 Diverticulosis of intestine, part unspecified, without perforation or abscess without bleeding; K44.9 Diaphragmatic hernia without obstruction or gangrene; E11.43 Type 2 diabetes mellitus with diabetic autonomic (poly)neuropathy; E11.51 Type 2 diabetes mellitus with diabetic peripheral angiopathy without gangrene; K31.84 Gastroparesis; D55.0 Anemia due to glucose-6-phosphate dehydrogenase [G6PD] deficiency; I13.0 Hypertensive heart and chronic kidney disease with heart failure and stage 1 through stage 4 chronic kidney disease, or unspecified chronic kidney disease; E11.22 Type 2 diabetes mellitus with diabetic chronic kidney disease; N18.9 Chronic kidney disease, unspecified; I50.22 Chronic systolic (congestive) heart failure; D63.1 Anemia in chronic kidney disease; M86.8X7 Other osteomyelitis, ankle and foot; B95.2 Enterococcus as the cause of diseases classified elsewhere; B95.4 Other streptococcus as the cause of diseases classified elsewhere; B95.62 Methicillin resistant Staphylococcus aureus infection as the cause of diseases classified elsewhere; B96.89 Other specified bacterial agents as the cause of diseases classified elsewhere; Z88.0 Allergy status to penicillin
CPT/HCPCS: 0241U-QW; 36415; 36430; 36511; 71045-TC-FY; 73630-TC-LT; 73630-TC-RT-FY; 73718-TC-LT; 73718-TC-RT; 74019-TC-FY; 80053; 82962; 83036; 83880; 84484; 85025; 85610; 85730; 86140; 86850; 86900; 86901; 86922; 87040; 87070; 87075; 87186; 87205; 88305-TC; 88311-TC; 93005; 93010; 93922; 93925-TC; 93970-TC; 94010; 94640; 94760; 99285-25; G0463-25; G0480; J0131; J1644; P9038; P9058

== ENCOUNTER 2024-11-02 12:29 | Day surgery (SDC) | payer OTHER ==
[2024-11-02 13:47] LABS: HEMATOCRIT 33.3 % (40.1-51.0); HEMOGLOBIN 10.8 g/dL (13.7-17.5); MCHC 32.4 g/dl (32.3-36.5); MEAN CELL VOLUME 82.2 fl (79.0-92.2)
[2024-11-02] MEDS: DALBAVANCIN HCL 1,500 MG in DEXTROSE 5%-WATER - 500 ML IVPB ONE (13:55)
[2024-11-02 14:05] LABS: PLATELET COUNT # 170 x10^3/uL (163-337)
[2024-11-02 14:10] LABS: ALBUMIN 3.2 g/dl (3.4-5.0); CALCIUM 8.4 mg/dl (8.5-10.1); CREATININE 1.1 mg/dl (0.6-1.3); POTASSIUM 4.7 mmol/L (3.5-5.1); TOT PROT 6.8 g/dl (6.4-8.2)
[2024-11-02 14:37] VITALS: BP 174/76; PULSE 60; RESP 18; TEMP 98.6
== END 2024-11-02 14:35 | disposition home or self-care (01) ==
LOC: FINFUSION 12:29 → FM/S 12:31 → FINFUSION 14:35
PROVIDERS: ATTEND Internal Medicine Infectious Disease
PROC: 3E033GC Introduction of Other Therapeutic Substance into Peripheral Vein, Percutaneous Approach (ICD-10-PCS; principal; 2024-11-02)
DX: M86.9 Osteomyelitis, unspecified (principal)
CPT/HCPCS: 36415; 80053; 85027; 96365; 96366; J0875

== ENCOUNTER 2024-11-09 12:49 | Day surgery (SDC) | payer OTHER ==
[2024-11-09 13:11] VITALS: RESP 16; TEMP 97.9
[2024-11-09] MEDS: DALBAVANCIN HCL 1,500 MG in DEXTROSE 5%-WATER - 500 ML IVPB ONE (13:30)
[2024-11-09 15:54] VITALS: BP 140/79; PULSE 71
== END 2024-11-09 15:55 | disposition home or self-care (01) ==
LOC: FINFUSION 12:49 → FM/S 12:49 → FINFUSION 15:55
PROVIDERS: ATTEND Internal Medicine Infectious Disease
DX: M86.9 Osteomyelitis, unspecified (principal)
CPT/HCPCS: 96365; J0875

== ENCOUNTER 2025-03-14 11:09 | Inpatient (IN) | payer OTHER ==
[2025-03-14 12:27] VITALS: BMI 27.3
[2025-03-14 14:36] LABS: ABSOLUTE IMMATURE GRANULOCYTES 0.03 x10^3/uL (0.0-0.031); BASOPHILS # 0.06 x10^3/uL (0.01-0.08); EOSINOPHIL % 1.8 % (0.8-7.0); EOSINOPHILS # 0.14 x10^3/uL (0.04-0.54); MCHC 31.9 g/dl (32.3-36.5); MEAN CELL VOLUME 85.3 fl (79.0-92.2); MEAN PLT VOLUME 9.5 fl (9.4-12.4); MONOCYTE # 0.50 x10^3/uL (0.30-0.82); MONOCYTE % 6.3 % (5.3-12.2); RDW 20.7 % (12.2-16.1)
[2025-03-14 15:34] LABS: CO2 28.0 mmol/L (21-32)
[2025-03-14 15:36] LABS: GLUCOSE,RANDOM 223.0 mg/dL (74-106)
[2025-03-14 15:37] LABS: SGOT/AST 30.0 U/L (15-37); SGPT/ALT 18.0 U/L (13-61)
[2025-03-14 15:39] LABS: CREATININE 1.2 mg/dL (0.55-1.3); TOT PROT 6.0 g/dl (6.4-8.2)
[2025-03-14 15:41] LABS: ALK PHOS 208.0 U/L (45-117)
[2025-03-14] MEDS ORDERED: ACETAMINOPHEN INJECTION 100 ML ONE (17:04)
[2025-03-14] MEDS: ACETAMINOPHEN 1000 MG/100 ML BAG IVPB ONE (17:34)
[2025-03-14 20:14] LABS: HCV DIAGNOSTIC IN-HOUSE W/RFLX NON-REACTIVE (NONREACTIVE); HIV INTERPRETATION NEGATIVE (NEGATIVE)
[2025-03-14] MEDS: INSULIN GLARGINE (LANTUS) 100 UNITS/ML UNITS SQ SCH (22:20)
[2025-03-14] MEDS: INSULIN ASPART SLIDING SCALE (NOVOLOG) 1 VIAL SQ SCH (22:21)
[2025-03-14] MEDS: FERROUS SO4 325 MG TABLET (FP) PO SCH (22:23)
[2025-03-14] MEDS: DOCUSATE SODIUM 100 MG CAPSULE (FP) PO SCH (22:23)
[2025-03-14] MEDS: ATORVASTATIN CA 80 MG TABLET (FP) PO SCH (22:24)
[2025-03-14] MEDS: FUROSEMIDE 40 MG TABLET (FP) PO SCH (22:24)
[2025-03-14] MEDS: HEPARIN NA (PORCINE) 5,000 UNITS/ML 1ML VIAL SQ SCH (22:27)
[2025-03-14] MEDS: ACETAMINOPHEN 325 MG TABLET (FP) PO PRN (23:34)
[2025-03-14] MEDS: MELATONIN 5 MG TABLETS PO PRN (23:35)
[2025-03-15 07:21] LABS: ABSOLUTE IMMATURE GRANULOCYTES 0.05 x10^3/uL (0.0-0.031); BASOPHILS # 0.06 x10^3/uL (0.01-0.08); EOSINOPHIL % 2.2 % (0.8-7.0); EOSINOPHILS # 0.14 x10^3/uL (0.04-0.54); MCHC 32.0 g/dl (32.3-36.5); MEAN CELL VOLUME 85.6 fl (79.0-92.2); MEAN PLT VOLUME 9.7 fl (9.4-12.4); MONOCYTE # 0.41 x10^3/uL (0.30-0.82); MONOCYTE % 6.5 % (5.3-12.2); RDW 20.8 % (12.2-16.1)
[2025-03-15] MEDS: INSULIN GLARGINE (LANTUS) 100 UNITS/ML UNITS SQ SCH (07:23)
[2025-03-15 08:21] LABS: CO2 27.0 mmol/L (21-32); GLUCOSE,RANDOM 107.0 mg/dL (74-106)
[2025-03-15 08:25] LABS: CREATININE 1.2 mg/dL (0.55-1.3); SGOT/AST 36.0 U/L (15-37); SGPT/ALT 19.0 U/L (13-61)
[2025-03-15 08:27] LABS: ALK PHOS 203.0 U/L (45-117); TOT PROT 5.9 g/dl (6.4-8.2)
[2025-03-15] MEDS: ACETAMINOPHEN 1000 MG/100 ML BAG IVPB PRN (09:54)
[2025-03-15] MEDS: IRON SUCROSE INJECTION 200 MG in SODIUM CHLORIDE 100 ML IVPB ONE (10:56)
[2025-03-15 10:57] LABS: IRON SERUM 95.0 ug/dL (50-175)
[2025-03-15] MEDS: VANCOMYCIN/WATER FOR INJ (PEG) 1,000 MG/200 ML BAG IVPB SCH (18:41)
[2025-03-15] MEDS: CEFTRIAXONE 2 GM in DEXTROSE 5%-WATER 100 ML IVPB SCH (18:41)
[2025-03-15] MEDS: SENNOSIDES 8.6MG TABLET (FP) PO PRN (21:49)
[2025-03-16] MEDS: ONDANSETRON 4 MG/2 ML VIAL IVPUSH ONE (00:49)
[2025-03-16 11:29] LABS: ABSOLUTE IMMATURE GRANULOCYTES 0.05 x10^3/uL (0.0-0.031); BASOPHILS # 0.08 x10^3/uL (0.01-0.08); EOSINOPHIL % 1.4 % (0.8-7.0); EOSINOPHILS # 0.12 x10^3/uL (0.04-0.54); MCHC 32.2 g/dl (32.3-36.5); MEAN CELL VOLUME 84.5 fl (79.0-92.2); MEAN PLT VOLUME 9.7 fl (9.4-12.4); MONOCYTE # 0.46 x10^3/uL (0.30-0.82); MONOCYTE % 5.4 % (5.3-12.2); RDW 19.9 % (12.2-16.1)
[2025-03-16] MEDS ORDERED: INSULIN ASPART SLIDING SCALE (NOVOLOG) 1 VIAL SQ ONE (12:17)
[2025-03-17] MEDS: ONDANSETRON 4 MG/2 ML VIAL IVPUSH PRN (10:01)
[2025-03-17] MEDS: SACUBITRIL/VALSARTAN 24 MG-26 MG TABLET PO SCH (10:41)
[2025-03-17] MEDS: PANTOPRAZOLE SODIUM 40 MG VIAL IVPUSH SCH (12:22)
[2025-03-17] MEDS: VANCOMYCIN/WATER FOR INJ (PEG) 750 MG/150 ML BAG IVPB SCH (21:45)
[2025-03-17] MEDS ORDERED: VANCOMYCIN/WATER FOR INJ (PEG) 1,000 MG/200 ML BAG IVPB SCH (22:00)
[2025-03-18 08:54] LABS: ABSOLUTE IMMATURE GRANULOCYTES 0.03 x10^3/uL (0.0-0.031); BASOPHILS # 0.05 x10^3/uL (0.01-0.08); EOSINOPHIL % 1.6 % (0.8-7.0); EOSINOPHILS # 0.10 x10^3/uL (0.04-0.54); MCHC 32.2 g/dl (32.3-36.5); MEAN CELL VOLUME 86.1 fl (79.0-92.2); MEAN PLT VOLUME 9.8 fl (9.4-12.4); MONOCYTE # 0.44 x10^3/uL (0.30-0.82); MONOCYTE % 7.0 % (5.3-12.2); RDW 19.8 % (12.2-16.1)
[2025-03-18 09:08] LABS: CO2 29.0 mmol/L (21-32); GLUCOSE,RANDOM 88.0 mg/dL (74-106)
[2025-03-18 09:11] LABS: SGPT/ALT 20.0 U/L (13-61)
[2025-03-18 09:12] LABS: CREATININE 1.3 mg/dL (0.55-1.3); SGOT/AST 32.0 U/L (15-37)
[2025-03-18 09:13] LABS: TOT PROT 5.6 g/dl (6.4-8.2)
[2025-03-18 09:14] LABS: ALK PHOS 180.0 U/L (45-117)
[2025-03-18] MEDS ORDERED: MAG HYDROX/AL HYDROX/SIMETH -MYLANTA- ORAL SUSPENSION PO PRN ×2 (10:26→12:10)
[2025-03-19] MEDS: VANCOMYCIN/WATER FOR INJ (PEG) 1,000 MG/200 ML BAG IVPB ONE (01:53)
[2025-03-19 10:24] LABS: ABSOLUTE IMMATURE GRANULOCYTES 0.03 x10^3/uL (0.0-0.031); BASOPHILS # 0.04 x10^3/uL (0.01-0.08); EOSINOPHIL % 1.0 % (0.8-7.0); EOSINOPHILS # 0.07 x10^3/uL (0.04-0.54); MCHC 32.7 g/dl (32.3-36.5); MEAN CELL VOLUME 84.5 fl (79.0-92.2); MEAN PLT VOLUME 9.7 fl (9.4-12.4); MONOCYTE # 0.41 x10^3/uL (0.30-0.82); MONOCYTE % 6.1 % (5.3-12.2); RDW 19.7 % (12.2-16.1)
[2025-03-19] MEDS: VANCOMYCIN/WATER FOR INJ (PEG) 750 MG/150 ML BAG IVPB SCH (11:19)
[2025-03-19 11:38] LABS: CO2 28.0 mmol/L (21-32); GLUCOSE,RANDOM 95.0 mg/dL (74-106)
[2025-03-19 11:41] LABS: CREATININE 1.3 mg/dL (0.55-1.3); SGOT/AST 31.0 U/L (15-37); SGPT/ALT 19.0 U/L (13-61)
[2025-03-19 11:42] LABS: TOT PROT 5.4 g/dl (6.4-8.2)
[2025-03-19 11:43] LABS: ALK PHOS 173.0 U/L (45-117)
[2025-03-19] MEDS: DEXTROSE 5%-0.45% SALINE 1,000 ML IV SCH ×2 (13:40→18:22)
[2025-03-19] MEDS ORDERED: ONDANSETRON 4 MG/2 ML VIAL ONE (14:28)
[2025-03-19] MEDS ORDERED: MIDAZOLAM HCL 2 MG/2 ML SINGLE DOSE VIAL ONE ×2 (14:28→17:37)
[2025-03-19] MEDS ORDERED: ROCURONIUM BROMIDE 50 MG/5 ML SYRINGE ONE ×2 (14:28→16:08)
[2025-03-19] MEDS ORDERED: DEXAMETHASONE SOD PHOSPHATE 4 MG/1 ML VIAL ONE (14:28)
[2025-03-19] MEDS ORDERED: PROPOFOL 20 ML ONE (14:28)
[2025-03-19] MEDS ORDERED: ONDANSETRON 4 MG/2 ML VIAL IVPUSH PRN ×2 (14:36→17:08)
[2025-03-19] MEDS ORDERED: ACETAMINOPHEN 1000 MG/100 ML BAG IVPB ONE (14:36)
[2025-03-19] MEDS ORDERED: SUGAMMADEX SODIUM 200 MG/2 ML VIAL ONE (15:26)
[2025-03-19] MEDS ORDERED: MAG HYDROX/AL HYDROX/SIMETH -MYLANTA- ORAL SUSPENSION PO PRN (17:08)
[2025-03-19] MEDS ORDERED: SENNOSIDES 8.6MG TABLET (FP) PO PRN (17:08)
[2025-03-19] MEDS ORDERED: MELATONIN 5 MG TABLETS PO PRN (17:08)
[2025-03-19] MEDS: HYDROmorphone *PCA* 10MG/50ML DISP.SYRIN PCA SCH (17:20)
[2025-03-19] MEDS: ACETAMINOPHEN 1000 MG/100 ML BAG IVPB ONE (17:28)
[2025-03-19] MEDS: MIDAZOLAM HCL 2 MG/2 ML SINGLE DOSE VIAL IVPUSH PRN (17:40)
[2025-03-19 20:39] LABS: MCHC 29.3 g/dl (32.3-36.5); MEAN CELL VOLUME 97.0 fl (79.0-92.2); MEAN PLT VOLUME 9.9 fl (9.4-12.4); RDW 20.6 % (12.2-16.1)
[2025-03-19] MEDS: FERROUS SO4 325 MG TABLET (FP) PO SCH (21:59)
[2025-03-19] MEDS: DOCUSATE SODIUM 100 MG CAPSULE (FP) PO SCH (21:59)
[2025-03-19] MEDS: SACUBITRIL/VALSARTAN 24 MG-26 MG TABLET PO SCH (21:59)
[2025-03-19] MEDS: ATORVASTATIN CA 80 MG TABLET (FP) PO SCH (21:59)
[2025-03-19] MEDS: INSULIN ASPART SLIDING SCALE (NOVOLOG) 1 VIAL SQ SCH (23:37)
[2025-03-19] MEDS: INSULIN GLARGINE (LANTUS) 100 UNITS/ML UNITS SQ SCH (23:38)
[2025-03-19] MEDS ORDERED: MAG HYDROX/AL HYDROX/SIMETH 30 ML UNIT-DOSE CUP PO PRN (23:43)
[2025-03-20] MEDS: FUROSEMIDE 40 MG TABLET (FP) PO SCH (06:14)
[2025-03-20] MEDS: INSULIN GLARGINE (LANTUS) 100 UNITS/ML UNITS SQ SCH (06:16)
[2025-03-20 10:04] LABS: MCHC 32.7 g/dl (32.3-36.5); MEAN CELL VOLUME 85.5 fl (79.0-92.2); MEAN PLT VOLUME 10.2 fl (9.4-12.4); RDW 18.5 % (12.2-16.1)
[2025-03-20] MEDS: HEPARIN NA (PORCINE) 5,000 UNITS/ML 1ML VIAL SQ SCH (10:25)
[2025-03-20] MEDS: PANTOPRAZOLE SODIUM 40 MG VIAL IVPUSH SCH (10:25)
[2025-03-20] MEDS: CEFTRIAXONE 2 GM in DEXTROSE 5%-WATER 100 ML IVPB SCH (10:25)
[2025-03-20] MEDS: ONDANSETRON 4 MG/2 ML VIAL IVPUSH PRN (11:23)
[2025-03-20] MEDS: DEXTROSE 5%-0.45% SALINE 1,000 ML IV SCH (11:57)
[2025-03-20] MEDS: ACETAMINOPHEN 325 MG TABLET (FP) PO PRN (13:17)
[2025-03-20] MEDS: PREGABALIN 25 MG CAPSULE PO SCH (14:05)
[2025-03-20] MEDS ORDERED: HYDROmorphone *PCA* 10MG/50ML DISP.SYRIN PCA SCH (17:00)
[2025-03-20] MEDS: ACETAMINOPHEN 1000 MG/100 ML BAG IVPB SCH (17:17)
[2025-03-20] MEDS: KETOROLAC TROMETHAMINE 30 MG/1 ML VIAL IVPUSH PRN (19:04)
[2025-03-20] MEDS: HYDROmorphone *PCA* 10MG/50ML DISP.SYRIN PCA SCH (20:13)
[2025-03-21 08:44] LABS: ABSOLUTE IMMATURE GRANULOCYTES 0.03 x10^3/uL (0.0-0.031); BASOPHILS # 0.05 x10^3/uL (0.01-0.08); EOSINOPHIL % 0.6 % (0.8-7.0); EOSINOPHILS # 0.05 x10^3/uL (0.04-0.54); MCHC 33.5 g/dl (32.3-36.5); MEAN CELL VOLUME 83.7 fl (79.0-92.2); MEAN PLT VOLUME 9.6 fl (9.4-12.4); MONOCYTE # 0.57 x10^3/uL (0.30-0.82); MONOCYTE % 7.2 % (5.3-12.2); RDW 18.5 % (12.2-16.1)
[2025-03-21 09:14] LABS: CO2 27 mmol/L (21-32)
[2025-03-21 09:17] LABS: SGPT/ALT 13 U/L (13-61)
[2025-03-21 09:18] LABS: CREATININE 1.0 mg/dL (0.55-1.3); SGOT/AST 42 U/L (15-37)
[2025-03-21 09:19] LABS: TOT PROT 4.6 g/dl (6.4-8.2)
[2025-03-21 09:22] LABS: ALK PHOS 127 U/L (45-117); GLUCOSE,RANDOM 533 mg/dL (74-106)
[2025-03-21] MEDS ORDERED: VANCOMYCIN/WATER FOR INJ (PEG) 750 MG/150 ML BAG IVPB SCH (10:00)
[2025-03-21] MEDS: LACTATED RINGERS SOLUTION 1,000 ML/1,000 ML INFUS.BAG IV SCH (19:42)
[2025-03-22 08:33] LABS: ABSOLUTE IMMATURE GRANULOCYTES 0.02 x10^3/uL (0.0-0.031); BASOPHILS # 0.04 x10^3/uL (0.01-0.08); EOSINOPHIL % 1.5 % (0.8-7.0); EOSINOPHILS # 0.09 x10^3/uL (0.04-0.54); MCHC 33.0 g/dl (32.3-36.5); MEAN CELL VOLUME 84.4 fl (79.0-92.2); MEAN PLT VOLUME 9.5 fl (9.4-12.4); MONOCYTE # 0.49 x10^3/uL (0.30-0.82); MONOCYTE % 8.4 % (5.3-12.2); RDW 18.7 % (12.2-16.1)
[2025-03-22 09:34] LABS: CO2 30.0 mmol/L (21-32); GLUCOSE,RANDOM 85.0 mg/dL (74-106)
[2025-03-22 09:37] LABS: CREATININE 1.0 mg/dL (0.55-1.3); SGOT/AST 48.0 U/L (15-37); SGPT/ALT 14.0 U/L (13-61)
[2025-03-22 09:38] LABS: TOT PROT 4.9 g/dl (6.4-8.2)
[2025-03-22 09:39] LABS: ALK PHOS 138.0 U/L (45-117)
[2025-03-22] MEDS: INSULIN GLARGINE (LANTUS) 100 UNITS/ML UNITS SQ SCH (21:41)
[2025-03-23] MEDS: INSULIN GLARGINE (LANTUS) 100 UNITS/ML UNITS SQ SCH (06:16)
[2025-03-23] MEDS: PANTOPRAZOLE 40 MG TABLET PO SCH (09:40)
[2025-03-23 09:58] LABS: MCHC 33.0 g/dl (32.3-36.5); MEAN CELL VOLUME 84.7 fl (79.0-92.2); MEAN PLT VOLUME 9.2 fl (9.4-12.4); RDW 18.4 % (12.2-16.1)
[2025-03-23 10:32] LABS: CO2 31.0 mmol/L (21-32)
[2025-03-23 10:33] LABS: GLUCOSE,RANDOM 182.0 mg/dL (74-106)
[2025-03-23 10:36] LABS: CREATININE 1.1 mg/dL (0.55-1.3)
[2025-03-24] MEDS: ACETAMINOPHEN 500 MG TABLET (FP) PO SCH (12:36)
[2025-03-24 22:01] VITALS: RESP 18
[2025-03-25 06:59] VITALS: BP 130/72; PULSE 72; TEMP 97.7
== END 2025-03-25 12:02 | DRG 305 ==
LOC: JER 11:09 → JERBED 16:11 → J8W 21:56
PROVIDERS: ADMIT Internal Medicine; ATTEND Internal Medicine
PROC: 30233N1 Transfusion of Nonautologous Red Blood Cells into Peripheral Vein, Percutaneous Approach (ICD-10-PCS; 2025-03-15)
PROC: 0Y6J0Z3 Detachment at Left Lower Leg, Low, Open Approach (ICD-10-PCS; principal; 2025-03-19 16:00)
DX: T87.81 Dehiscence of amputation stump (principal); E11.40 Type 2 diabetes mellitus with diabetic neuropathy, unspecified; E11.51 Type 2 diabetes mellitus with diabetic peripheral angiopathy without gangrene; I13.0 Hypertensive heart and chronic kidney disease with heart failure and stage 1 through stage 4 chronic kidney disease, or unspecified chronic kidney disease; E11.22 Type 2 diabetes mellitus with diabetic chronic kidney disease; N18.9 Chronic kidney disease, unspecified; I50.22 Chronic systolic (congestive) heart failure; I25.10 Atherosclerotic heart disease of native coronary artery without angina pectoris; E11.69 Type 2 diabetes mellitus with other specified complication; M86.8X7 Other osteomyelitis, ankle and foot; Y83.5 Amputation of limb(s) as the cause of abnormal reaction of the patient, or of later complication, without mention of misadventure at the time of the procedure
CPT/HCPCS: 36415; 36430; 71045-TC-FY; 80048; 80053; 82962; 83540; 83550; 85025; 85027; 86803; 86850; 86900; 86901; 86922; 87070; 87205; 87389; 88307-TC; 88311-TC; 93005; 93010; 94010; 94760; 99285-25; G0480; J1756; P9038; P9058